=== PATIENT | female | born 1935 | race Two or more races ===

== ENCOUNTER 2023-06-29 22:32 | Emergency (ER) | payer OTHER ==
[~2023-06-29] VITALS: Ht 154.9 cm; Wt 50.0 kg
[2023-06-30] MEDS: HYDROcodone-ACET 5/325MG TAB PO ONE (00:09)
[2023-06-30 00:54] LABS: Basophils # (auto) 0 10 ^3/uL (0-0.2); Basophils % (auto) 0.5 % (0.0-2.0); Eosinophils # (auto) 0 10 ^3/uL (0-0.8); Eosinophils % (auto) 0.2 % (0.0-7.0); Hematocrit 38.9 % (36.0-46.0); Hemoglobin 13.2 g/dL (12.2-16.2); Lymphocytes % (auto) 39.6 % (10.0-50.0); Mean Corpuscular Hemoglobin 32.8 pg (28.0-32.0); Mean Corpuscular Hgb Conc. 33.9 g/dL (32.0-36.0); Mean Corpuscular Volume 96.8 fL (80.0-100.0); Monocytes # (auto) 0.9 10 ^3/uL (0-1.3); Monocytes % (auto) 11.3 % (0.0-12.0); Neutrophils # (auto) 3.7 10 ^3/uL (1.6-8.6); Neutrophils % (auto) 48.4 % (37.0-80.0); Nucleated Red Blood Cells % 0.4 %; Red Blood Cells 4.02 10^6/uL (4.0-5.20); White Blood Cell 7.6 10^3/uL (4.4-10.8)
[2023-06-30 01:45] LABS: Erythrocyte Sedimentation Rate 28 mm/hr (0-20)
[2023-06-30 02:40] VITALS: BP 152/64; PULSE 82; RESP 18; O2SAT 97
[2023-06-30] MEDS ORDERED: CLIN300C70 PO (04:48)
== END 2023-06-30 02:45 | disposition home or self-care (01) ==
LOC: ER 22:32 → EDBD 22:32 → ER 06-30 02:45
DX: L03.116 Cellulitis of left lower limb (principal); L03.115 Cellulitis of right lower limb; G62.9 Polyneuropathy, unspecified; E11.9 Type 2 diabetes mellitus without complications; I10 Essential (primary) hypertension
CPT/HCPCS: 36415; 73700; 85025; 85652

== ENCOUNTER 2023-07-19 19:42 | Emergency (ER) | payer OTHER ==
[~2023-07-19] VITALS: Ht 160 cm; Wt 58.5 kg
[~2023-07-19 19:42] MED LIST: CLIN300C70 PO
[2023-07-19 20:51] LABS: Basophils # (auto) 0 10 ^3/uL (0-0.2); Basophils % (auto) 0.3 % (0.0-2.0); Eosinophils # (auto) 0 10 ^3/uL (0-0.8); Eosinophils % (auto) 0.4 % (0.0-7.0); Hematocrit 36.1 % (36.0-46.0); Hemoglobin 12.2 g/dL (12.2-16.2); Lymphocytes # (auto) 3.9 10 ^3/uL (0.4-5.4); Lymphocytes % (auto) 51.4 % (10.0-50.0); Mean Corpuscular Hemoglobin 32.8 pg (28.0-32.0); Mean Corpuscular Hgb Conc. 33.8 g/dL (32.0-36.0); Monocytes # (auto) 0.8 10 ^3/uL (0-1.3); Neutrophils # (auto) 2.9 10 ^3/uL (1.6-8.6); Neutrophils % (auto) 37.9 % (37.0-80.0); Nucleated Red Blood Cells % 0.3 %; Red Blood Cells 3.72 10^6/uL (4.0-5.20); Red Cell Distribution Width 14.6 % (11.8-14.3); White Blood Cell 7.6 10^3/uL (4.4-10.8)
[2023-07-19] MEDS: HYDROcodone-ACET 5/325MG TAB PO ONE (20:55)
[2023-07-19 20:56] VITALS: BP 124/65; PULSE 65; RESP 18; TEMP 97.8; O2SAT 99
[2023-07-19 21:08] LABS: Alanine Aminotransferase 19 U/L (7-40); Albumin 4.1 g/dL (3.2-4.8); Alkaline Phosphatase 72 U/L (46-116); Anion Gap 5 (5-15); Aspartate Aminotransferase 20 U/L (13-40); BUN/Creatinine Ratio 10.6 (10.0-20.0); Bilirubin, Total 0.4 mg/dL (0.2-1.0); Blood Urea Nitrogen 25 mg/dL (9-23); CRP High Sensitivity 0.42 mg/dL (<1.0); Calcium 9.5 mg/dL (8.5-10.1); Carbon Dioxide 27 mmol/L (20-30); Chloride 106 mmol/L (98-107); Glucose 123 mg/dL (74-106); Potassium 3.9 mmol/L (3.5-5.1); Sodium 138 mmol/L (136-145); Total Protein 6.8 g/dL (5.7-8.2)
[2023-07-19 21:24] LABS: Erythrocyte Sedimentation Rate 24 mm/hr (0-20)
[2023-07-19] MEDS: PIPERACILLIN-TAZO 4.5GM 100 ML IV ONE (23:18)
[2023-07-19] MEDS ORDERED: ACET300T58 PO (23:40)
== END 2023-07-20 00:25 | disposition home or self-care (01) ==
LOC: ER 19:42
DX: L03.032 Cellulitis of left toe (principal); I12.9 Hypertensive chronic kidney disease with stage 1 through stage 4 chronic kidney disease, or unspecified chronic kidney disease; E11.22 Type 2 diabetes mellitus with diabetic chronic kidney disease; N18.9 Chronic kidney disease, unspecified
CPT/HCPCS: 36415; 73700; 80053; 85025; 85652; 86141; 96365; 99285; J2543

== ENCOUNTER 2023-11-18 10:51 | Emergency (ER) | payer OTHER ==
[~2023-11-18] VITALS: Ht 160 cm; Wt 63.6 kg
[~2023-11-18 10:51] MED LIST changes: +CLIN1CAP70 PO; -CLIN300C70 PO
[2023-11-18 13:16] LABS: Basophils # (auto) 0 10 ^3/uL (0-0.2); Basophils % (auto) 0.3 % (0.0-2.0); Eosinophils # (auto) 0.1 10 ^3/uL (0-0.8); Eosinophils % (auto) 1.5 % (0.0-7.0); Hematocrit 31.6 % (36.0-46.0); Hemoglobin 10.4 g/dL (12.2-16.2); Lymphocytes # (auto) 2.2 10 ^3/uL (0.4-5.4); Lymphocytes % (auto) 36.6 % (10.0-50.0); Mean Corpuscular Hemoglobin 33.4 pg (28.0-32.0); Mean Corpuscular Volume 101.2 fL (80.0-100.0); Monocytes # (auto) 0.6 10 ^3/uL (0-1.3); Monocytes % (auto) 9.5 % (0.0-12.0); Neutrophils # (auto) 3.2 10 ^3/uL (1.6-8.6); Neutrophils % (auto) 52.1 % (37.0-80.0); Nucleated Red Blood Cells % 0.6 %; Red Blood Cells 3.12 10^6/uL (4.0-5.20); Red Cell Distribution Width 16.1 % (11.8-14.3); White Blood Cell 6.1 10^3/uL (4.4-10.8)
[2023-11-18 13:27] LABS: Alanine Aminotransferase 17 U/L (7-40); Albumin 3.8 g/dL (3.2-4.8); Alkaline Phosphatase 63 U/L (46-116); Anion Gap 7 (5-15); Aspartate Aminotransferase 15 U/L (13-40); BUN/Creatinine Ratio 15.5 (10.0-20.0); Bilirubin, Total 0.4 mg/dL (0.2-1.0); Blood Urea Nitrogen 40 mg/dL (9-23); Calcium 9.1 mg/dL (8.5-10.1); Carbon Dioxide 23 mmol/L (20-30); Chloride 108 mmol/L (98-107); Glucose 83 mg/dL (74-106); Potassium 3.5 mmol/L (3.5-5.1); Sodium 138 mmol/L (136-145)
[2023-11-18 13:36] LABS: CRP High Sensitivity 0.93 mg/dL (<1.0)
[2023-11-18 14:04] LABS: Erythrocyte Sedimentation Rate 29 mm/hr (0-20)
[2023-11-18] MEDS: HYDROcodone-ACET 5/325MG TAB PO ONE (22:17)
[2023-11-18] MEDS: ENOXAPARIN SOD 60 MG/0.6 ML SYRINGE SC SCH (22:40)
[2023-11-19 01:00] VITALS: PULSE 63; RESP 19; O2SAT 100
[2023-11-19] MEDS: MORPHINE SULFATE INJ 2 MG/ml SYRG IV ONE (01:21)
[2023-11-19] MEDS: ONDANSETRON HCL 4 MG/2 ML VIAL IV ONE (01:22)
[2023-11-19 01:35] VITALS: BP 152/68; PULSE 68; RESP 19; TEMP 98.2; O2SAT 100
== END 2023-11-18 21:52 | disposition short-term general hospital (02) ==
LOC: ER 10:51 → EDBD 10:51 → ER 21:52
DX: I73.9 Peripheral vascular disease, unspecified (principal); I77.1 Stricture of artery; M79.604 Pain in right leg; M79.605 Pain in left leg; I12.9 Hypertensive chronic kidney disease with stage 1 through stage 4 chronic kidney disease, or unspecified chronic kidney disease; E11.22 Type 2 diabetes mellitus with diabetic chronic kidney disease; N18.9 Chronic kidney disease, unspecified; J44.9 Chronic obstructive pulmonary disease, unspecified; F17.210 Nicotine dependence, cigarettes, uncomplicated
CPT/HCPCS: 36415; 72131; 80053; 83605; 83880; 84484; 85025; 85379; 85652; 86141; 93925; 93970; 96372; 96374; 96375; 99285; J1650

== ENCOUNTER 2024-03-21 11:34 | Emergency (ER) | payer OTHER ==
[~2024-03-21] VITALS: Ht 157.5 cm; Wt 57.0 kg
--- NOTE | 2024-03-21 12:30 | ED.PDOC ---
History of Present Illness(SKN HPI Comments 88 y.o female accompanied by son, presents to the ED for an evaluation of a wound check. Son reports patient has a wound to the left third toe x 2 years, had scab formation which fell off yesterday and now notes wound is exposed with some bone exposure. Patient reports wound care nurse stopped by her home yesterday and noticed the scab had fallen off and referred her to the ED to r/o infection. Patient complains of pain to the wound on palpation. No fever, chills, nausea, vomiting reported. Son states patient is able to ambulate with walker and cane. Patient has a medical history of DM, HTN, CHF, CFK, and COPD. Chief Complaint: Wound Check Time Seen by MD: 12:15 Primary Care Provider: RESHMA History of Present Illness: Nurses Notes, Medications, Allergies Allergies: Coded Allergies: NO KNOWN ALLERGIES (Unverified , 06/29/23) Home Meds Active Scripts Clindamycin Hcl (Clindamycin Hcl) 300 Mg Cap, 1 CAP PO TID for 7 Days, #21 CAP Prov:HANSEL MADDOX 08/21/23 Clindamycin Hcl (Clindamycin Hcl) 300 Mg Cap, 450 MG PO TID for 7 Days, #32 CAP Prov:LINWOOD SCOTT PAC 06/30/23 Information Source: Patient, Relative (son) Mode of Arrival: Wheelchair Severity: Moderate Timing: Came on: Gradually Duration: Since onset Location: Foot Mechanism: Preceding Wound Wound Type: Other Tetanus: UTD History of: Diabetes Associated Signs and Symptoms: Swelling, Pain Past Medical History PAST MEDICAL HISTORY: CKF, COPD, DM, HTN Surgical History: Unknown 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 Family History Family History: Reviewed,noncontributory to illness Social History Smoker: Cigarettes, Greater Than 1 Pack/Day Alcohol: Denies ETOH Use Drugs: Denies Drug Use Lives In: Home Constitutional: denies: chills, diaphoresis, fatigue, fever, malaise, sweats, weakness, others EENTM: denies: blurred vision, double vision, ear bleeding, ear discharge, ear drainage, ear pain, ear ringing, eye pain, eye redness, hearing loss, mouth pain, mouth swelling, nasal discharge, nose bleeding, nose congestion, nose pain, photophobia, tearing, throat pain, throat swelling, voice changes, others Respiratory: denies: cough, hemoptysis, orthopnea, SOB at rest, shortness of breath, SOB with excertion, stridor, wheezing, others Cardiovascular: denies: chest pain, dizzy spells, diaphoresis, Dyspnea on exertion, edema, irregular heart beat, left arm pain, lightheadedness, palpitations, PND, syncope, others Gastrointestinal: denies: abdomen distended, abdominal pain, blood streaked bowels, constipated, diarrhea, dysphagia, difficulty swallowing, hematemesis, melena, nausea, poor appetite, poor fluid intake, rectal bleeding, rectal pain, vomiting, others Genitourinary: denies: abnormal vagina bleeding, burning, dyspareunia, dysuria, flank pain, frequency, hematuria, incontinence, pain, , vagina discharge, urgency, others Neurological: denies: dizziness, fainting, headache, left sided numbness, left sided weakness, numbness, paresthesia, pre-existing deficit, right sided numbness, right sided weakness, seizure, speech problems, tingling, tremors, weakness, others Musculoskeletal: denies: back pain, gout, joint pain, joint swelling, muscle pain, muscle stiffness, neck pain, others Integumetry: reports: wounds (left third toe ); denies: bruises, change in color, change in hair/nails, dryness, laceration, lesions, lumps, rash, others Allergic/Immunocompromised: denies: Difficulty Healing, Frequent Infections, Hives, Itching, others Hematologic/Lymphatic: denies: anemia, blood clots, easy bleeding, easy bruising, swollen glands, others Endocrine: denies: excessive hunger, excessive sweating, excessive thirst, excessive urination, flushing, intolerance to cold, intolerance to heat, unexplained weight gain, unexplained weight loss, others Psychiatric: denies: anxiety, bipolar disorder, depression, hopeless, panic disorder, schizophrenia, sleepless, suicidal, others All Other Systems: Reviewed and Negative Physical Exam General Appearance: Mild Distress, Normal HEENT: Normal ENT Inspection, Pharynx Normal, TMs Normal Neck: Full Range of Motion, Non-Tender, Normal, Normal Inspection Respiratory: Chest Non-Tender, Lungs Clear, No Accessory Muscle Use, No Respiratory Distress, Normal Breath Sounds Cardiovascular: No Edema, No JVD, No Murmur, No Gallop, Normal Peripheral Pulses, Regular Rate/Rhythm Breast Exam: Deferred Gastrointestinal: No Organomegaly, Non Tender, No Pulsatile Mass, Normal Bowel Sounds, Soft Genitalia: Deferred Pelvic: Deferred Rectal: Deferred Extremities: No calf tenderness, Normal capillary refill, Normal inspection, Normal range of motion, Non-tender, No pedal edema Musculoskeletal : Apperance: Normal Neurologic: Alert, director of curriculum and instruction II-XII nml as Tested, No Motor Deficits, Normal Affect, Normal Mood, No Sensory Deficits Cerebellar Function: NOT DONE Reflexes: NOT DONE Skin: Dry, Normal Color, Warm, Wounds (Left 3rd toe) Peripheral Pulses: 3+ Radial (R), 3+ Radial (L) Lymphatic: No Adenopathy Was a procedure done? Was a procedure done?: No Differential Diagnosis (INTG) Differential Diagnosis: Cellulitis Differential Diagnosis: Osteomyelitis, Puncture Wound X-Ray, Labs, Meds, VS Vital Signs Date Time Temp Pulse Resp B/P (MAP) Pulse Ox O2 Delivery O2 Flow Rate FiO2 03/21/24 11:50 97.6 54 18 119/49 (72) 100 Patient alert. Came in because of left foot wound for many years. Has been getting worse recently. Vitals stable. Answering all questions. On examination she has skin breakage in the 3rd toe. No bone exposure. Spoke with [facility] physician. The [facility] physician had stated that she is not a candidate for surgery. She has been worked up fully for peripheral vascular disease. Chronic kidney disease. Has a appointment with her ginger farmer. Was given prescription of Keflex clindamycin antibiotic. Vascular study. [facility] physician will follow the patient. Explained to the patient that she will need to see her primary care physician immediately. Had an appointment set for to follow up with ginger farmer. Was told follow up with her primary care physician. Was told to come back if there is any problem. Time of 1ST Reevaluation: 12:25 Reevaluation 1ST: Improved Patient Education/Counseling: Diagnosis, Treatment, Prognosis Family Education/Counseling: Diagnosis, Treatment, Prognosis Departure 1 Departure Time of Disposition: 12:36 Impression: Primary Impression: Cellulitis Qualified Codes: L03.116 - Cellulitis of left lower limb Additional Impression: Diabetic foot ulcer Qualified Codes: E13.621 - Other specified diabetes mellitus with foot ulcer; L97.529 - Non-pressure chronic ulcer of other part of left foot with unspecified severity Disposition: 09 ADMITTED INPATIENT Admit to: Med Surg Condition: Guarded e-Prescriptions Clindamycin Hcl (Clindamycin Hcl) 300 Mg Cap 150 MG PO TID for 10 Days, #30 CAP Prov: MIGUEL ANGEL CÁRDENAS MD 03/21/24 Cephalexin (KEFLEX CAPSULE) 250 Mg Cp 250 MG PO QID for 10 Days, #40 BOTTLE Prov: MIGUEL ANGEL CÁRDENAS MD 03/21/24 Critical Care Note Critical Care Time?: No Stability Stability form required: No I personally scribed for MIGUEL ANGEL CÁRDENAS MD ([email or web address]) on 03/21/24 at 12:30. Electronically submitted by Dottie Campbell ([facility]). MIGUEL ANGEL CÁRDENAS MD Mar 21, 2024 12:30
[2024-03-21] MEDS ORDERED: CEPH250C PO (12:37)
[2024-03-21] MEDS ORDERED: CLIN1CAP70 PO (12:37)
[2024-03-21 12:53] VITALS: BP 119/49; PULSE 54; RESP 18; TEMP 97.9; O2SAT 100
--- NOTE | 2024-03-21 15:23 | DVHDS2 ---
Discharge Summary Date of Admission Date of Discharge: Mar 21, 2024 Brief Hx & Hospital Course: Patient is an 88-year-old female with past medical history of CKD stage IV, tobacco dependence, peripheral vascular disease, who presents for wound check evaluation of her third left toe. Patient has been receiving home health for her left third toe reportedly for the past 2 years. She noted that the toenail had fallen off. She denies any fever, chills, swelling at the site. She denies any discharge at the site. The toe was inspected and no bone was exposed or noted. Patient did not have any signs of sepsis. Patient was discharged on clindamycin and Keflex for her skin wound. Patient recently completed angioplasty of the right lower extremity. She was planning to have the left lower extremity done during her previous hospitalization however the procedure could not be completed due to her CKD stage IV and inability to lay flat. Cain eddy has pending appointments with podiatry and vascular surgery. I informed the patient that these appointments will be expedited with the assistance of [facility] case management. Patient is to continue home health and bandage changes of the left third toe. Patient will need antibiotic treatment and vascular intervention prior to any surgical intervention due to history of PAD. Patient and son were in agreement with the plan.Patient counseled on importance of smoking cessation for wound healing. Patient discharged home in stable condition. Patient given ER return precautions. [facility] case management to arrange follow-up appointments. Condition at Discharge: Fair Final Diagnosis/Problems List Cellulitis of Left 3rd Toe Secondary Diagnosis: Tobacco Dependence PAD Type 2 DM Bedbound state Discharge Disposition: Home Discharge Instruct/Medications Diet: Cardiac 2g Na,low cholest Activity: No Restrictions, As Tolerated Follow Up/Referral: Folllow up to be arranged with podiatry and vascular surgery ASHLEY with [facility] . Medications: Clindamycin and Keflex Discharge Statement: "Patient was advised to return to the ER or call 911 if any headaches, dizz iness, shortness of breath, chest pain, abdominal pain, bleeding, fevers, or worsening of medical condition. Patient was counseled about treatment plan, medications, possible side effects, patientverbalized understanding. All questions were answered to the best of my ability. This discharge took greater then 30 minutes in planning, reviewing documentation, counseling the patient, and discussing with other team members." ASSESSMENT ASSESSMENT Assessment Cellulitis NEWTON ANGEL DO Mar 21, 2024 15:23
== END 2024-03-21 14:18 | disposition admitted as inpatient to this hospital (09) ==
LOC: ER 11:34
DX: E11.621 Type 2 diabetes mellitus with foot ulcer (principal); L97.521 Non-pressure chronic ulcer of other part of left foot limited to breakdown of skin; L03.032 Cellulitis of left toe; I13.0 Hypertensive heart and chronic kidney disease with heart failure and stage 1 through stage 4 chronic kidney disease, or unspecified chronic kidney disease; E11.22 Type 2 diabetes mellitus with diabetic chronic kidney disease; N18.9 Chronic kidney disease, unspecified; I50.9 Heart failure, unspecified; J44.9 Chronic obstructive pulmonary disease, unspecified; F17.210 Nicotine dependence, cigarettes, uncomplicated; Z79.899 Other long term (current) drug therapy

== ENCOUNTER 2025-03-03 17:36 | Emergency (ER) | payer OTHER ==
[~2025-03-03] VITALS: Ht 170.2 cm; Wt 68.2 kg
[~2025-03-03 17:36] MED LIST changes: +CEPH250C PO
[2025-03-03] MEDS: ACETAMINOPHEN 325 MG TAB PO ONE (18:16)
[2025-03-03] MEDS: SODIUM CHLORIDE 0.9% 1,000 ML IV ONE (18:21)
[2025-03-03 18:22] VITALS: PULSE 76; RESP 18; O2SAT 93
[2025-03-03 19:02] LABS: Hematocrit 29.9 % (36.0-46.0); Hemoglobin 10.1 g/dL (12.2-16.2); Mean Corpuscular Hemoglobin 32.1 pg (28.0-32.0); Mean Corpuscular Volume 94.8 fL (80.0-100.0); Nucleated Red Blood Cells % 0.9 %
[2025-03-03 19:18] LABS: Alanine Aminotransferase 15 U/L (7-40); Albumin 3.5 g/dL (3.2-4.8); Alkaline Phosphatase 54 U/L (46-116); Anion Gap 9 (5-15); BUN/Creatinine Ratio 8.0 (10.0-20.0); Bilirubin, Total 0.4 mg/dL (0.2-1.0); Blood Urea Nitrogen 23 mg/dL (9-23); Carbon Dioxide 24 mmol/L (20-31); Glucose 105 mg/dL (74-106); Lipase 30 U/L (12-53); Potassium 4.6 mmol/L (3.5-5.1); Sodium 141 mmol/L (136-145); Total Protein 6.4 g/dL (5.7-8.2)
[2025-03-03 19:19] LABS: Calcium 8.6 mg/dL (8.7-10.4); Chloride 108 mmol/L (98-107)
[2025-03-03 19:29] LABS: Lactic Acid w/Reflex 2.2 mmol/L (0.4-2.0)
[2025-03-03 19:43] VITALS: PULSE 69; RESP 22; O2SAT 98
--- NOTE | 2025-03-03 22:13 | ED.PDOC ---
History of Present Illness HPI Comments This patient is a 89-year-old female who arrives to the ED today via EMS due to complaints of general weakness with diarrhea, hypotension and fever off and on for the past three days. 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 Patient looked mildly toxic at arrival. Patient did display a fever at arrival. Chief Complaint: General Weakness Time Seen by MD: 17:46 Primary Care Provider: RESHMA Reviewed Notes: Nurses Notes, Supplier Development Manager Notes Allergies: Coded Allergies: NO KNOWN ALLERGIES (Unverified , 06/29/23) Home Meds Active Scripts Clindamycin Hcl (Clindamycin Hcl) 300 Mg Cap, 150 MG PO TID for 10 Days, #30 CAP Prov:MIGUEL ANGEL CÁRDENAS MD 03/21/24 Cephalexin (KEFLEX CAPSULE) 250 Mg Cp, 250 MG PO QID for 10 Days, #40 BOTTLE Prov:MIGUEL ANGEL CÁRDENAS MD 03/21/24 Clindamycin Hcl (Clindamycin Hcl) 300 Mg Cap, 1 CAP PO TID for 7 Days, #21 CAP Prov:HANSEL MADDOX 08/21/23 Clindamycin Hcl (Clindamycin Hcl) 300 Mg Cap, 450 MG PO TID for 7 Days, #32 CAP Prov:LINWOOD SCOTT PAC 06/30/23 Information Source: Patient, Emergency Med Personnel Mode of Arrival: EMS Severity: Moderate Timing: Days Duration: Since onset Prehospital treatment: Treatment Past Medical History PAST MEDICAL HISTORY: CKF, COPD, DM, HTN Surgical History: Unknown 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 Family History Family History: Reviewed,noncontributory to illness Social History Smoker: Cigarettes, Greater Than 1 Pack/Day Alcohol: Denies ETOH Use Drugs: Denies Drug Use Lives In: Home Constitutional: reports: fatigue, fever, weakness; denies: chills, diaphoresis, malaise, sweats, others EENTM: denies: blurred vision, double vision, ear bleeding, ear discharge, ear drainage, ear pain, ear ringing, eye pain, eye redness, hearing loss, mouth pain, mouth swelling, nasal discharge, nose bleeding, nose congestion, nose pain, photophobia, tearing, throat pain, throat swelling, voice changes, others Respiratory: denies: cough, hemoptysis, orthopnea, SOB at rest, shortness of breath, SOB with excertion, stridor, wheezing, others Cardiovascular: denies: chest pain, dizzy spells, diaphoresis, Dyspnea on exertion, edema, irregular heart beat, left arm pain, lightheadedness, palpitations, PND, syncope, others Gastrointestinal: reports: diarrhea; denies: abdomen distended, abdominal pain, blood streaked bowels, constipated, dysphagia, difficulty swallowing, hematemesis, melena, nausea, poor appetite, poor fluid intake, rectal bleeding, rectal pain, vomiting, others Genitourinary: denies: abnormal vagina bleeding, burning, dyspareunia, dysuria, flank pain, frequency, hematuria, incontinence, pain, , vagina discharge, urgency, others Neurological: denies: dizziness, fainting, headache, left sided numbness, left sided weakness, numbness, paresthesia, pre-existing deficit, right sided numbness, right sided weakness, seizure, speech problems, tingling, tremors, weakness, others Musculoskeletal: denies: back pain, gout, joint pain, joint swelling, muscle pain, muscle stiffness, neck pain, others Integumetry: denies: bruises, change in color, change in hair/nails, dryness, laceration, lesions, lumps, rash, wounds, others Allergic/Immunocompromised: denies: Difficulty Healing, Frequent Infections, Hives, Itching, others Hematologic/Lymphatic: denies: anemia, blood clots, easy bleeding, easy bruising, swollen glands, others Endocrine: denies: excessive hunger, excessive sweating, excessive thirst, excessive urination, flushing, intolerance to cold, intolerance to heat, unex plained weight gain, unexplained weight loss, others Psychiatric: denies: anxiety, bipolar disorder, depression, hopeless, panic disorder, schizophrenia, sleepless, suicidal, others Physical Exam General Appearance: Moderate Distress (Patient looks [id number] toxic at time of evaluation.), Normal HEENT: Normal ENT Inspection, Pharynx Normal, TMs Normal Neck: Full Range of Motion, Non-Tender, Normal, Normal Inspection Respiratory: Chest Non-Tender, Lungs Clear, No Accessory Muscle Use, No Respiratory Distress, Normal Breath Sounds Cardiovascular: No Edema, No JVD, No Murmur, No Gallop, Normal Peripheral Pulses, Regular Rate/Rhythm Breast Exam: Deferred Gastrointestinal: Other (Nonspecific diffuse bilateral lower abdominal tenderness to palpation throughout. Abdomen was reasonably soft. No pulsatile masses.) Genitalia: Deferred Pelvic: Deferred Rectal: Deferred Extremities: No calf tenderness, Normal inspection, Non-tender Neurologic: Other (Patient was mildly slow in response. Patient may have some progressive dementia.) Cerebellar Function: NOT DONE Reflexes: NOT DONE Skin: Dry, Normal Color, Warm Lymphatic: No Adenopathy Was a procedure done? Was a procedure done?: No Differential Dx Considerations may include: Sepsis, electrolyte abnormality, acute coronary syndrome, renal disease, hypotension, viral illness X-Ray, Labs, Meds, VS Vital Signs Date Time Temp Pulse Resp B/P (MAP) Pulse Ox O2 Delivery O2 Flow Rate FiO2 03/03/25 22:30 70 20 118/46 (70) 95 03/03/25 21:30 69 20 128/45 (72) 98 03/03/25 21:13 99.1 03/03/25 20:00 69 22 133/45 (74) 92 03/03/25 19:43 99.1 69 22 140/46 (77) 98 99.1 03/03/25 19:43 69 22 98 Nasal Cannula* 2 28 03/03/25 18:22 101.4 76 18 146/47 (80) 93 101.4 03/03/25 18:22 76 18 93 Nasal Cannula* 3 32 03/03/25 18:16 101.4 03/03/25 17:47 77 03/03/25 17:45 101.6 110 17 105/55 95 101.6 Lab Test 03/03/25 22:20 03/03/25 22:19 03/03/25 21:37 03/03/25 20:44 Range/Units Influenza Type A Antigen Negative Negative Influenza Type B Antigen Negative Negative SARS-CoV-2 Antigen (Rapid) Negative NEGATIVE Troponin I High Sensitivity 32 </=34 ng/L Lactic Acid Level 1.9 0.4-2.0 mmol/L Test 03/03/25 19:43 03/03/25 18:40 Range/Units Troponin I High Sensitivity 34 39 *H </=34 ng/L White Blood Count 16.9 H 4.4-10.8 10^3/uL Red Blood Count 3.16 L 4.0-5.20 10^6/uL Hemoglobin 10.1 L 12.2-16.2 g/dL Hematocrit 29.9 L 36.0-46.0 % Mean Corpuscular Volume 94.8 80.0-100.0 fL Mean Corpuscular Hemoglobin 32.1 H 28.0-32.0 pg Mean Corpuscular Hemoglobin Concent 33.9 32.0-36.0 g/dL Red Cell Distribution Width 14.7 H 11.8-14.3 % Platelet Count 251 140-450 10^3/uL Mean Platelet Volume 8.9 6.9-10.8 fL Neutrophils (%) (Auto) 67.1 37.0-80.0 % Lymphocytes (%) (Auto) 18.5 10.0-50.0 % Monocytes (%) (Auto) 13.8 H 0.0-12.0 % Eosinophils (%) (Auto) 0.2 0.0-7.0 % Basophils (%) (Auto) 0.4 0.0-2.0 % Neutrophils # (Auto) 11.4 H 1.6-8.6 10 ^3/uL Lymphocytes # (Auto) 3.1 0.4-5.4 10 ^3/uL Monocytes # (Auto) 2.3 H 0-1.3 10 ^3/uL Eosinophils # (Auto) 0 0-0.8 10 ^3/uL Basophils # (Auto) 0.1 0-0.2 10 ^3/uL Nucleated Red Blood Cells 0.9 % Sodium Level 141 136-145 mmol/L Potassium Level 4.6 3.5-5.1 mmol/L Chloride Level 108 H 98-107 mmol/L Carbon Dioxide Level 24 20-31 mmol/L Anion Gap 9 5-15 Blood Urea Nitrogen 23 9-23 mg/dL Creatinine 2.89 H 0.550-1.02 mg/dL Glomerular Filtration Rate Calc 15 >90 mL/min BUN/Creatinine Ratio 8.0 L 10.0-20.0 Serum Glucose 105 74-106 mg/dL Lactic Acid Level 2.2 *H 0.4-2.0 mmol/L Calcium Level 8.6 L 8.7-10.4 mg/dL Total Bilirubin 0.4 0.2-1.0 mg/dL Aspartate Amino Transferase (AST) 32 13-40 U/L Alanine Aminotransferase (ALT) 15 7-40 U/L Alkaline Phosphatase 54 46-116 U/L B-Type Natriuretic Peptide 237.33 0-100 pg/mL Total Protein 6.4 5.7-8.2 g/dL Albumin 3.5 3.2-4.8 g/dL Lipase 30 12-53 U/L Current Medications Medications (Trade) Dose Ordered Sig/Ashley Route Start Time Stop Time Status Last Admin Acetaminophen (Tylenol Tablet) 1,000 mg ONCE ONCE PO 03/03/25 18:00 03/03/25 18:01 DC 03/03/25 18:16 Sodium Chloride 1,000 ml @ 150 mls/hr Q6H40M ONCE IV 03/03/25 18:00 03/04/25 00:39 03/03/25 18:21 X-Ray, Labs, Meds, VS Comment All studies performed in the ED were evaluated by me personally. Several studies were pending at time of this note. Serum studies confirmed a leukocytosis, moderate anemia, elevated lactic acid, elevated troponin and what appears to be poorly controlled CHF. Patient will be admitted to address the general weakness which may be related to her leukocytosis and CHF concerns. This patient's insurance is [employer] and therefore, I discussed the patient presentation as well as laboratory and EKG results with Dr. Cueva. She has advised to send the patient home on oral antibiotics and she would schedule the patient for outpatient follow up with Cardiology and primary care provider. Time of 1ST Reevaluation: 22:12 Reevaluation 1ST: Improved Consultation: PCP, Cardiology Patient Education/Counseling: Diagnosis, Treatment Family Education/Counseling: Diagnosis, Treatment SEPSIS Sepsis Screen Date sepsis recognized/suspect: Mar 03, 2025 Time Sepsis recognized/suspect: 1947 Recent Procedure: No On Antibiotic Therapy: No Respiratory Rate >20: Yes Heart Rate >90: No Temp<36 C (96.8 F) or >38.3 C: No SBP <90 or MAP <65 mmHG: No New Acute Mental Status Change: No Is the patient on CPAP, BIPAP,: No Physician Orders Sodium Chloride 0.9% (03/03/25 18:00) Heplock Iv (03/03/25 ) Urinalysis (03/03/25 17:58) Insert Rivera Catheter QSHIFT (03/03/25 17:58) Urine Bacterial Culture (03/03/25 17:58) Blood Culture (03/03/25 17:58) Sulfamethoxazole W/Trimeth Tab (Bactrim (03/03/25 23:15) Vital Signs Date Time Temp Pulse Resp B/P (MAP) Pulse Ox O2 Delivery O2 Flow Rate FiO2 03/03/25 22:30 70 20 118/46 (70) 95 03/03/25 21:30 69 20 128/45 (72) 98 03/03/25 21:13 99.1 03/03/25 20:00 69 22 133/45 (74) 92 03/03/25 19:43 99.1 69 22 140/46 (77) 98 99.1 03/03/25 19:43 69 22 98 Nasal Cannula* 2 28 03/03/25 18:22 101.4 76 18 146/47 (80) 93 101.4 03/03/25 18:22 76 18 93 Nasal Cannula* 3 32 03/03/25 18:16 101.4 03/03/25 17:47 77 03/03/25 17:45 101.6 110 17 105/55 95 101.6 Laboratory Tests Test 03/03/25 18:40 03/03/25 20:44 Lactic Acid Level 2.2 mmol/L (0.4-2.0) *H 1.9 mmol/L (0.4-2.0) White Blood Count 16.9 10^3/uL (4.4-10.8) H Medications Medications Dose Ordered Sig/Ashley Route Start Time Stop Time Status Last Admin Dose Admin Acetaminophen 1,000 mg ONCE ONCE PO 03/03/25 18:00 03/03/25 18:01 DC 03/03/25 18:16 Sodium Chloride 1,000 ml @ 150 mls/hr Q6H40M ONCE IV 03/03/25 18:00 03/04/25 00:39 03/03/25 18:21 Departure 1 Departure Time of Disposition: 22:12 Impression: Primary Impression: Leukocytosis Additional Impressions: Anemia Elevated lactic acid level Elevated troponin Acute exacerbation of CHF (congestive heart failure) Disposition: HOME / SELF CARE / HOMELESS Condition: Fair Additional Instructions: Advised patient utilize antibiotics as directed until completion additionally, patient will be contacted by her insurance carrier to be re-evaluated by Cardiology and her primary care provider. e-Prescriptions Acetaminophen (Acetaminophen) 500 Mg Tab 500 MG PO Q4HP PRN, #30 TAB Prov: MILAN YEE [facility] 03/03/25 Ondansetron Odt 4MG Tab (ZOFRAN PO) 4 Mg Tb 4 MG PO Q6HP PRN, #20 TAB ODT TAB-DISSOLVE IN MOUTH, THEN SWALLOW Prov: MILAN YEE [facility] 03/03/25 Sulfamethoxazole W/Trimethopri (Bactrim Ds Tablet) 1 Tab Tb 1 TAB PO BID for 7 Days, #14 TAB Prov: MILAN YEE [facility] 03/03/25 Discharged With: Self, Friend Critical Care Note Critical Care Time?: No Stability Stability form required: No Heart Score Heart Score: Heart Score Response (Comments) Value History N/A 0 EKG N/A 0 Age N/A 0 Risk Factors N/A 0 Troponin N/A 0 Total 0 MILAN YEE [facility] Mar 03, 2025 22:13
--- NOTE | 2025-03-03 22:22 | ECG ---
[facility] Test Date: 2025-03-03 Test Time: 17:47:26 Pat Name: GENI SPOKANE Department: [facility] ED Patient ID: [facility]-[id number] Room: Gender: F Director Of Accounts Receivable: : 1935 Requested By: MILAN YEE Order Number: [id number] Reading MD: Brandon Downey Measurements Intervals [place] Rate: 77 P: 57 SD: 160 QRS: 68 QRSD: 68 T: 178 QT: 449 QTc: 509 Interpretive Statements Sinus rhythm Consider left atrial enlargement Consider left ventricular hypertrophy Abnrm T, consider ischemia, anterolateral lds Prolonged QT interval Electronically Signed On 03-06-2025 18:41:59 PDT by Brandon Downey Please click the below link to view image of tracing.
[2025-03-03 23:03] LABS: COVID19 ANTIGEN SOFIA FIA NEGATIVE (NEGATIVE)
[2025-03-03] MEDS: SULFAMETHOX W/TRIMETH(800/160MG) DS TAB PO ONE (23:15)
[2025-03-03] MEDS ORDERED: ZOFR4T PO (23:18)
[2025-03-03] MEDS ORDERED: ACET500T58 PO (23:18)
[2025-03-03] MEDS ORDERED: BACDST PO (23:18)
--- NOTE | 2025-03-04 01:11 | DVH ---
CHEST RADIOGRAPH Indication: fever Technique: Single frontal view of the chest was obtained COMPARISON: None FINDINGS: Lines and Tubes: None Lungs: Moderate diffuse increased prominence of the pulmonary vasculature. Probable small left pleura l effusion. No pneumothorax. Cardiomediastinal contours: Cardiomegaly. Bones: Unremarkable IMPRESSION: 1. Cardiomegaly with moderate pulmonary vascular congestion and probable small left pleural effusion.
[2025-03-04] MEDS ORDERED: FUROSEMIDE 40 MG/4 ML VIAL IV ONE (02:00)
[2025-03-04] MEDS ORDERED: FUROSEMIDE 40 MG TAB PO ONE (02:15)
[2025-03-04] MEDS: FUROSEMIDE 40 MG TAB PO ONE (02:17)
[2025-03-04 07:29] VITALS: PULSE 88; PULSE 92; RESP 22; RESP 29; O2SAT 92; O2SAT 96
[2025-03-04] MEDS ORDERED: levoFLOXacin 500 MG TAB PO ONE (10:15)
[2025-03-04 10:17] VITALS: BP 135/59; PULSE 92; RESP 19; TEMP 97.7; O2SAT 97
--- NOTE | 2025-03-05 18:27 | DVHDS2 ---
Physician Discharge Progress N Final Diagnosis: Elevated WBC, possibly due to UTI Operations or Procedures: Operations or Procedures none Other Interventions Other Interventions lab results, EKG, CXR Consultations: Consultations none Commentary: Commentary 89-year-old female, hospice patient with COPD, HTN, DM, dementia was brought to the ED today c/o general weakness, fever, diarrhea, hypotension for the past three days. However, in the ER her blood pressure was elevated and she was given Hydralazine. Her first troponin was 39, then it was repeated twice and was 34 and 32. CXR showed no PNA. COVID and FLU results were negative. WBC was elevated, possibly due to UTI, since the patient had h/o previous UTIs. Patient received Rocephin and Bactrim in the ED. Her VS were stable and she was discharged home to continue Abx and f/u with PMD and hospice care. Condition on Discharge: Stable Disposition: Hospice - Home SNF Discharge Will this Physician continue t: No Discharge Instructions: Diet: Consistent carbohydrate Activity: No Restrictions, As Tolerated Follow Up/Referral: PMD and hospice Medications: Continue home medications and Bactrim Follow Up Care: Discharge Statement: "Patient was advised to return to the ER or call 911 if any headaches, dizziness, shortness of breath, chest pain, abdominal pain, bleeding, fevers, or worsening of medical condition. Patient was counseled about treatment plan, medications, possible side effects, patientverbalized understanding. All questions were answered to the best of my ability. This discharge took greater then 30 minutes in planning, reviewing documentation, counseling the patient, and discussing with other team members." DAMON COLEMAN MD Mar 05, 2025 18:27
== END 2025-03-04 10:44 | disposition home or self-care (01) ==
LOC: ER 17:36 → EDBD 17:36 → ER 03-04 10:44
DX: I11.0 Hypertensive heart disease with heart failure (principal); I50.9 Heart failure, unspecified; J44.9 Chronic obstructive pulmonary disease, unspecified; F03.90 Unspecified dementia, unspecified severity, without behavioral disturbance, psychotic disturbance, mood disturbance, and anxiety; E11.9 Type 2 diabetes mellitus without complications; D72.829 Elevated white blood cell count, unspecified; D64.9 Anemia, unspecified; E87.20 Acidosis, unspecified; F17.210 Nicotine dependence, cigarettes, uncomplicated; Z87.440 Personal history of urinary (tract) infections; R19.7 Diarrhea, unspecified; R50.9 Fever, unspecified; E86.0 Dehydration; Z20.822 Contact with and (suspected) exposure to COVID-19
CPT/HCPCS: 36415; 71045; 80053; 83605; 83690; 83880; 84484; 85025; 87040; 87426; 87804; 93005; 96361; 96365; 99285; J0696; J7030; 96375

== ENCOUNTER 2025-03-16 04:33 | Inpatient (IN) | payer OTHER ==
[~2025-03-16] VITALS: Ht 160 cm; Wt 50.7 kg
[~2025-03-16 04:33] MED LIST changes: +ACET500T58 PO; +BACDST PO; +ZOFR4T PO
--- NOTE | 2025-03-16 05:37 | ECG ---
[facility] Test Date: 2025-03-16 Test Time: 05:20:20 Pat Name: GENI LEDYARD Department: [facility] ED Room: 0279T Gender: F Developer Designer: ASIM : [id number] Requested By: YANET GIBSON Order Number: [id number] Reading MD: Brandon Downey Measurements Intervals [place] Rate: 69 P: 51 OR: 152 QRS: 42 QRSD: 73 T: 20 QT: 362 QTc: 388 Interpretive Statements Sinus rhythm Atrial premature complex Abnormal R-wave progression, early transition Consider left ventricular hypertrophy Electronically Signed On 03-23-2025 13:16:17 PST by Brandon Downey Please click the below link to view image of tracing.
[2025-03-16] MEDS: SODIUM CHLORIDE 0.9% 1,000 ML IV ONE ×2 (05:45→10:25)
[2025-03-16] MEDS: ACETAMINOPHEN 325 MG TAB PO ONE (05:48)
[2025-03-16] MEDS: SODIUM CHLORIDE 0.9% 500 ML IV ONE (06:16)
--- NOTE | 2025-03-16 06:19 | DVH ---
CHEST RADIOGRAPH Indication: Suspected Sepsis Technique: Single frontal view of the chest was obtained COMPARISON: XY CHEST PORTABLE on DOS: 03/04/25 FINDINGS: Lines and Tubes: None Lungs: Increased interstitial prominence. This may represent pulmonary vascular congestion and/or vir al pneumonia. Pleura: No effusion.No pneumothorax. Cardiomediastinal contours: Cardiomegaly. Bones: Unremarkable IMPRESSION: Increased interstitial prominence. This may represent pulmonary vascular congestion and/or viral pneumonia.
[2025-03-16 06:30] LABS: Hematocrit 28.6 % (36.0-46.0); Hemoglobin 9.5 g/dL (12.2-16.2); Mean Corpuscular Hemoglobin 31.8 pg (28.0-32.0); Mean Corpuscular Volume 95.1 fL (80.0-100.0); Nucleated Red Blood Cells % 0.0 %
[2025-03-16 06:38] LABS: Chloride 104 mmol/L (98-107); Potassium 4.7 mmol/L (3.5-5.1)
[2025-03-16 06:40] LABS: Anion Gap 8 (5-15); Calcium 8.7 mg/dL (8.7-10.4); Carbon Dioxide 23 mmol/L (20-31)
[2025-03-16 06:43] LABS: Sodium 135 mmol/L (136-145)
[2025-03-16 06:45] LABS: BUN/Creatinine Ratio 6.0 (10.0-20.0); Blood Urea Nitrogen 20 mg/dL (9-23)
[2025-03-16 06:46] LABS: Glucose 144 mg/dL (74-106)
--- NOTE | 2025-03-16 07:03 | ED.PDOC ---
History of Present Illness HPI Comments 89-year-old female BIBA with son by bedside, prior medical history of CKD stage IV, COPD, diabetes, hypertension and a chief complaint of generalized weakness. Son reports on numbness in the patient being confused as a "deer seeing car lights, left arm pain and unable to lift it by herself, 91% on 3L O2 via NC, which all started 0300 this morning. Denies any other symptoms at this time. Denies chills, fever, N/V/D, SOB, CP. No other associated symptoms, modifiers, recent injuries or sick contacts present at this time. Chief Complaint: General Weakness Time Seen by MD: 07:00 Primary Care Provider: RESHMA Reviewed Notes: Nurses Notes, Medications, Allergies Allergies: Coded Allergies: NO KNOWN ALLERGIES (Unverified , 06/29/23) Home Meds Active Scripts Acetaminophen (Acetaminophen) 500 Mg Tab, 500 MG PO Q4HP PRN, #30 TAB Prov:MILAN YEE PAC 03/03/25 Ondansetron Odt 4MG Tab (ZOFRAN PO) 4 Mg Tb, 4 MG PO Q6HP PRN, #20 TAB ODT TAB-DISSOLVE IN MOUTH, THEN SWALLOW Prov:MILAN YEE PAC 03/03/25 Sulfamethoxazole W/Trimethopri (Bactrim Ds Tablet) 1 Tab Tb, 1 TAB PO BID for 7 Days, #14 TAB Prov:MILAN YEE PAC 03/03/25 Clindamycin Hcl (Clindamycin Hcl) 300 Mg Cap, 150 MG PO TID for 10 Days, #30 CAP Prov:MIGUEL ANGEL CÁRDENAS MD 03/21/24 Cephalexin (KEFLEX CAPSULE) 250 Mg Cp, 250 MG PO QID for 10 Days, #40 BOTTLE Prov:MIGUEL ANGEL CÁRDENAS MD 03/21/24 Clindamycin Hcl (Clindamycin Hcl) 300 Mg Cap, 1 CAP PO TID for 7 Days, #21 CAP Prov:HANSEL MADDOX 08/21/23 Clindamycin Hcl (Clindamycin Hcl) 300 Mg Cap, 450 MG PO TID for 7 Days, #32 CAP Prov:LINWOOD SCOTT PAC 06/30/23 Information Source: Patient, Relative (Child) Mode of Arrival: EMS Severity: Moderate Timing: Hours Duration: Since onset, Hours Prehospital treatment: None Past Medical History PAST MEDICAL HISTORY: CKF, COPD, DM, HTN Surgical History: Unknown [employer] History: Unknown Family History Family History: Reviewed,noncontributory to illness, Unknown Social History Smoker: Quit Greater Than 1 Year Alcohol: Denies ETOH Use Drugs: Denies Drug Use Lives In: Home Unable to Obtain due to: Altered Mental Status All Other Systems: Reviewed and Negative Physical Exam General Appearance: Moderate Distress, Normal HEENT: Normal ENT Inspection, Pharynx Normal, TMs Normal Neck: Full Range of Motion, Non-Tender, Normal, Normal Inspection Respiratory: Chest Non-Tender, Lungs Clear, No Accessory Muscle Use, No Respiratory Distress, Normal Breath Sounds Cardiovascular: No Edema, No JVD, No Murmur, No Gallop, Normal Peripheral Pulses, Regular Rate/Rhythm Breast Exam: Deferred Gastrointestinal: No Organomegaly, Non Tender, No Pulsatile Mass, Normal Bowel Sounds, Soft Genitalia: Deferred Pelvic: Deferred Rectal: Deferred Extremities: No calf tenderness, Normal capillary refill, Non-tender, No pedal edema Musculoskeletal : Apperance: Normal Neurologic: Alert, vocational rehab consultant II-XII nml as Tested, No Motor Deficits, Normal Affect, Normal Mood, No Sensory Deficits Cerebellar Function: NOT DONE Reflexes: NOT DONE Skin: Dry, Normal Color, Warm Peripheral Pulses: 3+ Radial (R), 3+ Radial (L) Lymphatic: No Adenopathy Was a procedure done? Was a procedure done?: No Differential Dx Considerations may include: Anemia Electrolyte imbalance X-Ray, Labs, Meds, VS Vital Signs Date Time Temp Pulse Resp B/P (MAP) Pulse Ox O2 Delivery O2 Flow Rate FiO2 03/16/25 08:00 66 03/16/25 08:00 97.9 65 15 118/45 (69) 96 97.9 03/16/25 07:00 68 15 121/42 (68) 94 03/16/25 06:58 101.5 03/16/25 06:58 101.5 101.5 03/16/25 05:48 101.9 03/16/25 05:30 Nasal Cannula* 2 28 03/16/25 05:24 101.9 101.9 03/16/25 05:20 69 03/16/25 05:12 100.8 66 22 139/47 (77) 97 100.8 03/16/25 04:47 102.1 70 16 110/63 96 102.1 Lab Test 03/16/25 08:28 03/16/25 05:51 Range/Units Urine Color Yellow Yellow Urine Clarity Turbid H Clear Urine pH 5.5 5.0-9.0 Urine Specific [place] 1.021 1.001-1.035 Urine Protein 1+ H Negative Urine Ketones Trace Negative Urine Blood Negative Negative /uL Urine Nitrite Negative Negative Urine Bilirubin Negative Negative Urine Urobilinogen Normal Negative mg/dL Urine Leukocyte Esterase Negative Negative /uL Urine RBC 2 0 - 4 /hpf Urine Microscopic WBC 2 0-5 /HPF Urine Squamous Epithelial Cells None seen <5 /hpf Urine Bacteria None seen None Seen /hpf Urine Hyaline Casts Many 0 - 2 /lpf Urine Granular Casts Many 0 /lpf Urine Mucus Few None Seen Urine Glucose Normal Normal mg/dL White Blood Count 9.8 4.4-10.8 10^3/uL Red Blood Count 3.00 L 4.0-5.20 10^6/uL Hemoglobin 9.5 L 12.2-16.2 g/dL Hematocrit 28.6 L 36.0-46.0 % Mean Corpuscular Volume 95.1 80.0-100.0 fL Mean Corpuscular Hemoglobin 31.8 28.0-32.0 pg Mean Corpuscular Hemoglobin Concent 33.4 32.0-36.0 g/dL Red Cell Distribution Width 15.1 H 11.8-14.3 % Platelet Count 353 140-450 10^3/uL Mean Platelet Volume 7.9 6.9-10.8 fL Neutrophils (%) (Auto) 67.5 37.0-80.0 % Lymphocytes (%) (Auto) 14.2 10.0-50.0 % Monocytes (%) (Auto) 17.9 H 0.0-12.0 % Eosinophils (%) (Auto) 0.1 0.0-7.0 % Basophils (%) (Auto) 0.3 0.0-2.0 % Neutrophils # (Auto) 6.6 1.6-8.6 10 ^3/uL Lymphocytes # (Auto) 1.4 0.4-5.4 10 ^3/uL Monocytes # (Auto) 1.8 H 0-1.3 10 ^3/uL Eosinophils # (Auto) 0 0-0.8 10 ^3/uL Basophils # (Auto) 0 0-0.2 10 ^3/uL Nucleated Red Blood Cells 0.0 % Sodium Level 135 L 136-145 mmol/L Potassium Level 4.7 3.5-5.1 mmol/L Chloride Level 104 98-107 mmol/L Carbon Dioxide Level 23 20-31 mmol/L Anion Gap 8 5-15 Blood Urea Nitrogen 20 9-23 mg/dL Creatinine 3.36 H 0.550-1.02 mg/dL Glomerular Filtration Rate Calc 13 >90 mL/min BUN/Creatinine Ratio 6.0 L 10.0-20.0 Serum Glucose 144 H 74-106 mg/dL Lactic Acid Level 1.0 0.4-2.0 mmol/L Calcium Level 8.7 8.7-10.4 mg/dL Troponin I High Sensitivity 14 </=34 ng/L Current Medications Medications (Trade) Dose Ordered Sig/Ashley Route Start Time Stop Time Status Last Admin Acetaminophen (Tylenol Tablet) 650 mg ONCE ONCE PO 03/16/25 05:30 03/16/25 05:31 DC 03/16/25 05:48 Sodium Chloride 500 ml @ 500 mls/hr Q1H ONCE IV 03/16/25 05:45 03/16/25 06:44 DC 03/16/25 06:16 Ceftriaxone Sodium 50 ml @ 100 mls/hr ONCE ONCE IV 03/16/25 07:15 03/16/25 07:44 DC 03/16/25 07:27 Azithromycin 250 ml @ 125 mls/hr ONCE ONCE IV 03/16/25 07:15 03/16/25 09:14 DC 03/16/25 07:27 Sodium Chloride 1,000 ml @ 1,000 mls/hr Q1H ONCE IV 03/16/25 07:15 03/16/25 08:14 DC 03/16/25 10:25 PROCEDURE(s): LHAN2 - L HAND 2V XRAY FINDINGS/IMPRESSION: : There is no evidence of acute fracture or dislocation. Soft tissues are unremarkable. Overlying artifact obscures visualization of the 4th proximal phalanx. CHEST RADIOGRAPH IMPRESSION: Increased interstitial prominence. This may represent pulmonary vascular congestion and/or viral pneumonia. Patient alert. Vitals stable. Moving all extremities. Answering questions. Possible sepsis. Complaining of left hand pain. Establish intravenous access. Was given fluids. Was given Tylenol. WBC within normal limits. Has a anemia. Blood sugar slightly elevated. Explained to the family. Continue monitoring. Time of 1ST Reevaluation: 07:30 Reevaluation 1ST: Unchanged Patient Education/Counseling: Diagnosis, Treatment, Prognosis Family Education/Counseling: Diagnosis, Treatment, Prognosis SEPSIS Sepsis Screen Date sepsis recognized/suspect: Mar 16, 2025 Time Sepsis recognized/suspect: 529 Recent Procedure: No On Antibiotic Therapy: No Respiratory Rate >20: Yes Heart Rate >90: No Temp<36 C (96.8 F) or >38.3 C: Yes SBP <90 or MAP <65 mmHG: No New Acute Mental Status Change: Yes Is the patient on CPAP, BIPAP,: No Physician Orders Sodium Chloride 0.9% (03/16/25 05:45) Vital Signs Q1HR (03/16/25 05:32) Saline Lock (03/16/25 05:32) Sheet Metal Helper (03/16/25 ) Rectal/Core Temps Only (03/16/25 05:32) Notify Md If Abnormal Vs (03/16/25 05:32) Blood Culture (03/16/25 05:32) Chest Xray 1 View (03/16/25 05:32) L Hand 2v Xray (03/16/25 06:49) Vital Signs Date Time Temp Pulse Resp B/P (MAP) Pulse Ox O2 Delivery O2 Flow Rate FiO2 03/16/25 08:00 66 03/16/25 08:00 97.9 65 15 118/45 (69) 96 97.9 03/16/25 07:00 68 15 121/42 (68) 94 03/16/25 06:58 101.5 03/16/25 06:58 101.5 101.5 03/16/25 05:48 101.9 03/16/25 05:30 Nasal Cannula* 2 28 03/16/25 05:24 101.9 101.9 03/16/25 05:20 69 03/16/25 05:12 100.8 66 22 139/47 (77) 97 100.8 03/16/25 04:47 102.1 70 16 110/63 96 102.1 Laboratory Tests Test 03/16/25 05:51 Lactic Acid Level 1.0 mmol/L (0.4-2.0) White Blood Count 9.8 10^3/uL (4.4-10.8) Medications Medications Dose Ordered Sig/Ashley Route Start Time Stop Time Status Last Admin Dose Admin Acetaminophen 650 mg ONCE ONCE PO 03/16/25 05:30 03/16/25 05:31 DC 03/16/25 05:48 Azithromycin 250 ml @ 125 mls/hr ONCE ONCE IV 03/16/25 07:15 03/16/25 09:14 DC 03/16/25 07:27 Ceftriaxone Sodium 50 ml @ 100 mls/hr ONCE ONCE IV 03/16/25 07:15 03/16/25 07:44 DC 03/16/25 07:27 Sodium Chloride 500 ml @ 500 mls/hr Q1H ONCE IV 03/16/25 05:45 03/16/25 06:44 DC 03/16/25 06:16 Sodium Chloride 1,000 ml @ 1,000 mls/hr Q1H ONCE IV 03/16/25 07:15 03/16/25 08:14 DC 03/16/25 10:25 Departure 1 Departure Time of Disposition: 07:29 Impression: Primary Impression: Sepsis, unspecified organism Qualified Codes: A41.9 - Sepsis, unspecified organism Additional Impressions: Anemia Qualified Codes: D64.9 - Anemia, unspecified Uncontrolled diabetes mellitus Qualified Codes: E13.65 - Other specified diabetes mellitus with hyperglycemia Disposition: ADMITTED INPATIENT Admit to: Med Surg Condition: Guarded Critical Care Note Critical Care Time?: Yes (90 min-critical care time only) Stability Stability form required: No Heart Score Heart Score: Heart Score Response (Comments) Value History Slightly Suspicious 0 EKG Normal 0 Age >65 2 Risk Factors >3 or Hx ASHD 2 Troponin Normal limit 0 Total 4 I personally scribed for MIGUEL ANGEL CÁRDENAS MD ([email or web address]) on 03/16/25 at 07:03. Electronically submitted by Scottie De Jesus ([email or web address]). I personally scribed for MIGUEL ANGEL CÁRDENAS MD ([email or web address]) on 03/16/25 at 10:39. Electronically submitted by Claire Cooper ([email or web address]). I personally scribed for MIGUEL ANGEL CÁRDENAS MD ([email or web address]) on 03/16/25 at 10:40. Electronically submitted by Claire Cooper ([email or web address]). MIGUEL ANGEL CÁRDENAS MD Mar 16, 2025 07:03
[2025-03-16] MEDS: AZITHROMYCIN 500MG/250ML 250 ML IV ONE (07:27)
--- NOTE | 2025-03-16 07:57 | DVH ---
CLINICAL INDICATION: pain TECHNIQUE: XY L HAND 2V XRAY Comparison: XY L FOOT 3 VIEW XRAY on DOS: 08/21/23 FINDINGS/IMPRESSION: : There is no evidence of acute fracture or dislocation. Soft tissues are unremarkable. Overlying artifact obscures visualization of the 4th proximal phalanx.
[2025-03-16 08:36] LABS: Urine Protein, UAD 1+ (Negative)
[2025-03-16] MEDS ORDERED: ONDANSETRON HCL 4 MG/2 ML VIAL IV PRN (12:45)
[2025-03-16] MEDS ORDERED: DOCUSATE SOD 100 MG CAP PO PRN (12:45)
--- NOTE | 2025-03-16 12:56 | DVHHP2 ---
History of Present Illness Reason for Visit: Generalized weakness History of Present Illness Lyubov Mark is an 89-year-old female with past medical history of hypertension, who was brought to the hospital for generalized weakness. Patient lives with her son. He brought her in stating she has not been eating or drinking well and has been becoming weaker over the last few days. On assessment the patient answers to her name, but can not tell me her name, she is also not able to move her left arm and complains of pain. The son is concerned because she has not been eating well for the last few days. The nurse states he insist on feeding her even when she does not want it. The patient is pocketing the adelaide d. When the nurse turned her to clean her up food came our of her mouth. Cardiovascular: HTN Pulmonary: COPD Endocrine: Diabetes Smoke: No ALCOHOL: none Drugs: None Lives: with Family Domestic Violence: Neg Review of Systems Constitutional: Yes: Other (decreased appetite); No: Fever, Chills, Sweats, Weakness, Malaise Eyes: No: Pain, Vision change, Conjunctivae inflammation, Eyelid inflammation, Other, Redness ENT: No: Ear pain, Ear discharge, Nose pain, Nose discharge, Nose congestion, M outh pain, Mouth swelling, Throat pain, Throat swelling, Other Respiratory: No: Cough, Dry, Shortness of breath, SOB with excertion, Wheezing, Hemoptysis, Pleuritic Pain, Sputum, Wheezing, Other Cardiovascular: No: Chest Pain, Palpitations, Orthopnea, Paroxysmal Noc. Dyspnea, Edema, Lt Headedness, Other Gastrointestinal: No: Nausea, Vomiting, Abdominal Pain, Diarrhea, Constipation, Melena, Hematochezia, Other Genitourinary: No Dysuria, No Frequency, No Incontinence, No Hematuria, No Retention, No Other Musculoskeletal: arm pain (not moving left arm); No: other, neck pain, shoulder pain, back pain, hand pain, leg pain, foot pain Skin: No: Rash, Lesions, Jaundice, Bruising, Other Neurological: Weakness, Change in speech; No: Numbness, Incoordination, Confusion, Seizures, Other Allergies: Coded Allergies: NO KNOWN ALLERGIES (Unverified , 06/29/23) Exam Vital Signs Vital Signs Date Time Temp Pulse Resp B/P (MAP) Pulse Ox O2 Delivery O2 Flow Rate FiO2 03/16/25 08:00 66 03/16/25 08:00 97.9 15 118/45 (69) 96 97.9 03/16/25 05:30 Nasal Cannula* 2 28 General Appearance: Other (Drowsy oriented x 1) HEENT: Atraumatic, PERRLA Cardiovascular: Regular rate, Normal S1, Normal S2 Abdominal: Normal bowel sounds, Soft, No tenderness Extremities: No clubbing, No cyanosis, No edema, Normal pulses, No tenderness/swelling Skin: No rashes, No breakdown, No significant lesion Neuro: Other (Difficulty moving left arm, minimal ambulation at baseline) Psych/Mental Status: Other (Oriented x 1, ) Labs/Xrays Labs Test 03/16/25 08:28 03/16/25 05:51 Range/Units Urine Color Yellow Yellow Urine Clarity Turbid H Clear Urine pH 5.5 5.0-9.0 Urine Specific [place] 1.021 1.001-1.035 Urine Protein 1+ H Negative Urine Ketones Trace Negative Urine Blood Negative Negative /uL Urine Nitrite Negative Negative Urine Bilirubin Negative Negative Urine Urobilinogen Normal Negative mg/dL Urine Leukocyte Esterase Negative Negative /uL Urine RBC 2 0 - 4 /hpf Urine Microscopic WBC 2 0-5 /HPF Urine Squamous Epithelial Cells None seen <5 /hpf Urine Bacteria None seen None Seen /hpf Urine Hyaline Casts Many 0 - 2 /lpf Urine Granular Casts Many 0 /lpf Urine Mucus Few None Seen Urine Glucose Normal Normal mg/dL White Blood Count 9.8 4.4-10.8 10^3/uL Red Blood Count 3.00 L 4.0-5.20 10^6/uL Hemoglobin 9.5 L 12.2-16.2 g/dL Hematocrit 28.6 L 36.0-46.0 % Mean Corpuscular Volume 95.1 80.0-100.0 fL Mean Corpuscular Hemoglobin 31.8 28.0-32.0 pg Mean Corpuscular Hemoglobin Concent 33.4 32.0-36.0 g/dL Red Cell Distribution Width 15.1 H 11.8-14.3 % Platelet Count 353 140-450 10^3/uL Mean Platelet Volume 7.9 6.9-10.8 fL Neutrophils (%) (Auto) 67.5 37.0-80.0 % Lymphocytes (%) (Auto) 14.2 10.0-50.0 % Monocytes (%) (Auto) 17.9 H 0.0-12.0 % Eosinophils (%) (Auto) 0.1 0.0-7.0 % Basophils (%) (Auto) 0.3 0.0-2.0 % Neutrophils # (Auto) 6.6 1.6-8.6 10 ^3/uL Lymphocytes # (Auto) 1.4 0.4-5.4 10 ^3/uL Monocytes # (Auto) 1.8 H 0-1.3 10 ^3/uL Eosinophils # (Auto) 0 0-0.8 10 ^3/uL Basophils # (Auto) 0 0-0.2 10 ^3/uL Nucleated Red Blood Cells 0.0 % Sodium Level 135 L 136-145 mmol/L Potassium Level 4.7 3.5-5.1 mmol/L Chloride Level 104 98-107 mmol/L Carbon Dioxide Level 23 20-31 mmol/L Anion Gap 8 5-15 Blood Urea Nitrogen 20 9-23 mg/dL Creatinine 3.36 H 0.550-1.02 mg/dL Glomerular Filtration Rate Calc 13 >90 mL/min BUN/Creatinine Ratio 6.0 L 10.0-20.0 Serum Glucose 144 H 74-106 mg/dL Lactic Acid Level 1.0 0.4-2.0 mmol/L Calcium Level 8.7 8.7-10.4 mg/dL Troponin I High Sensitivity 14 </=34 ng/L CHEST RADIOGRAPH FINDINGS: Lines and Tubes: None Lungs: Increased interstitial prominence. This may represent pulmonary vascular congestion and/or viral pneumonia. Pleura: No effusion.No pneumothorax. Cardiomediastinal contours: Cardiomegaly. Bones: Unremarkable IMPRESSION: Increased interstitial prominence. This may represent pulmonary vascular congestion and/or viral pneumonia. TECHNIQUE: XY L HAND 2V XRAY FINDINGS/IMPRESSION: : There is no evidence of acute fracture or dislocation. Soft tissues are unremarkable. Overlying artifact obscures visualization of the 4th proximal phalanx. SEPSIS Sepsis Screen Date sepsis recognized/suspect: Mar 16, 2025 Time Sepsis recognized/suspect: 529 Recent Procedure: No On Antibiotic Therapy: No Respiratory Rate >20: Yes Heart Rate >90: No Temp<36 C (96.8 F) or >38.3 C: Yes SBP <90 or MAP <65 mmHG: No New Acute Mental Status Change: Yes Is the patient on CPAP, BIPAP,: No Physician Orders Sodium Chloride 0.9% (03/16/25 05:45) Vital Signs Q1HR (03/16/25 05:32) Saline Lock (03/16/25 05:32) Business Instructor (03/16/25 ) Rectal/Core Temps Only (03/16/25 05:32) Notify Md If Abnormal Vs (03/16/25 05:32) Blood Culture (03/16/25 05:32) Chest Xray 1 View (03/16/25 05:32) L Hand 2v Xray (03/16/25 06:49) Ct Head Cva (03/16/25 12:36) * Swallow Request (03/16/25 12:36) Admit (03/16/25 12:36) Code Status (03/16/25 12:36) 0.9% Ns 1000 Ml (03/16/25 12:45) Hydrocodone-Acet 5/325mg Tab ([place] (03/16/25 12:45) Ondansetron Hcl (Zofran) (03/16/25 12:45) Docusate Sodium Capsule (Colace Capsule) (03/16/25 12:45) Fall Risk Precautions In Place QSHIFT (03/16/25 12:36) Complete Blood Count (03/17/25 04:00) Comprehensive Metabolic Panel (03/17/25 04:00) Npo (Nothing By Mouth) Diet (03/16/25 Lunch) Pt Request For Service (03/16/25 12:36) Condition: Serious (03/16/25 12:36) Acetaminophen Tablet (Tylenol Tablet) (03/16/25 12:45) Vital Signs Date Time Temp Pulse Resp B/P (MAP) Pulse Ox O2 Delivery O2 Flow Rate FiO2 03/16/25 08:00 66 03/16/25 08:00 97.9 65 15 118/45 (69) 96 97.9 03/16/25 07:00 68 15 121/42 (68) 94 03/16/25 06:58 101.5 03/16/25 06:58 101.5 101.5 03/16/25 05:48 101.9 03/16/25 05:30 Nasal Cannula* 2 28 03/16/25 05:24 101.9 101.9 03/16/25 05:20 69 03/16/25 05:12 100.8 66 22 139/47 (77) 97 100.8 03/16/25 04:47 102.1 70 16 110/63 96 102.1 Laboratory Tests Test 03/16/25 05:51 Lactic Acid Level 1.0 mmol/L (0.4-2.0) White Blood Count 9.8 10^3/uL (4.4-10.8) Medications Medications Dose Ordered Sig/Ashley Route Start Time Stop Time Status Last Admin Dose Admin Acetaminophen 650 mg ONCE ONCE PO 03/16/25 05:30 03/16/25 05:31 DC 03/16/25 05:48 650 MG Azithromycin 250 ml @ 125 mls/hr ONCE ONCE IV 03/16/25 07:15 03/16/25 09:14 DC 03/16/25 07:27 125 MLS/HR Ceftriaxone Sodium 50 ml @ 100 mls/hr ONCE ONCE IV 03/16/25 07:15 03/16/25 07:44 DC 03/16/25 07:27 100 MLS/HR Sodium Chloride 500 ml @ 500 mls/hr Q1H ONCE IV 03/16/25 05:45 03/16/25 06:44 DC 03/16/25 06:16 500 MLS/HR Sodium Chloride 1,000 ml @ 1,000 mls/hr Q1H ONCE IV 03/16/25 07:15 03/16/25 08:14 DC 03/16/25 10:25 1,000 MLS/HR Assessment/Plan Assessment/Plan Assessment: Acute on chronic renal failure, Anemia, ALOC, Metabolic encephalopathy, COPD, Diabetes, Hypertension, Plan: Admit to Med-Surg, CT of head, Neurology consult, Speech therapy evaluation, Physical therapy evaluation, Dietary consult, Fall risk, Supplemental oxygen as needed, IV hydration, IV antibiotics, Supplemental oxygen as needed, Breathing treatments as needed, Plan discussed with: Patient My Orders Orders - JUJU SCHULTZ MANAGER OF [employer] Procedure Category Date Status Time Ct Head Cva CT 03/16/25 Logged 12:36 * Swallow Request ST 03/16/25 Transmitted 12:36 Admit ADMIT 03/16/25 Verified 12:36 Code Status CODE 03/16/25 Verified 12:36 0.9% Ns 1000 Ml PHA 10/28/25 Verified 12:45 Hydrocodone-Acet PHA 03/16/25 Verified 5/325mg Tab ([place] 12:45 Ondansetron Hcl PHA 03/16/25 Verified (Zofran) 12:45 Docusate Sodium PHA 03/16/25 Verified Capsule (Colace 12:45 Fall Risk Precautions NEMO 03/16/[address] 12:36 Complete Blood Count LAB 03/17/25 Verified 04:00 Comprehensive LAB 03/17/25 Verified Metabolic Panel 04:00 Npo (Nothing By DIET 03/16/25 Verified Mouth) Diet Lunch Pt Request For Service PT 03/16/25 Verified 12:36 Condition: Serious NEMO 03/16/25 Verified 12:36 Acetaminophen Tablet PHA 03/16/25 Verified (Tylenol Tablet) 12:45 Date of Service: Mar 16, 2025 Billing Provider: JUJU SCHULTZ Common Visit Codes: [id number] INP/OBS CARE (HIGH) JUJU SCHULTZ Mar 16, 2025 12:56
--- NOTE | 2025-03-16 13:15 | DVH ---
EXAM: CT STROKE CTH INDICATION: Left sided weakness TECHNIQUE: CT of the head without intravenous contrast. Radiation Dose Information: CT Dose: CTDI volume is 55.23 mGy. Dose-length product is 977.93 mGy*cm The dose indicators for CT are the volume Computed Tomography (CT) Dose Index (CTDIvol) and the Dose Length Product (DLP), and are measured in units of mGy and mGy-cm, respectively. These indicators are not patient dose, but values generated from the CT scanner acquisition factors. The report includes radiation exposure data for exposures received during this examination. COMPARISON: None FINDINGS: There is no evidence of acute intracranial hemorrhage, extra-axial collection, mass effect, midline s hift, herniation or hydrocephalus. The ventricles, sulci and cisterns are age appropriate. The escobar-white differentiation is intact. Patchy periventricular and subcortical white matter hypoattenuation is nonspecific but may be related to small vessel ischemic disease. 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 The visualized paranasal sinuses and mastoid air cells are clear. The surrounding soft tissues and osseous structures are unremarkable. IMPRESSION: No acute intracranial abnormality.
[2025-03-16] MEDS: SODIUM CHLORIDE 0.9% 1,000 ML IV SCH (13:30)
[2025-03-16 15:56] VITALS: PULSE 82; RESP 17; O2SAT 96
[2025-03-16 16:37] VITALS: BP 154/67; PULSE 82; RESP 17; TEMP 99.8; O2SAT 96
[2025-03-16 16:39] VITALS: BP 154/67; PULSE 82; RESP 17; TEMP 99.8; O2SAT 96
[2025-03-16 19:50] VITALS: PULSE 90; RESP 20; O2SAT 94
[2025-03-16 21:00] VITALS: BP 154/73; PULSE 90; RESP 19; TEMP 98; O2SAT 98
--- NOTE | 2025-03-16 21:36 | DVHINCON2 ---
Date of service: Mar 16, 2025 Referring Physician Shari Reason for Consultation ALOC History of Present Illness Ms. Mark is a 89 years old right-handed female with a history of hypertension, diabetes, chronic kidney failure, COPD, glaucoma, the patient was brought to the [facility] on 03/16/2025 with a chief complaint of general weakness, altered mental status. At this time, she is easily arousable, only oriented to person, place, the history is obtained from her son, I have also reviewed the chart The patient just went through seven days antibiotics for UTI and pneumonia, and she was said to be fine by her PCP on 03/15/25. But manager of change on 03/16/2025, her son noticed the patient was confused, and her pulse ox was 91% with 3 L of oxygen (she is on home oxygen because of pneumonia). She also had tenderness to palpation in the left forearm. Temperature was 102.1 on arrival to the ER For the one year time, the patient has mild intermittent short-term memory difficulty Urinalysis, 03/16/2025: WBC: 2, urine leukocyte esterase: Negative WBC/HB/PLT/MCV, 03/16/2025: 9.8/9.5/353/95.1 BUN/CR, 03/16/2025: 20/3.36 GFR, 03/16/2025: 13 Chest x-ray 03/16/25: Increased interstitial prominence. This may represent pulmonary vascular congestion and/or viral pneumonia CT head, 03/16/25: No acute intracranial abnormality (Multiple remote lacunar infarcts throughout both basal ganglia and both anguiano radiata.) Past Medical History Hypertension, diabetes, chronic kidney failure, COPD Past Surgical History Right leg arterial bypass, right scapular sister removal Family History: Patient reports no known family medical history. Family History Hypertension, diabetes, no dementia Social History He smokes tobacco, but no history of drug or alcohol abuse Allergies: Coded Allergies: NO KNOWN ALLERGIES (Unverified , 06/29/23) Home Meds Active Scripts Acetaminophen (Acetaminophen) 500 Mg Tab, 500 MG PO Q4HP PRN, #30 TAB Prov:MILAN YEE PAC 03/03/25 Ondansetron Odt 4MG Tab (ZOFRAN PO) 4 Mg Tb, 4 MG PO Q6HP PRN, #20 TAB ODT TAB-DISSOLVE IN MOUTH, THEN SWALLOW Prov:MILAN YEE PAC 03/03/25 Sulfamethoxazole W/Trimethopri (Bactrim Ds Tablet) 1 Tab Tb, 1 TAB PO BID for 7 Days, #14 TAB Prov:MILAN YEE PAC 03/03/25 Clindamycin Hcl (Clindamycin Hcl) 300 Mg Cap, 150 MG PO TID for 10 Days, #30 CAP Prov:MIGUEL ANGEL CÁRDENAS MD 03/21/24 Cephalexin (KEFLEX CAPSULE) 250 Mg Cp, 250 MG PO QID for 10 Days, #40 BOTTLE Prov:MIGUEL ANGEL CÁRDENAS MD 03/21/24 Clindamycin Hcl (Clindamycin Hcl) 300 Mg Cap, 1 CAP PO TID for 7 Days, #21 CAP Prov:HANSEL MADDOX 08/21/23 Clindamycin Hcl (Clindamycin Hcl) 300 Mg Cap, 450 MG PO TID for 7 Days, #32 CAP Prov:LINWOOD SCOTT PAC 06/30/23 Current Medications Current Medications Medications (Trade) Dose Ordered Sig/Ashley Route PRN Reason Start Time Stop Time Status Last Admin Sodium Chloride 1,000 ml @ 75 mls/hr [id number] IV 03/16/25 12:45 03/16/25 13:30 Acetaminophen/ Hydrocodone Bitart ([place] 5/325MG Tab) 1 tab Q4HP PRN PO MODERATE PAIN (4-6 PAIN SCALE) 03/16/25 12:45 Ondansetron HCl (Zofran) 4 mg Q4HP PRN IV NAUSEA / VOMITING 03/16/25 12:45 Docusate Sodium (Colace Capsule) 100 mg BIDPRN PRN PO FOR CONSTIPATION 03/16/25 12:45 Acetaminophen (Tylenol Tablet) 650 mg Q6HP PRN PO PAIN SCALE 1-3 OR TEMP>100.4 03/16/25 12:45 Ceftriaxone Sodium 50 ml @ 100 mls/hr DAILY@09 IV 03/17/25 09:00 Ipratropium [place] (Atrovent Medneb) 0.5 mg Q6HPRN PRN NEB SHORTNESS OF BREATH 03/16/25 18:00 Albuterol (Ventolin Medneb) 2.5 mg Q6HPRN PRN NEB SHORTNESS OF BREATH 03/16/25 18:00 Review of Systems As above, the other systems are negative Vital Signs Vital Signs Date Time Temp Pulse Resp B/P (MAP) Pulse Ox O2 Delivery O2 Flow Rate FiO2 03/16/25 16:39 99.8 82 17 154/67 (96) 96 99.8 03/16/25 15:56 Nasal Cannula* 2 28 Physical Exam GENERAL EXAM: General: the patient is well developed and nourished. No acute distress. HEENT: Normocephalic, neck is supple, no carotid bruits. No mass. RESPIRATORY: Normal respiratory effort with symmetrical lung expansion. Lungs clear to auscultation. CARDIOVASCULAR: Regular rate and rhythm with no murmurs. S1, S2. ABDOMEN: Soft, nontender, normal bowel sound MUSCULOSKELETAL EXAM: Erythema and severe tenderness to palpation in the left forearm, elbow NEUROLOGICAL: MENTAL STATUS: Awake and alert. Oriented to person, place, SPEECH, LANGUAGE, HIGHER CORTICAL FUNCTION: no aphasia or dysathria. CRANIAL NERVES: #2: Intact visual duque to confrontation. The optic discs were sharp. #3,4,6: Pupils are equal, round and reactive. EOMs full and conjugate. #5: Facial sensation intact in all three divisions bilaterally. Mandibular strength intact. #7: Facial muscles symmetrical and strength intact. #8: Hearing grossly normal to voice. #9,10: Uvula and soft palate rise in the midline. Swallow and voice are normal. #11: Trapezius and sternomastoid strength intact bilaterally. #12: Tongue midline. No fasciculations or atrophy. SENSATION: Sensation to touch and pinprick is normal. MOTOR: Normal tone in the upper and lower extremity. Normal muscle bulk. No fasciculations. No abnormal movements or posturing. He moves the arms and legs a little bit REFLEXES: Deep tendon reflexes are symmetrical. No pathological reflexes. CEREBELLAR/COORDINATION: Deferred GAIT/STATION: deferred. Labs/Diagnostic Data Labs Test 03/16/25 08:28 03/16/25 05:51 Range/Units Urine Color Yellow Yellow Urine Clarity Turbid H Clear Urine pH 5.5 5.0-9.0 Urine Specific [place] 1.021 1.001-1.035 Urine Protein 1+ H Negative Urine Ketones Trace Negative Urine Blood Negative Negative /uL Urine Nitrite Negative Negative Urine Bilirubin Negative Negative Urine Urobilinogen Normal Negative mg/dL Urine Leukocyte Esterase Negative Negative /uL Urine RBC 2 0 - 4 /hpf Urine Microscopic WBC 2 0-5 /HPF Urine Squamous Epithelial Cells None seen <5 /hpf Urine Bacteria None seen None Seen /hpf Urine Hyaline Casts Many 0 - 2 /lpf Urine Granular Casts Many 0 /lpf Urine Mucus Few None Seen Urine Glucose Normal Normal mg/dL White Blood Count 9.8 4.4-10.8 10^3/uL Red Blood Count 3.00 L 4.0-5.20 10^6/uL Hemoglobin 9.5 L 12.2-16.2 g/dL Hematocrit 28.6 L 36.0-46.0 % Mean Corpuscular Volume 95.1 80.0-100.0 fL Mean Corpuscular Hemoglobin 31.8 28.0-32.0 pg Mean Corpuscular Hemoglobin Concent 33.4 32.0-36.0 g/dL Red Cell Distribution Width 15.1 H 11.8-14.3 % Platelet Count 353 140-450 10^3/uL Mean Platelet Volume 7.9 6.9-10.8 fL Neutrophils (%) (Auto) 67.5 37.0-80.0 % Lymphocytes (%) (Auto) 14.2 10.0-50.0 % Monocytes (%) (Auto) 17.9 H 0.0-12.0 % Eosinophils (%) (Auto) 0.1 0.0-7.0 % Basophils (%) (Auto) 0.3 0.0-2.0 % Neutrophils # (Auto) 6.6 1.6-8.6 10 ^3/uL Lymphocytes # (Auto) 1.4 0.4-5.4 10 ^3/uL Monocytes # (Auto) 1.8 H 0-1.3 10 ^3/uL Eosinophils # (Auto) 0 0-0.8 10 ^3/uL Basophils # (Auto) 0 0-0.2 10 ^3/uL Nucleated Red Blood Cells 0.0 % Sodium Level 135 L 136-145 mmol/L Potassium Level 4.7 3.5-5.1 mmol/L Chloride Level 104 98-107 mmol/L Carbon Dioxide Level 23 20-31 mmol/L Anion Gap 8 5-15 Blood Urea Nitrogen 20 9-23 mg/dL Creatinine 3.36 H 0.550-1.02 mg/dL Glomerular Filtration Rate Calc 13 >90 mL/min BUN/Creatinine Ratio 6.0 L 10.0-20.0 Serum Glucose 144 H 74-106 mg/dL Lactic Acid Level 1.0 0.4-2.0 mmol/L Calcium Level 8.7 8.7-10.4 mg/dL Troponin I High Sensitivity 14 </=34 ng/L Assessment Altered mental status Metabolic encephalopathy Hypoxic encephalopathy Acute respiratory failure Fever/left forearm cellulitis/sepsis Cognitive dysfunction Multiple strokes Plan/Recommendation Monitoring Supportive treatment Blood culture Lipid profile Carotid Doppler VERONIKA MRI left forearm MRI head Telemetry IV antibiotics Oxygen Aspirin 81 mg daily Lipitor 20 mg daily More recommendation per clinical course More recommendation per clinical course This medical document was created using an electronic medical record system with eMinor computerized dictation system. Although this document has been carefully reviewed, there may still be some phonetic and typographical errors. These areas are purely typographical due to imperfections of the software programs, an d do not reflect any compromise in the patient's medical care. Plan discussed with: James Carmona QUANWEI MD Mar 16, 2025 21:36
[2025-03-16] MEDS: ATORVASTATIN 20 MG TAB PO SCH (22:00)
[2025-03-16] MEDS ORDERED: LORazepam 2MG/ML-1ML VIAL IV PRN (22:00)
[2025-03-16 22:41] LABS: Triglycerides 89 mg/dL (< 150)
[2025-03-16 22:43] LABS: Cholesterol 115 mg/dL (< 200); HDL Cholesterol 35 mg/dL (40-59)
[2025-03-17] VITALS (20 sets, daily range): BP systolic 109–178; BP diastolic 55–96; PULSE 83–167; RESP 16–26; TEMP 97.9–98.6; O2SAT 84–99
[2025-03-17] MEDS: ADENOSINE 6 MG/2 ML INJ IV ONE (00:48)
[2025-03-17] MEDS: dilTIAZem 25 MG/5 ML VIAL IV ONE ×2 (00:57→01:30)
--- NOTE | 2025-03-17 02:25 | DVH ---
Carotid Duplex Clinical History: cva Comparison: None Technique: Duplex Doppler evaluation of the extracranial carotid and vertebral arteries including color Doppler and spectral/pulsed waveform analysis was performed. Findings: RIGHT SIDE: The peak systolic velocities are 111 cm/s in the CCA, 167 cm/s in the ICA. The ICA/CCA ratio is 1.5. The external carotid artery is patent with peak systolic velocity of 263 cm/s proximally. There is appropriate antegrade flow in the right vertebral artery. Diffuse calcified atherosclerosis. Spectral broadening is present. LEFT SIDE: The peak systolic velocities are 89 cm/s in the CCA, 338 cm/s in the ICA. The ICA/CCA ratio is 3.8. The external carotid artery is patent with peak systolic velocity of 167 cm/s proximally. There is appropriate antegrade flow in the left vertebral artery. Diffuse calcified atherosclerosis. Spectral broadening is present. IMPRESSION: 1. Greater than 50%/70% stenosis of the left ICA. 2. Between 50-69% stenosis of the right ICA. Reference: Radiology 2003; 229:340-346 Normal ICA PSV is <125 cm/sec and no plaque or intimal thickening is visible sonographically addition al criteria include ICA/CCA PSV ratio <2.0 and ICA EDV <40 cm/sec <50% ICA stenosis ICA PSV is <125 cm/sec and plaque or intimal thickening is visible sonographically additional criteria include ICA/CCA PSV ratio <2.0 and ICA EDV <40 cm/sec 50-69% ICA stenosis ICA PSV is 125-230 cm/sec and plaque is visible sonographically additional criter ia include ICA/CCA PSV ratio of 2.0-4.0 and ICA EDV of 40-100 cm/sec 70% ICA stenosis but less than near occlusion ICA PSV is >230 cm/sec and visible plaque and luminal narrowing are seen at escobar-scale and color Doppler ultrasound (the higher the Doppler parameters lie above the threshold of 230 cm/sec, the greater the likelihood of severe disease) additional criteria include ICA/CCA PSV ratio >4 and ICA EDV >100 cm/sec
[2025-03-17 02:34] LABS: Hematocrit 29.1 % (36.0-46.0); Hemoglobin 10.2 g/dL (12.2-16.2); Mean Corpuscular Hemoglobin 32.5 pg (28.0-32.0); Mean Corpuscular Volume 93.0 fL (80.0-100.0); Nucleated Red Blood Cells % 0.1 %
[2025-03-17 02:50] LABS: Alanine Aminotransferase 21 U/L (7-40); Albumin 3.4 g/dL (3.2-4.8); Alkaline Phosphatase 69 U/L (46-116); Anion Gap 12 (5-15); BUN/Creatinine Ratio 11.0 (10.0-20.0); Blood Urea Nitrogen 21 mg/dL (9-23); Chloride 106 mmol/L (98-107); Magnesium 1.9 mg/dL (1.6-2.6); Potassium 4.3 mmol/L (3.5-5.1); Sodium 136 mmol/L (136-145); Total Protein 6.6 g/dL (5.7-8.2)
[2025-03-17 02:51] LABS: Bilirubin, Total 0.4 mg/dL (0.2-1.0)
[2025-03-17 02:52] LABS: Calcium 8.5 mg/dL (8.7-10.4); Carbon Dioxide 18 mmol/L (20-31); Glucose 144 mg/dL (74-106)
[2025-03-17] MEDS: MIDAZOLAM HCL 2MG/2ML 2ml VIAL (1mg/ml) IV ONE ×2 (10:00→13:22)
[2025-03-17] MEDS: fentaNYL CITRATE 100 MCG/2 ML VL IV ONE (10:00)
[2025-03-17] MEDS: LIDOCAINE VISCOUS 2% 15ML UD PO ONE (10:00)
--- NOTE | 2025-03-17 10:01 | DVHINCON2 ---
Date Seen: Mar 17, 2025 Referring Physician MD Shadi Reason for Consultation VERONIKA: multiple strokes History of Present Illness This is an 89-year-old female who presented to the emergency room via EMS with a chief complaint of generalized weakness. The patient is somewhat a poor historian, information obtained from records which indicate the patient presented with generalized weakness associated with confusion and left-sided weakness. The patient has been diagnosed with multiple strokes by Neurology team. Cardiology consulted for a transesophageal echocardiogram to rule out cardioembolic source. Denies previous history of congenital heart disease or tachyarrhythmias. Significant medical history includes hypertension, COPD, diabetes mellitus, anemia, chronic kidney disease, and multiple strokes. Past Medical History Past medical history reviewed. No other significant than mentioned above. Past Surgical History Past surgical history reviewed. No other significant than mentioned above. Family History: Patient reports no known family medical history. Family History Family history reviewed. Social History Denies the use of illicit drugs, alcohol, or tobacco use. Allergies: Coded Allergies: NO KNOWN ALLERGIES (Unverified , 06/29/23) Home Meds Active Scripts Acetaminophen (Acetaminophen) 500 Mg Tab, 500 MG PO Q4HP PRN, #30 TAB Prov:MILAN YEE 03/03/25 Ondansetron Odt 4MG Tab (ZOFRAN PO) 4 Mg Tb, 4 MG PO Q6HP PRN, #20 TAB ODT TAB-DISSOLVE IN MOUTH, THEN SWALLOW Prov:MILAN YEE 03/03/25 Sulfamethoxazole W/Trimethopri (Bactrim Ds Tablet) 1 Tab Tb, 1 TAB PO BID for 7 Days, #14 TAB Prov:MILAN YEE 03/03/25 Clindamycin Hcl (Clindamycin Hcl) 300 Mg Cap, 150 MG PO TID for 10 Days, #30 CAP Prov:MIGUEL ANGEL CÁRDENAS MD 03/21/24 Cephalexin (KEFLEX CAPSULE) 250 Mg Cp, 250 MG PO QID for 10 Days, #40 BOTTLE Prov:MIGUEL ANGEL CÁRDENAS MD 03/21/24 Clindamycin Hcl (Clindamycin Hcl) 300 Mg Cap, 1 CAP PO TID for 7 Days, #21 CAP Prov:HANSEL MADDOX 08/21/23 Clindamycin Hcl (Clindamycin Hcl) 300 Mg Cap, 450 MG PO TID for 7 Days, #32 CAP Prov:LINWOOD SCOTT PAC 06/30/23 Home Meds Home medications reviewed. Current Medications Current Medications Medications (Trade) Dose Ordered Sig/Ashley Route PRN Reason Start Time Stop Time Status Last Admin Sodium Chloride 1,000 ml @ 75 mls/hr [id number] IV 03/16/25 12:45 03/17/25 06:49 Acetaminophen/ Hydrocodone Bitart ([place] 5/325MG Tab) 1 tab Q4HP PRN PO MODERATE PAIN (4-6 PAIN SCALE) 03/16/25 12:45 Ondansetron HCl (Zofran) 4 mg Q4HP PRN IV NAUSEA / VOMITING 03/16/25 12:45 Docusate Sodium (Colace Capsule) 100 mg BIDPRN PRN PO FOR CONSTIPATION 03/16/25 12:45 Acetaminophen (Tylenol Tablet) 650 mg Q6HP PRN PO PAIN SCALE 1-3 OR TEMP>100.4 03/16/25 12:45 Ceftriaxone Sodium 50 ml @ 100 mls/hr DAILY@09 IV 03/17/25 09:00 Ipratropium [place] (Atrovent Medneb) 0.5 mg Q6HPRN PRN NEB SHORTNESS OF BREATH 03/16/25 18:00 Albuterol (Ventolin Medneb) 2.5 mg Q6HPRN PRN NEB SHORTNESS OF BREATH 03/16/25 18:00 Lorazepam (Ativan Inj) 1 mg ONCE PRN IV MRI 03/16/25 22:00 Aspirin 81 mg DAILY PO 03/17/25 10:00 Atorvastatin Calcium (Lipitor) 20 mg HS PO 03/16/25 22:00 Review of Systems Constitutional: Generalized weakness Ears, Nose, & Throat: No symptom reported Eyes: No symptom reported Neurological: ALOC Pulmonary/Respiratory: No symptom reported Cardiovascular: No symptom reported Gastrointestinal: No symptom reported Genitourinary: No symptom reported Musculoskeletal: No symptom reported Skin: No symptom reported Psychiatric: No symptom reported Endocrine: No symptom reported Hemotologic/Lymphatic: No symptom reported Vital Signs Vital Signs Date Time Temp Pulse Resp B/P (MAP) Pulse Ox O2 Delivery O2 Flow Rate FiO2 03/17/25 09:25 97 Nasal Cannula 2.0 03/17/25 09:25 28 03/17/25 09:00 98.6 95 16 153/66 (95) 98.6 Physical Exam General Appearance: Cooperative. Well developed. Well nourished. In no acute distress Head Exam: Normal inspection Neck Exam: Normal inspection. Non-tender. Normal alignment Pulmonary/Respiratory: Chest non-tender. Clear bilateral breath sounds Cardiovascular/Chest: Regular rate and rhythm. S1, S2. NSR. No murmurs. No JVD. Peripheral Pulses: 2+ Radial (R). 2+ Radial (L). 2+ Pedal (R). 2+ Pedal (L) Abdominal Exam: Normal bowel sounds. Soft. Ankle Exam: Negative ankle edema Lower extremities: Negative lower extremity edema Neuro/Mental Status: A&O x3. Coherent poor historian Thoughts/Psych: Normal thought pattern. Appropriate mood and affect. Good judgement and insight Appearance: In no acute distress Skin Exam: Normal inspection. Normal color. Warm. Dry Labs/Diagnostic Data Labs Test 03/17/25 03:40 03/17/25 02:23 03/16/25 08:28 03/16/25 05:51 Range/Units Troponin I High Sensitivity 38 *H </=34 ng/L White Blood Count 10.5 4.4-10.8 10^3/uL Red Blood Count 3.13 L 4.0-5.20 10^6/uL Hemoglobin 10.2 L 12.2-16.2 g/dL Hematocrit 29.1 L 36.0-46.0 % Mean Corpuscular Volume 93.0 80.0-100.0 fL Mean Corpuscular Hemoglobin 32.5 H 28.0-32.0 pg Mean Corpuscular Hemoglobin Concent 35.0 32.0-36.0 g/dL Red Cell Distribution Width 14.7 H 11.8-14.3 % Platelet Count 368 140-450 10^3/uL Mean Platelet Volume 7.8 6.9-10.8 fL Neutrophils (%) (Auto) 76.7 37.0-80.0 % Lymphocytes (%) (Auto) 7.6 L 10.0-50.0 % Monocytes (%) (Auto) 15.4 H 0.0-12.0 % Eosinophils (%) (Auto) 0.0 0.0-7.0 % Basophils (%) (Auto) 0.3 0.0-2.0 % Neutrophils # (Auto) 8.0 1.6-8.6 10 ^3/uL Lymphocytes # (Auto) 0.8 0.4-5.4 10 ^3/uL Monocytes # (Auto) 1.6 H 0-1.3 10 ^3/uL Eosinophils # (Auto) 0 0-0.8 10 ^3/uL Basophils # (Auto) 0 0-0.2 10 ^3/uL Nucleated Red Blood Cells 0.1 % Sodium Level 136 136-145 mmol/L Potassium Level 4.3 3.5-5.1 mmol/L Chloride Level 106 98-107 mmol/L Carbon Dioxide Level 18 L 20-31 mmol/L Anion Gap 12 5-15 Blood Urea Nitrogen 21 9-23 mg/dL Creatinine 1.91 #H 0.550-1.02 mg/dL Glomerular Filtration Rate Calc 25 >90 mL/min BUN/Creatinine Ratio 11.0 10.0-20.0 Serum Glucose 144 H 74-106 mg/dL Calcium Level 8.5 L 8.7-10.4 mg/dL Magnesium Level 1.9 1.6-2.6 mg/dL Total Bilirubin 0.4 0.2-1.0 mg/dL Aspartate Amino Transferase (AST) 96 H 13-40 U/L Alanine Aminotransferase (ALT) 21 7-40 U/L Alkaline Phosphatase 69 46-116 U/L Total Protein 6.6 5.7-8.2 g/dL Albumin 3.4 3.2-4.8 g/dL Urine Color Yellow Yellow Urine Clarity Turbid H Clear Urine pH 5.5 5.0-9.0 Urine Specific [place] 1.021 1.001-1.035 Urine Protein 1+ H Negative Urine Ketones Trace Negative Urine Blood Negative Negative /uL Urine Nitrite Negative Negative Urine Bilirubin Negative Negative Urine Urobilinogen Normal Negative mg/dL Urine Leukocyte Esterase Negative Negative /uL Urine RBC 2 0 - 4 /hpf Urine Microscopic WBC 2 0-5 /HPF Urine Squamous Epithelial Cells None seen <5 /hpf Urine Bacteria None seen None Seen /hpf Urine Hyaline Casts Many 0 - 2 /lpf Urine Granular Casts Many 0 /lpf Urine Mucus Few None Seen Urine Glucose Normal Normal mg/dL Lactic Acid Level 1.0 0.4-2.0 mmol/L Triglycerides Level 89 < 150 mg/dL Cholesterol Level 115 < 200 mg/dL LDL Cholesterol 56 < 100 mg/dL HDL Cholesterol 35 L 40-59 mg/dL Microbiology Date/Time Source Procedure Growth Status 03/16/25 05:51 Blood Blood Culture - Preliminary NO GROWTH AFTER 24 HOURS OF INCUBATION. Resulted Assessment Multiple strokes rule out cardioembolic source NSTEMI, likely type II secondary to above Hypertension Dyslipidemia Diabetes mellitus type 2 NILE on CKD COPD Anemia Plan/Recommendation (Dr. Downey) * Twelve lead electrocardiogram: Normal sinus rhythm with PAC * quality assurance monitor reviewed: Sinus tachycardia events with no tachyarrhythmias present * Bilateral carotid duplex: Greater than 50-70% stenosis of the left ICA and in between 50-69% stenosis of the right ICA Plan: Scheduled for a transesophageal echocardiogram at first available. All risks and benefits of the procedure were discussed with the patient and son over the phone (Esteban Mark) who agreed to proceed with intervention. All quest ions answered. Consider a head/neck CT with contrast with optimal renal function in order to rule out severe carotid stenosis and need for carotid endarterectomy vs carotid artery stenting. The patient can also benefit from an outpatient event monitor to rule out tachyarrhythmias. Continue single- antiplatelet therapy and lipid-lowering agent. Consider nephrology consultation. In the setting of an unremarkable VERONIKA, there is no further cardiac work-up indicated at this time. Please refer patient back if severe ICA stenosis present on head/neck CT. Thank you for allowing us to participate in this patient's care. Please call if you have any questions or concerns. This medical document was created using an electronic medical record system with voice recognition software and computerized dictation system. Although this document has been carefully reviewed, there might still be some phonetic and typographical errors. Occasional wrong-word or ``sound-alike substitutions may have occurred due to the inherent limitations of voice recognition software. These areas are purely typographical due to imperfections of the software programs and do not reflect any compromise in the patient's medical care. Please read the chart carefully and recognize, using context, where these substitutions have occurred. Plan discussed with: Patient, Son, Other NYHA Physical activity limitations: NA Date of Service: Mar 17, 2025 Billing Provider: JOBY MARISCAL Cardiology Common Codes: 45012-[id number] INP/OBS CARE (High) JOBY MARISCAL Mar 17, 2025 10:01
--- NOTE | 2025-03-17 12:19 | DVHPN2 ---
Changes from previous H/P or p: No Changes Eyes: No Pain, No Vision change, No Conjunctivae inflammation, No Eyelid inflammation, No Other, No Redness ENT: No Ear pain, No Ear discharge, No Nose pain, No Nose discharge, No Nose congestion, No Mouth pain, No Mouth swelling, No Throat pain, No Throat swelling, No Other Cardiovascular: No Chest Pain, No Palpitations, No Orthopnea, No Paroxysmal Noc. Dyspnea, No Edema, No Lt Headedness, No Other Respiratory: No Cough, No Dry, No Shortness of breath, No SOB with excertion, No Wheezing, No Hemoptysis, No Pleuritic Pain, No Sputum, No Other Gastrointestinal: No Nausea, No Vomiting, No Abdominal Pain, No Diarrhea, No Constipation, No Melena, No Hematochezia, No Other Genitourinary: No Dysuria, No Frequency, No Incontinence, No Hematuria, No Retention, No Other Musculoskeletal: No other, No neck pain, No shoulder pain; arm pain (not moving left arm); No back pain, No hand pain, No leg pain, No foot pain Skin: No Rash, No Lesions, No Jaundice, No Bruising, No Other Objective Vitals Vital Signs Date Time Temp Pulse Resp B/P (MAP) Pulse Ox O2 Delivery O2 Flow Rate FiO2 03/17/25 09:25 97 Nasal Cannula 2.0 03/17/25 09:25 28 03/17/25 09:00 98.6 95 16 153/66 (95) 98.6 Intake/Output Intake and Output 03/17/25 07:00 Intake Total 1800 ml Output Total 904 ml Balance 896 ml Intake Oral 0 ml IV Total 1800 ml Output Urine Total 900 ml Stool Total 4 ml Medications Current Medications Medications Dose Ordered Sig/Ashley Route Start Time Stop Time Status Last Admin Dose Admin Sodium Chloride 1,000 ml @ 75 mls/hr [id number] IV 03/16/25 12:45 03/17/25 06:49 75 MLS/HR Acetaminophen/ Hydrocodone Bitart 1 tab Q4HP PRN PO 03/16/25 12:45 Ondansetron HCl 4 mg Q4HP PRN IV 03/16/25 12:45 Docusate Sodium 100 mg BIDPRN PRN PO 03/16/25 12:45 Acetaminophen 650 mg Q6HP PRN PO 03/16/25 12:45 Ceftriaxone Sodium 50 ml @ 100 mls/hr DAILY@09 IV 03/17/25 09:00 Ipratropium [place] 0.5 mg Q6HPRN PRN NEB 03/16/25 18:00 Albuterol 2.5 mg Q6HPRN PRN NEB 03/16/25 18:00 Lorazepam 1 mg ONCE PRN IV 03/16/25 22:00 Aspirin 81 mg DAILY PO 03/17/25 10:00 03/17/25 13:00 Atorvastatin Calcium 40 mg HS PO 03/17/25 22:00 Clopidogrel Bisulfate 75 mg DAILY PO 03/18/25 10:00 Laboratory Results Laboratory Tests 03/17/25 02:23 Chemistry Test 03/17/25 02:23 Albumin 3.4 g/dL (3.2-4.8) Calcium Level 8.5 mg/dL (8.7-10.4) L Magnesium Level 1.9 mg/dL (1.6-2.6) Total Protein 6.6 g/dL (5.7-8.2) LFT Test 03/17/25 02:23 Alanine Aminotransferase (ALT) 21 U/L (7-40) Alkaline Phosphatase 69 U/L (46-116) Aspartate Amino Transferase (AST) 96 U/L (13-40) H Total Bilirubin 0.4 mg/dL (0.2-1.0) HgA1c, TSH Test 03/17/25 02:23 03/17/25 09:32 Hemoglobin A1c 6.4 % A1C (<5.7) H Thyroid Stimulating Hormone (TSH) 0.61 uIU/mL (0.55-4.78) Urinalysis Test 03/16/25 08:28 Urine Color Yellow (Yellow) Urine Clarity Turbid (Clear) H Urine pH 5.5 (5.0-9.0) Urine Specific [place] 1.021 (1.001-1.035) Urine Protein 1+ (Negative) H Urine Ketones Trace (Negative) Urine Blood Negative /uL (Negative) Urine Nitrite Negative (Negative) Urine Bilirubin Negative (Negative) Urine Urobilinogen Normal mg/dL (Negative) Urine Leukocyte Esterase Negative /uL (Negative) Urine RBC 2 /hpf (0 - 4) Urine Microscopic WBC 2 /HPF (0-5) Urine Squamous Epithelial Cells None seen /hpf (<5) Urine Bacteria None seen /hpf (None Seen) Urine Hyaline Casts Many /lpf (0 - 2) Urine Granular Casts Many /lpf (0) Urine Mucus Few (None Seen) Urine Glucose Normal mg/dL (Normal) Microbiology Microbiology Date/Time Source Procedure Growth Status 03/16/25 05:51 Blood Blood Culture - Preliminary NO GROWTH AFTER 24 HOURS OF INCUBATION. Resulted Labs and/or images reviewed: Labs reviewed by me, Image(s) reviewed by me Assessment/Plan Assessment/Plan Multiple strokes rule out cardioembolic source VERONIKA pending, cardiology consult by Dr. Downey appreciated NSTEMI, likely type II secondary to above Hypertension Dyslipidemia Diabetes mellitus type 2 NILE on CKD COPD Anemia Patient is hospice revoked Patient is full code Time spent 70 minutes Advanced care planning time 20 mts Plan discussed with: Patient Date of Service: Mar 17, 2025 Billing Provider: NATALIA NOVAK MD Common Visit Codes: [id number] CARE 30-74 MIN NATALIA NOVAK MD Mar 17, 2025 12:19
[2025-03-17] MEDS: MIDAZOLAM HCL 2MG/2ML 2ml VIAL (1mg/ml) ONE (12:26)
[2025-03-17] MEDS ORDERED: CLON0.2T PO (12:47)
[2025-03-17] MEDS ORDERED: OME20GT GT (12:47)
[2025-03-17] MEDS ORDERED: METO-158 PO (12:47)
[2025-03-17] MEDS ORDERED: AMLO1TAB23 PO (12:47)
[2025-03-17] MEDS ORDERED: GABA-1250 PO (12:48)
[2025-03-17] MEDS ORDERED: CLOP75TA70 PO (12:48)
[2025-03-17] MEDS ORDERED: HYDR25TA4 PO (12:48)
[2025-03-17] MEDS ORDERED: LISI20TA56 PO (12:48)
[2025-03-17] MEDS ORDERED: SEVE800T8 PO (12:48)
[2025-03-17] MEDS ORDERED: ADENOSINE 6 MG/2 ML INJ IV ONE (13:31)
--- NOTE | 2025-03-17 15:16 | DVH ---
PROCEDURE: MRI BRAIN HEAD WO CONTRAST Indication: CVA COMPARISON: None TECHNIQUE: Multiplanar multisequence images of the brain are obtained. FINDINGS: There is no abnormal diffusion restriction. There are [id number]-[id number] periventricular and subcortica l white matter T2 and FLAIR hyperintense changes. Old bilateral basal ganglia lacunar infarcts, right -[id number]. Mild global cerebral volume loss. There is no intracranial hemorrhage. No extra-a xial fluid collection, mass effect or midline shift. The ventricles are midline and normal in size. T he cisterns are patent. Normal intracranial flow voids are preserved. No abnormal susceptibility sign al. Right maxillary sinus disease. Tiny bilateral mastoid effusions The visualized orbits are unremarkab le. IMPRESSION: No acute cerebrovascular ischemia. Mild chronic microvascular ischemic changes. Mild global cerebral volume loss.
[2025-03-17] MEDS: hydrALAZINE HCL 20 MG/ML VL IV ONE (16:45)
--- NOTE | 2025-03-17 18:43 | DVHOP2 ---
Operative Report - 2 Report Details Date: 03/17/25 Preop Diagnosis: CVA Postop Diagnosis: CVA Surgeon: Esau Downey MD Anesthesiologist: Conscious sedation Anesthesia: Mac, Local Consent: The patient was informed of the risks and benefits of the procedure. These include but are not limited to complications of anesthesia, postoperative infection, incomplete relief of symptoms, recurrence of symptoms, damage to blood vessels, nerves and tendons, deep venous thrombosis, pulmonary embolism and possible need for repeat surgery in the future. Complications: No complications Findings: Normal transesophageal echocardiogram Indications for Surgery: CVA Name of Procedure Performed Transesophageal echocardiogram Procedure Details Procedure Details: Prior full informed consent obtained the patient was prepped and draped in usual fashion. Lidocaine gargle was given to patient prior to transesophageal echocardiogram. Conscious sedation given as well. Patient was placed in left lateral and semi-Medrano position. Cardiac monitoring and oxygen saturations were monitored throughout. A transesophageal probe was passed without difficulty. Standard views obtained. Conclusions: Technically good study. Sinus rhythm. Normal chamber sizes. Mild concentric LVH. Valves appear to be structurally normal. Mild thickening of the right coronary cusp. No stenosis present. The mitral and tricuspid are within normal limits. The pulmonic is normal. Left ventricular systolic function is preserved at 65% with normal RV function. There is mild TR. No significant aortic or mitral insufficiency. No pulmonic insufficiency. No pericardial effusion masses or vegetations discernible. A bubble study performed showing no crossover into the left chambers. No evidence for atrial septal defect. No ventricular septal defect and/or other pathology. No evidence for endocarditis or vegetations. Condition Guarded Disposition Still a Patient Date of Service: Mar 17, 2025 Billing Provider: ESAU DOWNEY Sr., MD Cardiology Common Codes: [id number] INP/OBS CARE (High) Cardiology Procedure Codes: 06706-PKE W/IMG DOC INCL PROB ACQ (Bubble study performed) ESAU DOWNEY Sr., MD Mar 17, 2025 18:43
[2025-03-17] MEDS: ATORVASTATIN 20 MG TAB PO SCH (21:41)
[2025-03-17] MEDS: LABETALOL HCL 20 MG/4 ML VL IV ONE (22:52)
--- NOTE | 2025-03-17 23:26 | ECG ---
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
--- NOTE | 2025-03-17 23:26 | ECG ---
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
[2025-03-18] VITALS (12 sets, daily range): BP systolic 155–187; BP diastolic 55–79; PULSE 91–109; RESP 18–21; TEMP 97.2–99; O2SAT 93–100
[2025-03-18] MEDS: hydrALAZINE HCL 20 MG/ML VL IV ONE ×2 (01:23→07:44)
--- NOTE | 2025-03-18 08:07 | DVHPN2 ---
Reviewed: Care Plan Changes from previous H/P or p: No Changes Eyes: No Pain, No Vision change, No Conjunctivae inflammation, No Eyelid inflammation, No Other, No Redness ENT: No Ear pain, No Ear discharge, No Nose pain, No Nose discharge, No Nose congestion, No Mouth pain, No Mouth swelling, No Throat pain, No Throat swelling, No Other Cardiovascular: No Chest Pain, No Palpitations, No Orthopnea, No Paroxysmal Noc. Dyspnea, No Edema, No Lt Headedness, No Other Respiratory: No Cough, No Dry, No Shortness of breath, No SOB with excertion, No Wheezing, No Hemoptysis, No Pleuritic Pain, No Sputum, No Other Gastrointestinal: No Nausea, No Vomiting, No Abdominal Pain, No Diarrhea, No Constipation, No Melena, No Hematochezia, No Other Genitourinary: No Dysuria, No Frequency, No Incontinence, No Hematuria, No Retention, No Other Musculoskeletal: No other, No neck pain, No shoulder pain; arm pain (not moving left arm); No back pain, No hand pain, No leg pain, No foot pain Skin: No Rash, No Lesions, No Jaundice, No Bruising, No Other Objective Vitals Vital Signs Date Time Temp Pulse Resp B/P (MAP) Pulse Ox O2 Delivery O2 Flow Rate FiO2 03/18/25 07:44 175/73 03/18/25 05:00 98.2 105 20 96 98.2 03/17/25 20:00 Nasal Cannula* 2 28 Intake/Output Intake and Output 03/18/25 07:00 Intake Total 0 ml Output Total 1329 ml Balance -1329 ml Intake Oral 0 ml Output Urine Total 1325 ml Stool Total 4 ml # Bowel Movements 1 Medications Current Medications Medications Dose Ordered Sig/Ashley Route Start Time Stop Time Status Last Admin Dose Admin Sodium Chloride 1,000 ml @ 75 mls/hr [id number] IV 03/16/25 12:45 03/18/25 05:37 75 MLS/HR Acetaminophen/ Hydrocodone Bitart 1 tab Q4HP PRN PO 03/16/25 12:45 Ondansetron HCl 4 mg Q4HP PRN IV 03/16/25 12:45 Docusate Sodium 100 mg BIDPRN PRN PO 03/16/25 12:45 Acetaminophen 650 mg Q6HP PRN PO 03/16/25 12:45 Ceftriaxone Sodium 50 ml @ 100 mls/hr DAILY@09 IV 03/17/25 09:00 03/17/25 14:15 100 MLS/HR Ipratropium [place] 0.5 mg Q6HPRN PRN NEB 03/16/25 18:00 Albuterol 2.5 mg Q6HPRN PRN NEB 03/16/25 18:00 Lorazepam 1 mg ONCE PRN IV 03/16/25 22:00 Atorvastatin Calcium 40 mg HS PO 03/17/25 22:00 Clopidogrel Bisulfate 75 mg DAILY PO 03/18/25 10:00 Laboratory Results Laboratory Tests 03/17/25 02:23 HgA1c, TSH Test 03/17/25 09:32 Thyroid Stimulating Hormone (TSH) 0.61 uIU/mL (0.55-4.78) Urinalysis Test 03/16/25 08:28 Urine Color Yellow (Yellow) Urine Clarity Turbid (Clear) H Urine pH 5.5 (5.0-9.0) Urine Specific [place] 1.021 (1.001-1.035) Urine Protein 1+ (Negative) H Urine Ketones Trace (Negative) Urine Blood Negative /uL (Negative) Urine Nitrite Negative (Negative) Urine Bilirubin Negative (Negative) Urine Urobilinogen Normal mg/dL (Negative) Urine Leukocyte Esterase Negative /uL (Negative) Urine RBC 2 /hpf (0 - 4) Urine Microscopic WBC 2 /HPF (0-5) Urine Squamous Epithelial Cells None seen /hpf (<5) Urine Bacteria None seen /hpf (None Seen) Urine Hyaline Casts Many /lpf (0 - 2) Urine Granular Casts Many /lpf (0) Urine Mucus Few (None Seen) Urine Glucose Normal mg/dL (Normal) Microbiology Microbiology Date/Time Source Procedure Growth Status 03/17/25 00:15 Blood Blood Culture - Preliminary NO GROWTH AFTER 24 HOURS OF INCUBATION. Resulted 03/16/25 16:25 Nose MRSA Screen - Final Complete Labs and/or images reviewed: Labs reviewed by me, Image(s) reviewed by me Assessment/Plan Assessment/Plan Multiple strokes rule out cardioembolic source VERONIKA result pending, cardiology consult by Dr. Downey appreciated NSTEMI, likely type II secondary to above Hypertension Dyslipidemia Diabetes mellitus type 2 NILE on CKD COPD Anemia Patient is hospice revoked Patient is full code Time spent 50 minutes Advanced care planning time 20 mts Per patient, she was never on hospice Patient belongs to [facility], to be transferred to [facility] on 03/20/2025 Plan discussed with: Patient Date of Service: Mar 18, 2025 Billing Provider: NATALIA NOVAK MD Common Visit Codes: [id number] INP/OBS CARE(HIGH) NATALIA NOVAK MD Mar 18, 2025 08:07
--- NOTE | 2025-03-18 08:50 | DVHPN2 ---
Progress Note - Dictate Date Seen: Mar 18, 2025 Medical Necessity Reason Pt with a Central, PICC or Fol: Yes The following are medically ne: Rivera Catheter Subjective Ms. Mark is a 89 years old right-handed female with a history of hypertension, diabetes, chronic kidney failure, COPD, glaucoma, the patient was brought to the [facility] on 03/16/2025 with a chief complaint of general weakness, altered mental status. I have seen and examined the patient, I have talked to her nurse, later her family Gillian . She is doing better, awake, oriented to person, place, she follows verbal commands, reasonable social skills Her left arm is not painful anymore, she only had mild tenderness when I squeezed it At this time, she is easily arousable, only oriented to person, place, the history is obtained from her son, I have also reviewed the chart Again her son confirmed a history of mild progressive intermittent short-term memory difficulty, family worried about possible dementia on her Blood culture, 03/16/25: Blood culture, 03/17/2025: Urinalysis, 03/16/2025: WBC: 2, urine leukocyte esterase: Negative WBC/HB/PLT/MCV, 03/16/2025: 9.8/9.5/353/95.1 BUN/CR, 03/16/2025: 20/3.36 GFR, 03/16/2025: 13 HGB A1c, 03/17/2025: 6.4 TG/HDL/LDL/HDL, 03/16/2025: 89/115/56/35 TSH, 03/17/2025: 0.61 VERONIKA 03/17/2025: Technically good study. Sinus rhythm. Normal chamber sizes. Mild concentric LVH. Valves appear to be structurally normal. Mild thickening of the right coronary cusp. No stenosis present. The mitral and tricuspid are within normal limits. The pulmonic is normal. Left ventricular systolic function is preserved at 65% with normal RV function. There is mild TR. No significant aortic or mitral insufficiency. No pulmonic insufficiency. No pericardial effusion masses or vegetations discernible. A bubble study performed showing no crossover into the left chambers. No evidence for atrial septal defect. No ventricular septal defect and/or other pathology. No evidence for endocarditis or vegetations. Carotid Doppler, 03/17/2025: 1. Greater than 50%/70% stenosis of the left ICA. 2. Between 50-69% stenosis of the right ICA. Chest x-ray 03/16/25: Increased interstitial prominence. This may represent pulmonary vascular congestion and/or viral pneumonia CT head, 03/16/25: No acute intracranial abnormality (Multiple remote lacunar infarcts throughout both basal ganglia and both anguiano radiata.) MRI head, 03/17/2025: No acute cerebrovascular ischemia. Mild chronic microvascular ischemic changes. Mild global cerebral volume loss. vital signs Vital Sign Date Time Temp Pulse Resp B/P (MAP) Pulse Ox O2 Delivery O2 Flow Rate FiO2 03/18/25 08:02 97 Nasal Cannula 2.0 03/18/25 08:02 28 03/18/25 07:44 175/73 03/18/25 05:00 98.2 105 20 98.2 Total Intake and Output 03/17/25 03/17/25 03/18/25 15:00 23:00 07:00 Intake Total 0 ml 0 ml Output Total 804 ml 525 ml Balance -804 ml -525 ml medications Current Medications Medications Dose Ordered Sig/Ashley Route Start Time Stop Time Status Last Admin Dose Admin Sodium Chloride 1,000 ml @ 75 mls/hr [id number] IV 03/16/25 12:45 03/18/25 05:37 75 MLS/HR Acetaminophen/ Hydrocodone Bitart 1 tab Q4HP PRN PO 03/16/25 12:45 Ondansetron HCl 4 mg Q4HP PRN IV 03/16/25 12:45 Docusate Sodium 100 mg BIDPRN PRN PO 03/16/25 12:45 Acetaminophen 650 mg Q6HP PRN PO 03/16/25 12:45 Ceftriaxone Sodium 50 ml @ 100 mls/hr DAILY@09 IV 03/17/25 09:00 03/17/25 14:15 100 MLS/HR Ipratropium [place] 0.5 mg Q6HPRN PRN NEB 03/16/25 18:00 Albuterol 2.5 mg Q6HPRN PRN NEB 03/16/25 18:00 Lorazepam 1 mg ONCE PRN IV 03/16/25 22:00 Atorvastatin Calcium 40 mg HS PO 03/17/25 22:00 Clopidogrel Bisulfate 75 mg DAILY PO 03/18/25 10:00 objective General: the patient is well developed and nourished. No acute distress. MENTAL STATUS: Subjective SPEECH, LANGUAGE, HIGHER CORTICAL FUNCTION: no aphasia or dysathria. CRANIAL NERVES: Pupils are equal, round and reactive. EOMs full and conjugate. Facial sensation intact in all three divisions bilaterally. Mandibular strength intact. Facial muscles symmetrical and strength intact. Tongue midline. No fasciculations or atrophy. SENSATION: Sensation to touch and pinprick is normal. MOTOR: Normal tone in the upper and lower extremity. Normal muscle bulk. No fasciculations. No abnormal movements or posturing. He moves the arms and legs REFLEXES: Deep tendon reflexes are symmetrical. No pathological reflexes. CEREBELLAR/COORDINATION: Deferred laboratory and microbiology Laboratory Tests 03/17/25 02:23 Test 03/17/25 02:23 Range/Units Serum Glucose 144 H 74-106 mg/dL Problem List Altered mental status Metabolic encephalopathy Hypoxic encephalopathy Acute respiratory failure Fever/left forearm cellulitis/sepsis Cognitive dysfunction Multiple strokes Assessment/Plan Monitoring Supportive treatment Blood culture Telemetry IV antibiotics Oxygen Aspirin 81 mg daily Lipitor 20 mg daily Up to chair Physical therapy More recommendation per clinical course This medical document was created using an electronic medical record system with [employer] dictation system. Although this document has been carefully reviewed, there may still be some phonetic and typographical errors. These areas are purely typographical due to imperfections of the software programs, and do not reflect any compromise in the patient's medical care. Prognosis poor Dietary Evaluation Review Comments: 1. 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 Nepro 240ml oral supplementation TID is encouraged if pt continues refusing food. 2. If EN preferd, consider TF Nepro@ 25ml/hr (49g Protein, 1062kcal 436ml free water. Flush with allowed H2O q6r. [facility]. [facility] standard diet if HD initiated. 5. consider TPN per pharmacy meeting her daily protein and energy requirement if GI unaccessible. Expected Outcomes/Goals: prevent uremic syndrome, pervent wt loss, controlled DM Plan discussed with: James Carmona Total Time (mins): 38 MARIA R MAE MD Mar 18, 2025 08:50
[2025-03-18] MEDS: CLOPIDOGREL BISULFATE 75 MG TAB PO SCH (11:10)
[2025-03-18] MEDS: ACETAMINOPHEN 325 MG TAB PO PRN (11:26)
[2025-03-18] MEDS: Nepro With Carbsteady ButterPecan 8oz Carton PO SCH (17:44)
[2025-03-18] MEDS: ALBUTEROL SULF 2.5 MG/0.5ML(0.5%) NEB SOLN NEB PRN (20:37)
[2025-03-18] MEDS: IPRATROPIUM BROM 0.5 MG/2.5ML INH SOL NEB PRN (20:37)
[2025-03-18] MEDS: METOPROLOL TARTRATE 50 MG TAB PO SCH (21:31)
[2025-03-19] VITALS (10 sets, daily range): BP systolic 137–179; BP diastolic 58–88; PULSE 75–97; RESP 16–18; TEMP 97.5–97.9; O2SAT 94–100
[2025-03-19] MEDS: HYDROcodone-ACET 5/325MG TAB PO PRN (01:41)
--- NOTE | 2025-03-19 13:48 | DVHPN2 ---
Reviewed: Care Plan, H&P Changes from previous H/P or p: No Changes General: Per HPI Eyes: No Pain, No Vision change, No Conjunctivae inflammation, No Eyelid inflammation, No Other, No Redness ENT: No Ear pain, No Ear discharge, No Nose pain, No Nose discharge, No Nose congestion, No Mouth pain, No Mouth swelling, No Throat pain, No Throat swelling, No Other Cardiovascular: No Chest Pain, No Palpitations, No Orthopnea, No Paroxysmal Noc. Dyspnea, No Edema, No Lt Headedness, No Other Respiratory: No Cough, No Dry, No Shortness of breath, No SOB with excertion, No Wheezing, No Hemoptysis, No Pleuritic Pain, No Sputum, No Other Gastrointestinal: No Nausea, No Vomiting, No Abdominal Pain, No Diarrhea, No Constipation, No Melena, No Hematochezia, No Other Genitourinary: No Dysuria, No Frequency, No Incontinence, No Hematuria, No Retention, No Other Musculoskeletal: No other, No neck pain, No shoulder pain; arm pain (not moving left arm); No back pain, No hand pain, No leg pain, No foot pain Skin: No Rash, No Lesions, No Jaundice, No Bruising, No Other Objective Vitals Vital Signs Date Time Temp Pulse Resp B/P (MAP) Pulse Ox O2 Delivery O2 Flow Rate FiO2 03/19/25 12:58 137/58 03/19/25 10:03 78 03/19/25 10:00 98 Room Air* 0 21 03/19/25 08:00 17 03/19/25 05:00 97.9 97.9 Intake/Output Intake and Output 03/19/25 07:00 Intake Total 420 ml Output Total 1050 ml Balance -630 ml Intake Oral 420 ml Output Urine Total 1050 ml General Appearance: Alert, Cooperative Cardiovascular: Regular rate, Normal S1, Normal S2 Medications Current Medications Medications Dose Ordered Sig/Ashley Route Start Time Stop Time Status Last Admin Dose Admin Sodium Chloride 1,000 ml @ 75 mls/hr [id number] IV 03/16/25 12:45 03/19/25 07:26 75 MLS/HR Acetaminophen/ Hydrocodone Bitart 1 tab Q4HP PRN PO 03/16/25 12:45 03/19/25 01:41 1 TAB Ondansetron HCl 4 mg Q4HP PRN IV 03/16/25 12:45 Docusate Sodium 100 mg BIDPRN PRN PO 03/16/25 12:45 Acetaminophen 650 mg Q6HP PRN PO 03/16/25 12:45 03/18/25 11:26 650 MG Ceftriaxone Sodium 50 ml @ 100 mls/hr DAILY@09 IV 03/17/25 09:00 03/19/25 09:01 100 MLS/HR Ipratropium [place] 0.5 mg Q6HPRN PRN NEB 03/16/25 18:00 03/18/25 20:37 0.5 MG Albuterol 2.5 mg Q6HPRN PRN NEB 03/16/25 18:00 03/18/25 20:37 2.5 MG Lorazepam 1 mg ONCE PRN IV 03/16/25 22:00 Atorvastatin Calcium 40 mg HS PO 03/17/25 22:00 03/18/25 21:31 40 MG Clopidogrel Bisulfate 75 mg DAILY PO 03/18/25 10:00 03/19/25 09:01 75 MG Enteral Nutritional Formula 240 ml TIDWM PO 03/18/25 18:00 03/19/25 12:00 240 ML Metoprolol Tartrate 50 mg BID PO 03/18/25 22:00 03/19/25 09:03 50 MG Clonidine HCl 0.1 mg Q4HP PRN PO 03/19/25 00:45 03/19/25 11:58 0.1 MG Laboratory Results Laboratory Tests 03/17/25 02:23 Urinalysis Test 03/16/25 08:28 Urine Color Yellow (Yellow) Urine Clarity Turbid (Clear) H Urine pH 5.5 (5.0-9.0) Urine Specific [place] 1.021 (1.001-1.035) Urine Protein 1+ (Negative) H Urine Ketones Trace (Negative) Urine Blood Negative /uL (Negative) Urine Nitrite Negative (Negative) Urine Bilirubin Negative (Negative) Urine Urobilinogen Normal mg/dL (Negative) Urine Leukocyte Esterase Negative /uL (Negative) Urine RBC 2 /hpf (0 - 4) Urine Microscopic WBC 2 /HPF (0-5) Urine Squamous Epithelial Cells None seen /hpf (<5) Urine Bacteria None seen /hpf (None Seen) Urine Hyaline Casts Many /lpf (0 - 2) Urine Granular Casts Many /lpf (0) Urine Mucus Few (None Seen) Urine Glucose Normal mg/dL (Normal) Microbiology Microbiology Date/Time Source Procedure Growth Status 03/17/25 00:15 Blood Blood Culture - Preliminary NO GROWTH AFTER 48 HOURS OF INCUBATION. Resulted 03/16/25 16:25 Nose MRSA Screen - Final Complete Labs and/or images reviewed: Labs reviewed by me, Image(s) reviewed by me Assessment/Plan Assessment/Plan Multiple strokes rule out cardioembolic source NSTEMI, likely type II secondary to above Hypertension Dyslipidemia Diabetes mellitus type 2 NILE on CKD COPD Anemia improving Plan discussed with: Patient Date of Service: Mar 19, 2025 Billing Provider: JAKOB MEJIA DO Common Visit Codes: [id number] INP/OBS CARE(HIGH) JAKOB MEJIA DO Mar 19, 2025 13:48
--- NOTE | 2025-03-19 17:40 | DVHINCON2 ---
Date of service: Mar 19, 2025 Referring Physician Miller Rocha MD Reason for Consultation CKD History of Present Illness Lyubov Mark is an 89-year-old F with a Past Medical History pertinent for Hypertension, COPD, Diabetes Mellitus, Anemia, CKD and multiple strokes who presented to the hospital with complaint of generalized weakness. Patient presented with generalized weakness associated with confusion and left-sided weakness. Patient is somewhat of a poor historian. She is awake, oriented to person, place and follows verbal commands. Patient's son has reported history of mild progressive intermittent short-term memory difficulty. VERONIKA performed on 03/17/25 reported no pericardial effusion masses or vegetations discernible; bubble study performed showing no crossover into the left chambers; no evidence for atrial septal defect; no ventricular septal defect and/or other pathology; no evidence for endocarditis or vegetations- additional findings per report. Carotid Doppler performed on 03/17/2025 reported greater than 50%/70% stenosis of the left ICA; between 50-69% stenosis of the right ICA. MRI head performed on 03/17/2025 reported no acute cerebrovascular ischemia; mild chronic microvascular ischemic changes; mild global cerebral volume loss. Labs were remarkable for Creatinine 1.91 with BUN of 21. eGFR 25. CO2 18. Glucose 144. Allergies: Coded Allergies: NO KNOWN ALLERGIES (Unverified , 06/29/23) Home Meds Active Scripts Acetaminophen (Acetaminophen) 500 Mg Tab, 500 MG PO Q4HP PRN, #30 TAB Prov:MILAN YEE PAC 03/03/25 Ondansetron Odt 4MG Tab (ZOFRAN PO) 4 Mg Tb, 4 MG PO Q6HP PRN, #20 TAB ODT TAB-DISSOLVE IN MOUTH, THEN SWALLOW Prov:MILAN YEE 03/03/25 Sulfamethoxazole W/Trimethopri (Bactrim Ds Tablet) 1 Tab Tb, 1 TAB PO BID for 7 Days, #14 TAB Prov:MILAN YEE 03/03/25 Clindamycin Hcl (Clindamycin Hcl) 300 Mg Cap, 150 MG PO TID for 10 Days, #30 CAP Prov:MIGUEL ANGEL CÁRDENAS MD 03/21/24 Cephalexin (KEFLEX CAPSULE) 250 Mg Cp, 250 MG PO QID for 10 Days, #40 BOTTLE Prov:MIGUEL ANGEL CÁRDENAS MD 03/21/24 Clindamycin Hcl (Clindamycin Hcl) 300 Mg Cap, 1 CAP PO TID for 7 Days, #21 CAP Prov:MADDOXHANSEL REFRIGERATION OPERATOR 08/21/23 Clindamycin Hcl (Clindamycin Hcl) 300 Mg Cap, 450 MG PO TID for 7 Days, #32 CAP Prov:LINWOOD SCOTT PAC 06/30/23 Reported Medications Sevelamer Carbonate (Renvela) 800 Mg Tab, 3 TAB PO TID, #810 TAB 3 Refills 03/17/25 Gabapentin (Gabapentin) 300 Mg Cap, 1 CAP PO BID, #90 CAP 5 Refills 03/17/25 Lisinopril (Lisinopril) 20 Mg Tab, 1 TAB PO DAILY, #30 TAB 5 Refills 03/17/25 Clopidogrel Bisulfate (CLOPIDOGREL) 75 Mg Tab, 1 TAB PO DAILY, #90 TAB 1 Refill 03/17/25 Hydrochlorothiazide (Hydrochlorothiazide) 25 Mg Tab, 1 TAB PO DAILY, #30 TAB 5 Refills 03/17/25 Amlodipine Besylate (Amlodipine Besylate) 10 Mg Tab, 1 TAB PO DAILY, #30 TAB 5 Refills 03/17/25 Omeprazole (Prilosec Susp (For Gt)) 20 Mg Ss, 20 MG GT, ML 03/17/25 Clonidine Hydrochloride (Clonidine Hcl) 0.2 Mg Tab, 1 TAB PO BID, #180 TAB 3 Refills 03/17/25 Metoprolol Tartrate (Metoprolol Tartrate) 50 Mg Tab, 50 MG PO BID, TAB 03/17/25 Current Medications Current Medications Medications (Trade) Dose Ordered Sig/Ashley Route PRN Reason Start Time Stop Time Status Last Admin Metoprolol Tartrate (Lopressor Tablet) 50 mg BID PO 03/18/25 22:00 03/19/25 09:03 Clonidine HCl (Catapres Tablet) 0.1 mg Q4HP PRN PO SBP>150 03/19/25 00:45 03/19/25 17:53 Family History: Patient reports no known family medical history. Review of Systems Unable to review due to patient's mental status. H&P Exam Vital Signs/I&O Vital Sign Date Time Temp Pulse Resp B/P (MAP) Pulse Ox O2 Delivery O2 Flow Rate FiO2 03/19/25 21:00 97.5 75 16 176/88 (117) 100 97.5 03/19/25 20:00 2.0 28 03/19/25 18:35 Nasal Cannula Intake and Output 03/18/25 03/19/25 19:00 07:00 Intake Total 120 ml 300 ml Output Total 400 ml 650 ml Balance -280 ml -350 ml Intake Oral 120 ml 300 ml Output Urine Total 400 ml 650 ml Physical Exam Vitals and nursing notes reviewed. General Appearance: Other (Drowsy oriented x 1) . In no acute distress. HEENT: Atraumatic, PERRLA Cardiovascular: Regular rate, Normal S1, Normal S2 Pulmonary: Normal effort. Clear breath sounds Abdominal: Normal bowel sounds, Soft, No tenderness Extremities: No clubbing, No cyanosis, No edema, Normal pulses, No tenderness/swelling Skin: No rashes, No breakdown, No significant lesion Neuro: Other (Difficulty moving left arm, minimal ambulation at baseline) Psych/Mental Status: Other (Oriented x 1, ) Labs/Diagnostic Data Labs/Diagnostic Data Laboratory Tests Test 03/18/25 08:36 03/17/25 09:32 03/17/25 03:40 03/17/25 02:23 Range/Units B-Type Natriuretic Peptide 201.44 0-100 pg/mL Troponin I High Sensitivity 66 *H 38 *H 28 </=34 ng/L Thyroid Stimulating Hormone (TSH) 0.61 0.55-4.78 uIU/mL White Blood Count 10.5 4.4-10.8 10^3/uL Red Blood Count 3.13 L 4.0-5.20 10^6/uL Hemoglobin 10.2 L 12.2-16.2 g/dL Hematocrit 29.1 L 36.0-46.0 % Mean Corpuscular Volume 93.0 80.0-100.0 fL Mean Corpuscular Hemoglobin 32.5 H 28.0-32.0 pg Mean Corpuscular Hemoglobin Concent 35.0 32.0-36.0 g/dL Red Cell Distribution Width 14.7 H 11.8-14.3 % Platelet Count 368 140-450 10^3/uL Mean Platelet Volume 7.8 6.9-10.8 fL Neutrophils (%) (Auto) 76.7 37.0-80.0 % Lymphocytes (%) (Auto) 7.6 L 10.0-50.0 % Monocytes (%) (Auto) 15.4 H 0.0-12.0 % Eosinophils (%) (Auto) 0.0 0.0-7.0 % Basophils (%) (Auto) 0.3 0.0-2.0 % Neutrophils # (Auto) 8.0 1.6-8.6 10 ^3/uL Lymphocytes # (Auto) 0.8 0.4-5.4 10 ^3/uL Monocytes # (Auto) 1.6 H 0-1.3 10 ^3/uL Eosinophils # (Auto) 0 0-0.8 10 ^3/uL Basophils # (Auto) 0 0-0.2 10 ^3/uL Nucleated Red Blood Cells 0.1 % Sodium Level 136 136-145 mmol/L Potassium Level 4.3 3.5-5.1 mmol/L Chloride Level 106 98-107 mmol/L Carbon Dioxide Level 18 L 20-31 mmol/L Anion Gap 12 5-15 Blood Urea Nitrogen 21 9-23 mg/dL Creatinine 1.91 #H 0.550-1.02 mg/dL Glomerular Filtration Rate Calc 25 >90 mL/min BUN/Creatinine Ratio 11.0 10.0-20.0 Serum Glucose 144 H 74-106 mg/dL Hemoglobin A1c 6.4 H <5.7 % A1C Calcium Level 8.5 L 8.7-10.4 mg/dL Magnesium Level 1.9 1.6-2.6 mg/dL Total Bilirubin 0.4 0.2-1.0 mg/dL Aspartate Amino Transferase (AST) 96 H 13-40 U/L Alanine Aminotransferase (ALT) 21 7-40 U/L Alkaline Phosphatase 69 46-116 U/L Total Protein 6.6 5.7-8.2 g/dL Albumin 3.4 3.2-4.8 g/dL Test 03/16/25 08:28 03/16/25 05:51 Range/Units Urine Color Yellow Yellow Urine Clarity Turbid H Clear Urine pH 5.5 5.0-9.0 Urine Specific Happy 1.021 1.001-1.035 Urine Protein 1+ H Negative Urine Ketones Trace Negative Urine Blood Negative Negative /uL Urine Nitrite Negative Negative Urine Bilirubin Negative Negative Urine Urobilinogen Normal Negative mg/dL Urine Leukocyte Esterase Negative Negative /uL Urine RBC 2 0 - 4 /hpf Urine Microscopic WBC 2 0-5 /HPF Urine Squamous Epithelial Cells None seen <5 /hpf Urine Bacteria None seen None Seen /hpf Urine Hyaline Casts Many 0 - 2 /lpf Urine Granular Casts Many 0 /lpf Urine Mucus Few None Seen Urine Glucose Normal Normal mg/dL White Blood Count 9.8 4.4-10.8 10^3/uL Red Blood Count 3.00 L 4.0-5.20 10^6/uL Hemoglobin 9.5 L 12.2-16.2 g/dL Hematocrit 28.6 L 36.0-46.0 % Mean Corpuscular Volume 95.1 80.0-100.0 fL Mean Corpuscular Hemoglobin 31.8 28.0-32.0 pg Mean Corpuscular Hemoglobin Concent 33.4 32.0-36.0 g/dL Red Cell Distribution Width 15.1 H 11.8-14.3 % Platelet Count 353 140-450 10^3/uL Mean Platelet Volume 7.9 6.9-10.8 fL Neutrophils (%) (Auto) 67.5 37.0-80.0 % Lymphocytes (%) (Auto) 14.2 10.0-50.0 % Monocytes (%) (Auto) 17.9 H 0.0-12.0 % Eosinophils (%) (Auto) 0.1 0.0-7.0 % Basophils (%) (Auto) 0.3 0.0-2.0 % Neutrophils # (Auto) 6.6 1.6-8.6 10 ^3/uL Lymphocytes # (Auto) 1.4 0.4-5.4 10 ^3/uL Monocytes # (Auto) 1.8 H 0-1.3 10 ^3/uL Eosinophils # (Auto) 0 0-0.8 10 ^3/uL Basophils # (Auto) 0 0-0.2 10 ^3/uL Nucleated Red Blood Cells 0.0 % Sodium Level 135 L 136-145 mmol/L Potassium Level 4.7 3.5-5.1 mmol/L Chloride Level 104 98-107 mmol/L Carbon Dioxide Level 23 20-31 mmol/L Anion Gap 8 5-15 Blood Urea Nitrogen 20 9-23 mg/dL Creatinine 3.36 H 0.550-1.02 mg/dL Glomerular Filtration Rate Calc 13 >90 mL/min BUN/Creatinine Ratio 6.0 L 10.0-20.0 Serum Glucose 144 H 74-106 mg/dL Lactic Acid Level 1.0 0.4-2.0 mmol/L Calcium Level 8.7 8.7-10.4 mg/dL Troponin I High Sensitivity 14 </=34 ng/L Triglycerides Level 89 < 150 mg/dL Cholesterol Level 115 < 200 mg/dL LDL Cholesterol 56 < 100 mg/dL HDL Cholesterol 35 L 40-59 mg/dL Microbiology Date/Time Source Procedure Growth Status 03/16/25 16:25 Nose MRSA Screen - Final Complete Assessment Multiple strokes NSTEMI, likely type II secondary to above Hypertension Dyslipidemia Diabetes mellitus type 2 NILE on CKD COPD Anemia Plan/Recommendation Agreement with your ongoing assessment and plan of care. Cardiology and Neurology consulted. Daily lab monitoring to include renal function and electrolytes. Electrolyte replacement prn. IVFs with NS at 75 mL/hr. Intake/Output monitoring with Rivera. Home medications resumed as ordered. Nutritional support. Pain management prn. Additional plan as per the hospital course. Plan discussed with: Patient, Other (RN) RIAN LA DO Mar 19, 2025 17:40
[2025-03-20] VITALS (11 sets, daily range): BP systolic 101–180; BP diastolic 65–76; PULSE 68–88; RESP 15–17; TEMP 97.6–98.3; O2SAT 96–99
--- NOTE | 2025-03-20 15:23 | DVH ---
XY L FOOT 2 VIEW XRAY, INDICATION: PAIN S/P FALL TECHNICAL DATA: Frontal, oblique and lateral views were obtained of the left foot. COMPARISON: None. FINDINGS: The bones are demineralized. No fracture is identified. Joint spaces are maintained. Alignment is todd tomic. The hallux sesamoids appear normal. Soft tissues are within normal limits. IMPRESSION: 1. No acute fracture or dislocation. 2. Osseous demineralization.
--- NOTE | 2025-03-20 19:59 | DVHPN2 ---
Progress Note - Dictate Date Seen: Mar 20, 2025 Has the PT tested + for MRSA If YES, has PT been informed?: No Medical Necessity Reason Pt with a Central, PICC or Fol: Yes The following are medically ne: Rivera Catheter Subjective Patient was seen and evaluated in follow up. No acute events overnight. Sitter at bedside. Patient complains of left foot pain. No new labs. vital signs Vital Sign Date Time Temp Pulse Resp B/P (MAP) Pulse Ox O2 Delivery O2 Flow Rate FiO2 03/20/25 18:21 179/73 03/20/25 17:00 97.9 72 15 99 97.9 03/20/25 09:56 Room Air 03/20/25 09:56 0 21 Total Intake and Output 03/19/25 03/19/25 03/20/25 14:59 22:59 06:59 Intake Total 480 ml 480 ml Output Total 300 ml Balance 480 ml 180 ml medications Current Medications Medications Dose Ordered Sig/Ashley Route Start Time Stop Time Status Last Admin Dose Admin Sodium Chloride 1,000 ml @ 75 mls/hr [id number] IV 03/16/25 12:45 03/20/25 10:30 75 MLS/HR Acetaminophen/ Hydrocodone Bitart 1 tab Q4HP PRN PO 03/16/25 12:45 03/19/25 17:53 1 TAB Ondansetron HCl 4 mg Q4HP PRN IV 03/16/25 12:45 Docusate Sodium 100 mg BIDPRN PRN PO 03/16/25 12:45 Acetaminophen 650 mg Q6HP PRN PO 03/16/25 12:45 03/20/25 15:11 650 MG Ceftriaxone Sodium 50 ml @ 100 mls/hr DAILY@09 IV 03/17/25 09:00 03/20/25 08:59 100 MLS/HR Ipratropium Talmage 0.5 mg Q6HPRN PRN NEB 03/16/25 18:00 03/18/25 20:37 0.5 MG Albuterol 2.5 mg Q6HPRN PRN NEB 03/16/25 18:00 03/18/25 20:37 2.5 MG Lorazepam 1 mg ONCE PRN IV 03/16/25 22:00 Atorvastatin Calcium 40 mg HS PO 03/17/25 22:00 03/19/25 21:26 40 MG Clopidogrel Bisulfate 75 mg DAILY PO 03/18/25 10:00 03/20/25 09:59 75 MG Enteral Nutritional Formula 240 ml TIDWM PO 03/18/25 18:00 03/20/25 18:10 240 ML Metoprolol Tartrate 50 mg BID PO 03/18/25 22:00 03/20/25 09:59 50 MG Clonidine HCl 0.1 mg Q4HP PRN PO 03/19/25 00:45 03/20/25 18:21 0.1 MG objective Vitals and nursing notes reviewed. General Appearance: Other (Drowsy oriented x 1) . In no acute distress. HEENT: Atraumatic, PERRLA Cardiovascular: Regular rate, Normal S1, Normal S2 Pulmonary: Normal effort. Clear breath sounds Abdominal: Normal bowel sounds, Soft, No tenderness Extremities: No clubbing, No cyanosis, No edema, Normal pulses, No tenderness/swelling Skin: No rashes, No breakdown, No significant lesion Neuro: Other (Difficulty moving left arm, minimal ambulation at baseline) Psych/Mental Status: Other (Oriented x 1, ) laboratory and microbiology Laboratory Tests 03/17/25 02:23 Test 03/17/25 02:23 Range/Units Serum Glucose 144 H 74-106 mg/dL Problem List Multiple strokes NSTEMI, likely type II secondary to above Hypertension Dyslipidemia Diabetes mellitus type 2 NILE on CKD COPD Anemia Assessment/Plan Agree with current supportive medical care. Sitter at bedside. Left foot x-ray. Daily lab monitoring to include renal function and electrolytes. Electrolyte replacement prn. IVFs with NS at 75 mL/hr. Intake/Output monitoring with Rivera. Home medications resumed as ordered. Nutritional support. Pain management prn. Additional plan as per the hospital course. Dietary Evaluation Review Comments: 1. 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 Nepro 240ml oral supplementation TID is encouraged if pt continues refusing food. 2. If EN preferd, consider TF Nepro@ 25ml/hr (49g Protein, 1062kcal 436ml free water. Flush with allowed H2O q6r. [facility]. [facility] if HD initiated. 5. consider TPN per pharmacy meeting her daily protein and energy requirement if GI unaccessible. Expected Outcomes/Goals: prevent uremic syndrome, pervent wt loss, controlled DM Plan discussed with: Patient, Other (RN) RIAN LA DO Mar 20, 2025 19:59
[2025-03-21] VITALS (13 sets, daily range): BP systolic 116–175; BP diastolic 68–86; PULSE 61–91; RESP 14–18; TEMP 97.9–98.3; O2SAT 97–100
[2025-03-21] MEDS: hydrALAZINE HCL 20 MG/ML VL IV ONE (01:06)
[2025-03-21 11:56] LABS: Hematocrit 28.4 % (36.0-46.0); Hemoglobin 9.7 g/dL (12.2-16.2); Mean Corpuscular Hemoglobin 31.5 pg (28.0-32.0); Mean Corpuscular Volume 91.8 fL (80.0-100.0); Nucleated Red Blood Cells % 0.6 %
[2025-03-21 12:04] LABS: Alanine Aminotransferase 21 U/L (7-40); Albumin 3.3 g/dL (3.2-4.8); Alkaline Phosphatase 71 U/L (46-116); Anion Gap 11 (5-15); BUN/Creatinine Ratio 7.8 (10.0-20.0); Bilirubin, Total 0.3 mg/dL (0.2-1.0); Blood Urea Nitrogen 10 mg/dL (9-23); Calcium 8.3 mg/dL (8.7-10.4); Carbon Dioxide 24 mmol/L (20-31); Chloride 106 mmol/L (98-107); Glucose 123 mg/dL (74-106); Potassium 2.8 mmol/L (3.5-5.1); Sodium 141 mmol/L (136-145); Total Protein 6.2 g/dL (5.7-8.2)
[2025-03-21] MEDS: POTASSIUM CHL 20 Meq TABLET PO ONE (13:44)
[2025-03-21] MEDS ORDERED: ATOR20TA50 PO (14:51)
[2025-03-21] MEDS ORDERED: NIFE1TAB31 PO (14:51)
[2025-03-21] MEDS ORDERED: MET50T PO (14:51)
--- NOTE | 2025-03-21 19:46 | DVHPN2 ---
Progress Note - Dictate Date Seen: Mar 21, 2025 Has the PT tested + for MRSA If YES, has PT been informed?: No Medical Necessity Reason Pt with a Central, PICC or Fol: Yes The following are medically ne: Rivera Catheter Subjective Ms. Mark is a 89 years old right-handed female with a history of hypertension, diabetes, chronic kidney failure, COPD, glaucoma, the patient was brought to the [facility] on 03/16/2025 with a chief complaint of general weakness, altered mental status. I have seen and examined the patient, I have talked to her nurse, in the room members are in the room with her. She is doing better, awake, oriented to person, place, reasonable social skills Blood culture, 03/16/25: No growth Blood culture, 03/17/2025: Urinalysis, 03/16/2025: WBC: 2, urine leukocyte esterase: Negative WBC/HB/PLT/MCV, 03/16/2025: 9.8/9.5/353/95.1 BUN/CR, 03/16/2025: 20/3.36 GFR, 03/16/2025: 13 HGB A1c, 03/17/2025: 6.4 TG/HDL/LDL/HDL, 03/16/2025: 89/115/56/35 TSH, 03/17/2025: 0.61 VERONIKA 03/17/2025: Technically good study. Sinus rhythm. Normal chamber sizes. Mild concentric LVH. Valves appear to be structurally normal. Mild thickening of the right coronary cusp. No stenosis present. The mitral and tricuspid are within normal limits. The pulmonic is normal. Left ventricular systolic function is preserved at 65% with normal RV function. There is mild TR. No significant aortic or mitral insufficiency. No pulmonic insufficiency. No pericardial effusion masses or vegetations discernible. A bubble study performed showing no crossover into the left chambers. No evidence for atrial septal defect. No ventricular septal defect and/or other pathology. No evidence for endocarditis or vegetations. Carotid Doppler, 03/17/2025: 1. Greater than 50%/70% stenosis of the left ICA. 2. Between 50-69% stenosis of the right ICA. Chest x-ray 03/16/25: Increased interstitial prominence. This may represent pulmonary vascular congestion and/or viral pneumonia CT head, 03/16/25: No acute intracranial abnormality (Multiple remote lacunar infarcts throughout both basal ganglia and both anguiano radiata.) MRI head, 03/17/2025: No acute cerebrovascular ischemia. Mild chronic microvascular ischemic changes. Mild global cerebral volume loss. vital signs Vital Sign Date Time Temp Pulse Resp B/P (MAP) Pulse Ox O2 Delivery O2 Flow Rate FiO2 03/21/25 17:00 98.1 85 17 165/86 (112) 100 98.1 03/21/25 10:30 Nasal Cannula* 1 24 Total Intake and Output 03/20/25 03/20/25 03/21/25 15:00 23:00 07:00 Intake Total 500 ml 200 ml Balance 500 ml 200 ml medications Current Medications Medications Dose Ordered Sig/Ashley Route Start Time Stop Time Status Last Admin Dose Admin Sodium Chloride 1,000 ml @ 75 mls/hr [id number] IV 03/16/25 12:45 03/20/25 10:30 75 MLS/HR Acetaminophen/ Hydrocodone Bitart 1 tab Q4HP PRN PO 03/16/25 12:45 03/21/25 05:51 1 TAB Ondansetron HCl 4 mg Q4HP PRN IV 03/16/25 12:45 Docusate Sodium 100 mg BIDPRN PRN PO 03/16/25 12:45 Acetaminophen 650 mg Q6HP PRN PO 03/16/25 12:45 03/21/25 01:59 650 MG Ceftriaxone Sodium 50 ml @ 100 mls/hr DAILY@09 IV 03/17/25 09:00 03/21/25 08:54 100 MLS/HR Ipratropium Sheldahl 0.5 mg Q6HPRN PRN NEB 03/16/25 18:00 03/21/25 01:12 0.5 MG Albuterol 2.5 mg Q6HPRN PRN NEB 03/16/25 18:00 03/21/25 01:13 2.5 MG Lorazepam 1 mg ONCE PRN IV 03/16/25 22:00 Atorvastatin Calcium 40 mg HS PO 03/17/25 22:00 03/20/25 21:25 40 MG Clopidogrel Bisulfate 75 mg DAILY PO 03/18/25 10:00 03/21/25 08:54 75 MG Enteral Nutritional Formula 240 ml TIDWM PO 03/18/25 18:00 03/21/25 17:45 240 ML Metoprolol Tartrate 50 mg BID PO 03/18/25 22:00 03/21/25 08:55 50 MG Clonidine HCl 0.1 mg Q4HP PRN PO 03/19/25 00:45 03/21/25 15:38 0.1 MG Nifedipine 60 mg DAILY PO 03/22/25 10:00 objective General: the patient is well developed and nourished. No acute distress. MENTAL STATUS: Subjective SPEECH, LANGUAGE, HIGHER CORTICAL FUNCTION: no aphasia or dysathria. CRANIAL NERVES: Pupils are equal, round and reactive. EOMs full and conjugate. Facial sensation intact in all three divisions bilaterally. Mandibular strength intact. Facial muscles symmetrical and strength intact. Tongue midline. No fasciculations or atrophy. SENSATION: Sensation to touch and pinprick is normal. MOTOR: Normal tone in the upper and lower extremity. Normal muscle bulk. No fasciculations. No abnormal movements or posturing. He moves the arms and legs REFLEXES: Deep tendon reflexes are symmetrical. No pathological reflexes. CEREBELLAR/COORDINATION: Deferred laboratory and microbiology Laboratory Tests 03/21/25 11:29 Test 03/21/25 11:29 Range/Units Serum Glucose 123 H 74-106 mg/dL Problem List Altered mental status Metabolic encephalopathy Hypoxic encephalopathy Acute respiratory failure Fever/left forearm cellulitis/sepsis Cognitive dysfunction Multiple strokes Assessment/Plan Monitoring Supportive treatment Vitamin B12, folic acid Blood culture Telemetry IV antibiotics Oxygen Aspirin 81 mg daily Lipitor 20 mg daily Up to chair Physical therapy More recommendation per clinical course Okay to discharge home from neurologic point of view This medical document was created using an electronic medical record system with U4[employer] dictation system. Although this document has been carefully reviewed, there may still be some phonetic and typographical errors. These areas are purely typographical due to imperfections of the software programs, and do not reflect any compromise in the patient's medical care. Prognosis poor Dietary Evaluation Review Comments: 1. 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 Nepro 240ml oral supplementation TID is encouraged if pt continues refusing food. 2. If EN preferd, consider TF Nepro@ 25ml/hr (49g Protein, 1062kcal 436ml free water. Flush with allowed H2O q6r. [facility]. [facility] standard diet if HD initiated. 5. consider TPN per pharmacy meeting her daily protein and energy requirement if GI unaccessible. Expected Outcomes/Goals: prevent uremic syndrome, pervent wt loss, controlled DM Plan discussed with: Other MARIA R MAE MD Mar 21, 2025 19:46
--- NOTE | 2025-03-21 20:06 | DVHPN2 ---
Progress Note - Dictate Date Seen: Mar 21, 2025 Has the PT tested + for MRSA If YES, has PT been informed?: No Medical Necessity Reason Pt with a Central, PICC or Fol: Yes The following are medically ne: Rivera Catheter Subjective Patient was seen and evaluated in follow up. No acute events overnight. Patient is doing better, able to follow verbal commands. Awake, oriented to person, place. Blood pressure is uncontrolled. Creatinine 1.28 with normal BUN. vital signs Vital Sign Date Time Temp Pulse Resp B/P (MAP) Pulse Ox O2 Delivery O2 Flow Rate FiO2 03/21/25 17:00 98.1 85 17 165/86 (112) 100 98.1 03/21/25 10:30 Nasal Cannula* 1 24 Total Intake and Output 03/20/25 03/20/25 03/21/25 15:00 23:00 07:00 Intake Total 500 ml 200 ml Balance 500 ml 200 ml medications Current Medications Medications Dose Ordered Sig/Ashley Route Start Time Stop Time Status Last Admin Dose Admin Sodium Chloride 1,000 ml @ 75 mls/hr [id number] IV 03/16/25 12:45 03/20/25 10:30 75 MLS/HR Acetaminophen/ Hydrocodone Bitart 1 tab Q4HP PRN PO 03/16/25 12:45 03/21/25 05:51 1 TAB Ondansetron HCl 4 mg Q4HP PRN IV 03/16/25 12:45 Docusate Sodium 100 mg BIDPRN PRN PO 03/16/25 12:45 Acetaminophen 650 mg Q6HP PRN PO 03/16/25 12:45 03/21/25 01:59 650 MG Ceftriaxone Sodium 50 ml @ 100 mls/hr DAILY@09 IV 03/17/25 09:00 03/21/25 08:54 100 MLS/HR Ipratropium Emery 0.5 mg Q6HPRN PRN NEB 03/16/25 18:00 03/21/25 01:12 0.5 MG Albuterol 2.5 mg Q6HPRN PRN NEB 03/16/25 18:00 03/21/25 01:13 2.5 MG Lorazepam 1 mg ONCE PRN IV 03/16/25 22:00 Atorvastatin Calcium 40 mg HS PO 03/17/25 22:00 03/20/25 21:25 40 MG Clopidogrel Bisulfate 75 mg DAILY PO 03/18/25 10:00 03/21/25 08:54 75 MG Enteral Nutritional Formula 240 ml TIDWM PO 03/18/25 18:00 03/21/25 17:45 240 ML Metoprolol Tartrate 50 mg BID PO 03/18/25 22:00 03/21/25 08:55 50 MG Clonidine HCl 0.1 mg Q4HP PRN PO 03/19/25 00:45 03/21/25 15:38 0.1 MG Nifedipine 60 mg DAILY PO 03/22/25 10:00 objective Vitals and nursing notes reviewed. General Appearance: In no acute distress. HEENT: Atraumatic, PERRLA Cardiovascular: Regular rate, Normal S1, Normal S2 Pulmonary: Normal effort. Clear breath sounds Abdominal: Normal bowel sounds, Soft, No tenderness Extremities: No clubbing, No cyanosis, No edema, Normal pulses, No tenderness/swelling Skin: No rashes, No breakdown, No significant lesion Neuro: Other (Difficulty moving left arm, minimal ambulation at baseline) Psych/Mental Status: Other (Oriented x 2, ) laboratory and microbiology Laboratory Tests 03/21/25 11:29 Test 03/21/25 11:29 Range/Units Serum Glucose 123 H 74-106 mg/dL Problem List Multiple strokes NSTEMI, likely type II secondary to above Hypertension Dyslipidemia Diabetes mellitus type 2 NILE on CKD COPD Anemia Assessment/Plan Agree with current supportive medical care. Monitor renal function. Electrolyte replacement prn. IVFs with NS at 75 mL/hr. Intake/Output monitoring with Rivera. Optimization of BP with IV Hydralazine. Home medications resumed as ordered. Nutritional support. Pain management prn. Additional plan as per the hospital course. Dietary Evaluation Review Comments: 1. 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 Nepro 240ml oral supplementation TID is encouraged if pt continues refusing food. 2. If EN preferd, consider TF Nepro@ 25ml/hr (49g Protein, 1062kcal 436ml free water. Flush with allowed H2O q6r. [facility]. [facility] standard diet if HD initiated. 5. consider TPN per pharmacy meeting her daily protein and energy requirement if GI unaccessible. Expected Outcomes/Goals: prevent uremic syndrome, pervent wt loss, controlled DM Plan discussed with: Patient, Other (RN) RIAN LA DO Mar 21, 2025 20:06
--- NOTE | 2025-03-21 21:25 | DVHPN2 ---
Reviewed: Care Plan, H&P Changes from previous H/P or p: No Changes General: Per HPI Eyes: No Pain, No Vision change, No Conjunctivae inflammation, No Eyelid inflammation, No Other, No Redness ENT: No Ear pain, No Ear discharge, No Nose pain, No Nose discharge, No Nose congestion, No Mouth pain, No Mouth swelling, No Throat pain, No Throat swelling, No Other Cardiovascular: No Chest Pain, No Palpitations, No Orthopnea, No Paroxysmal Noc. Dyspnea, No Edema, No Lt Headedness, No Other Respiratory: No Cough, No Dry, No Shortness of breath, No SOB with excertion, No Wheezing, No Hemoptysis, No Pleuritic Pain, No Sputum, No Other Gastrointestinal: No Nausea, No Vomiting, No Abdominal Pain, No Diarrhea, No Constipation, No Melena, No Hematochezia, No Other Genitourinary: No Dysuria, No Frequency, No Incontinence, No Hematuria, No Retention, No Other Musculoskeletal: No other, No neck pain, No shoulder pain; arm pain (not moving left arm); No back pain, No hand pain, No leg pain, No foot pain Skin: No Rash, No Lesions, No Jaundice, No Bruising, No Other Objective Vitals Vital Signs Date Time Temp Pulse Resp B/P (MAP) Pulse Ox O2 Delivery O2 Flow Rate FiO2 03/21/25 21:25 86 154/66 03/21/25 20:00 18 97 2.0 28 03/21/25 17:00 98.1 98.1 03/21/25 10:30 Nasal Cannula* Intake/Output Intake and Output 03/21/25 06:59 Intake Total 700 ml Balance 700 ml Intake Oral 700 ml # Voids 3 # Bowel Movements 6 General Appearance: Alert, Cooperative Cardiovascular: Regular rate, Normal S1, Normal S2 Medications Current Medications Medications Dose Ordered Sig/Ashley Route Start Time Stop Time Status Last Admin Dose Admin Sodium Chloride 1,000 ml @ 75 mls/hr [id number] IV 03/16/25 12:45 03/20/25 10:30 75 MLS/HR Acetaminophen/ Hydrocodone Bitart 1 tab Q4HP PRN PO 03/16/25 12:45 03/21/25 05:51 1 TAB Ondansetron HCl 4 mg Q4HP PRN IV 03/16/25 12:45 Docusate Sodium 100 mg BIDPRN PRN PO 03/16/25 12:45 Acetaminophen 650 mg Q6HP PRN PO 03/16/25 12:45 03/21/25 01:59 650 MG Ceftriaxone Sodium 50 ml @ 100 mls/hr DAILY@09 IV 03/17/25 09:00 03/21/25 08:54 100 MLS/HR Ipratropium [place] 0.5 mg Q6HPRN PRN NEB 03/16/25 18:00 03/21/25 01:12 0.5 MG Albuterol 2.5 mg Q6HPRN PRN NEB 03/16/25 18:00 03/21/25 01:13 2.5 MG Lorazepam 1 mg ONCE PRN IV 03/16/25 22:00 Atorvastatin Calcium 40 mg HS PO 03/17/25 22:00 03/21/25 21:13 40 MG Clopidogrel Bisulfate 75 mg DAILY PO 03/18/25 10:00 03/21/25 08:54 75 MG Enteral Nutritional Formula 240 ml TIDWM PO 03/18/25 18:00 03/21/25 17:45 240 ML Metoprolol Tartrate 50 mg BID PO 03/18/25 22:00 03/21/25 21:25 50 MG Clonidine HCl 0.1 mg Q4HP PRN PO 03/19/25 00:45 03/21/25 15:38 0.1 MG Nifedipine 60 mg DAILY PO 03/22/25 10:00 Laboratory Results Laboratory Tests 03/21/25 11:29 Chemistry Test 03/21/25 11:29 Albumin 3.3 g/dL (3.2-4.8) Calcium Level 8.3 mg/dL (8.7-10.4) L Total Protein 6.2 g/dL (5.7-8.2) LFT Test 03/21/25 11:29 Alanine Aminotransferase (ALT) 21 U/L (7-40) Alkaline Phosphatase 71 U/L (46-116) Aspartate Amino Transferase (AST) 37 U/L (13-40) Total Bilirubin 0.3 mg/dL (0.2-1.0) Urinalysis Test 03/16/25 08:28 Urine Color Yellow (Yellow) Urine Clarity Turbid (Clear) H Urine pH 5.5 (5.0-9.0) Urine Specific [place] 1.021 (1.001-1.035) Urine Protein 1+ (Negative) H Urine Ketones Trace (Negative) Urine Blood Negative /uL (Negative) Urine Nitrite Negative (Negative) Urine Bilirubin Negative (Negative) Urine Urobilinogen Normal mg/dL (Negative) Urine Leukocyte Esterase Negative /uL (Negative) Urine RBC 2 /hpf (0 - 4) Urine Microscopic WBC 2 /HPF (0-5) Urine Squamous Epithelial Cells None seen /hpf (<5) Urine Bacteria None seen /hpf (None Seen) Urine Hyaline Casts Many /lpf (0 - 2) Urine Granular Casts Many /lpf (0) Urine Mucus Few (None Seen) Urine Glucose Normal mg/dL (Normal) Microbiology Microbiology Date/Time Source Procedure Growth Status 03/17/25 00:15 Blood Blood Culture - Preliminary NO GROWTH AFTER 72 HOURS OF INCUBATION. Resulted 03/16/25 16:25 Nose MRSA Screen - Final Complete Labs and/or images reviewed: Labs reviewed by me, Image(s) reviewed by me Assessment/Plan Assessment/Plan Multiple strokes rule out cardioembolic source VERONIKA result pending, cardiology consult by Dr. Downey appreciated NSTEMI, likely type II secondary to above Hypertension Dyslipidemia Diabetes mellitus type 2 NILE on CKD COPD Anemia Patient is hospice revoked Patient is full code Time spent 50 minutes Advanced care planning time 20 mts Per patient, she was never on hospice Plan discussed with: Patient My Orders Orders - JAKOB MEJIA DO Procedure Category Date Status Time Discharge DISCHARGE 03/21/25 Transmitted 14:51 Date of Service: Mar 20, 2025 Billing Provider: JAKOB MEJIA DO Common Visit Codes: [id number] INP/OBS CARE(HIGH) JAKOB MEJIA DO Mar 21, 2025 21:25
--- NOTE | 2025-03-21 21:27 | DVHDS2 ---
Discharge Summary Date of Admission Mar 16, 2025 at 12:36 Date of Discharge: Mar 21, 2025 Labs/Diagnostic Data: Laboratory Results Test 03/21/25 11:29 03/18/25 08:36 03/17/25 09:32 03/17/25 02:23 White Blood Count 7.1 10^3/uL (4.4-10.8) Red Blood Count 3.09 10^6/uL (4.0-5.20) Hemoglobin 9.7 g/dL (12.2-16.2) Hematocrit 28.4 % (36.0-46.0) Mean Corpuscular Volume 91.8 fL (80.0-100.0) Mean Corpuscular Hemoglobin 31.5 pg (28.0-32.0) Mean Corpuscular Hemoglobin Concent 34.3 g/dL (32.0-36.0) Red Cell Distribution Width 15.1 % (11.8-14.3) Platelet Count 395 10^3/uL (140-450) Mean Platelet Volume 8.1 fL (6.9-10.8) Neutrophils (%) (Auto) 57.9 % (37.0-80.0) Lymphocytes (%) (Auto) 29.4 % (10.0-50.0) Monocytes (%) (Auto) 11.7 % (0.0-12.0) Eosinophils (%) (Auto) 0.5 % (0.0-7.0) Basophils (%) (Auto) 0.5 % (0.0-2.0) Neutrophils # (Auto) 4.1 10 ^3/uL (1.6-8.6) Lymphocytes # (Auto) 2.1 10 ^3/uL (0.4-5.4) Monocytes # (Auto) 0.8 10 ^3/uL (0-1.3) Eosinophils # (Auto) 0 10 ^3/uL (0-0.8) Basophils # (Auto) 0 10 ^3/uL (0-0.2) Nucleated Red Blood Cells 0.6 % Sodium Level 141 mmol/L (136-145) Potassium Level 2.8 mmol/L (3.5-5.1) Chloride Level 106 mmol/L (98-107) Carbon Dioxide Level 24 mmol/L (20-31) Anion Gap 11 (5-15) Blood Urea Nitrogen 10 mg/dL (9-23) Creatinine 1.28 mg/dL (0.550-1.02) Glomerular Filtration Rate Calc 41 mL/min (>90) BUN/Creatinine Ratio 7.8 (10.0-20.0) Serum Glucose 123 mg/dL (74-106) Calcium Level 8.3 mg/dL (8.7-10.4) Total Bilirubin 0.3 mg/dL (0.2-1.0) Aspartate Amino Transferase (AST) 37 U/L (13-40) Alanine Aminotransferase (ALT) 21 U/L (7-40) Alkaline Phosphatase 71 U/L (46-116) Total Protein 6.2 g/dL (5.7-8.2) Albumin 3.3 g/dL (3.2-4.8) B-Type Natriuretic Peptide 201.44 pg/mL (0-100) Troponin I High Sensitivity 66 ng/L (</=34) Thyroid Stimulating Hormone (TSH) 0.61 uIU/mL (0.55-4.78) Hemoglobin A1c 6.4 % A1C (<5.7) Magnesium Level 1.9 mg/dL (1.6-2.6) Test 03/16/25 08:28 03/16/25 05:51 Urine Color Yellow (Yellow) Urine Clarity Turbid (Clear) Urine pH 5.5 (5.0-9.0) Urine Specific [place] 1.021 (1.001-1.035) Urine Protein 1+ (Negative) Urine Ketones Trace (Negative) Urine Blood Negative /uL (Negative) Urine Nitrite Negative (Negative) Urine Bilirubin Negative (Negative) Urine Urobilinogen Normal mg/dL (Negative) Urine Leukocyte Esterase Negative /uL (Negative) Urine RBC 2 /hpf (0 - 4) Urine Microscopic WBC 2 /HPF (0-5) Urine Squamous Epithelial Cells None seen /hpf (<5) Urine Bacteria None seen /hpf (None Seen) Urine Hyaline Casts Many /lpf (0 - 2) Urine Granular Casts Many /lpf (0) Urine Mucus Few (None Seen) Urine Glucose Normal mg/dL (Normal) Lactic Acid Level 1.0 mmol/L (0.4-2.0) Triglycerides Level 89 mg/dL (< 150) Cholesterol Level 115 mg/dL (< 200) LDL Cholesterol 56 mg/dL (< 100) HDL Cholesterol 35 mg/dL (40-59) Other Laboratory Tests 03/21/25 11:29 Brief Hx & Hospital Course: Multiple strokes rule out cardioembolic source NSTEMI, likely type II secondary to above Hypertension Dyslipidemia Diabetes mellitus type 2 NILE on CKD COPD Anemia Condition at Discharge: Fair Final Diagnosis/Problems List CVA Discharge Disposition: Home Discharge Instruct/Medications Diet: Cardiac 2g Na,low cholest Activity: No Restrictions, As Tolerated Scheduled Amlodipine Besylate (Amlodipine Besylate), 1 TAB PO DAILY, (Reported) Atorvastatin Calcium (Atorvastatin Calcium), 40 MG PO HS Cephalexin (Keflex Capsule), 250 MG PO QID Clindamycin Hcl (Clindamycin Hcl), 450 MG PO TID Clindamycin Hcl (Clindamycin Hcl), 1 CAP PO TID Clindamycin Hcl (Clindamycin Hcl), 150 MG PO TID Clonidine Hydrochloride (Clonidine Hcl), 1 TAB PO BID, (Reported) Clopidogrel Bisulfate (Clopidogrel), 1 TAB PO DAILY, (Reported) Gabapentin (Gabapentin), 1 CAP PO BID, (Reported) Hydrochlorothiazide (Hydrochlorothiazide), 1 TAB PO DAILY, (Reported) Lisinopril (Lisinopril), 1 TAB PO DAILY, (Reported) Metoprolol Tartrate (Metoprolol Tartrate), 50 MG PO BID, (Reported) Metoprolol Tartrate (Lopressor Tablet), 50 MG PO BID Nifedipine (Nifedipine Er), 60 MG PO DAILY Sevelamer Carbonate (Renvela), 3 TAB PO TID, (Reported) Sulfamethoxazole W/Trimethopri (Bactrim Ds Tablet), 1 TAB PO BID Scheduled PRN Acetaminophen (Acetaminophen), 500 MG PO Q4HP PRN Ondansetron Odt 4MG Tab (Zofran Po), 4 MG PO Q6HP PRN Miscellaneous Medications Omeprazole (Prilosec Susp (For Gt)), 20 MG GT, (Reported) Discharge Statement: "Patient was advised to return to the ER or call 911 if any headaches, dizziness, shortness of breath, chest pain, abdominal pain, bleeding, fevers, or worsening of medical condition. Patient was counseled about treatment plan, medications, possible side effects, patientverbalized understanding. All questions were answered to the best of my ability. This discharge took greater then 30 minutes in planning, reviewing documentation, counseling the patient, and discussing with other team members." ASSESSMENT ASSESSMENT Assessment CVA Date of Service: Mar 21, 2025 Billing Provider: JAKOB MEJIA DO Common Visit Codes: [id number] DISCH DAY >30min JAKOB MEJIA DO Mar 21, 2025 21:26
[2025-03-22] VITALS (11 sets, daily range): BP systolic 142–170; BP diastolic 51–77; PULSE 72–95; RESP 16–20; TEMP 98–98.6; O2SAT 97–100
[2025-03-22 06:53] LABS: Hematocrit 27.7 % (36.0-46.0); Hemoglobin 9.5 g/dL (12.2-16.2); Mean Corpuscular Hemoglobin 31.5 pg (28.0-32.0); Mean Corpuscular Volume 91.4 fL (80.0-100.0); Nucleated Red Blood Cells % 0.3 %
[2025-03-22 07:15] LABS: Alanine Aminotransferase 25 U/L (7-40); Alkaline Phosphatase 89 U/L (46-116); Anion Gap 11 (5-15); BUN/Creatinine Ratio 5.1 (10.0-20.0); Carbon Dioxide 24 mmol/L (20-31); Sodium 144 mmol/L (136-145); Total Protein 6.1 g/dL (5.7-8.2)
[2025-03-22 07:16] LABS: Albumin 3.2 g/dL (3.2-4.8); Bilirubin, Total 0.4 mg/dL (0.2-1.0); Blood Urea Nitrogen 5 mg/dL (9-23); Calcium 8.2 mg/dL (8.7-10.4); Chloride 109 mmol/L (98-107); Glucose 112 mg/dL (74-106); Magnesium 1.4 mg/dL (1.6-2.6); Potassium 3.2 mmol/L (3.5-5.1)
[2025-03-22] MEDS: MAGNESIUM OXIDE 400 MG TAB PO ONE (09:10)
[2025-03-22] MEDS: POTASSIUM CHL 20 Meq TABLET PO ONE (09:11)
--- NOTE | 2025-03-22 11:45 | DVH ---
EXAM: CT ANGIO HEAD/NECK DATE OF SERVICE: 03/22/2025 10:45 AM ORDERING PHYSICIAN: JAKOB MEJIA REASON FOR EXAM: Rule out carotid stenosis TECHNIQUE: CTA of the brain and neck was performed after the administration of contrast . Axial imag es of the head and neck are obtained. Coronal and sagittal images were then reformatted for review. M IP reformats were obtained and reviewed. COMPARISON: CT head from 03/16/2025, MRI brain 03/17/2025 FINDINGS: FINDINGS: The right common carotid artery demonstrates moderate to severe calcification of the right carotid bu lb. Right internal carotid artery demonstrates greater than 80% stenosis of the proximal right ICA with e xtensive calcification disease.m Right middle cerebral artery demonstrates no high-grade stenosis. There is a 3 mm saccular aneurysm a rising off the right MCA distal M1 segment. The right anterior cerebral artery demonstrates no high-grade stenosis. The left common carotid artery demonstrates moderate calcification of the left carotid bulb. Left internal carotid artery demonstrates approximately 50% stenosis of the proximal left ICA just be yond the carotid bulb. The left middle cerebral artery demonstrates no high-grade stenosis. The left anterior cerebral artery demonstrates no high-grade stenosis. The right vertebral artery demonstrates no high-grade stenosis. The left vertebral artery demonstrates no high-grade stenosis. Basilar artery demonstrates no high-grade stenosis. The bilateral posterior cerebral arteries demonstrate no high-grade stenosis. Pulmonary emphysematous changes. Bilateral pulmonary tree-in-bud nodularity. Right maxillary sinus disease. IMPRESSION: Moderate to severe calcification of the right carotid bulb with greater than 80% stenosis of the prox imal right ICA. Moderate stenosis of the left carotid bulb with approximately 50% stenosis of the proximal left ICA. 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 Bilateral pulmonary tree-in-bud nodularity which can be seen with atypical infection, bronchiolitis. Pulmonary emphysematous changes.
[2025-03-22] MEDS: IOHEXOL 350 MG/ML 100ML IJ ONE (12:00)
--- NOTE | 2025-03-22 14:06 | DVHPN2 ---
Consult Progress Note Date Seen: Mar 22, 2025 Subjective Review of Systems: CVS:Normal, RESPIRATORY:Normal, NEURO:Normal Objective vital signs Vital Sign Date Time Temp Pulse Resp B/P (MAP) Pulse Ox O2 Delivery O2 Flow Rate FiO2 03/22/25 12:00 79 143/75 (97) 98 03/22/25 10:00 Nasal Cannula* 2 28 03/22/25 09:11 98.2 18 98.2 Total Intake and Output 03/21/25 03/21/25 03/22/25 15:00 23:00 07:00 Intake Total 50 ml 550 ml 800 ml Balance 50 ml 550 ml 800 ml medications Current Medications Medications Dose Ordered Sig/Ashley Route Start Time Stop Time Status Last Admin Dose Admin Sodium Chloride 1,000 ml @ 75 mls/hr [id number] IV 03/16/25 12:45 03/22/25 03:34 75 MLS/HR Acetaminophen/ Hydrocodone Bitart 1 tab Q4HP PRN PO 03/16/25 12:45 03/21/25 05:51 1 TAB Ondansetron HCl 4 mg Q4HP PRN IV 03/16/25 12:45 Docusate Sodium 100 mg BIDPRN PRN PO 03/16/25 12:45 Acetaminophen 650 mg Q6HP PRN PO 03/16/25 12:45 03/21/25 01:59 650 MG Ceftriaxone Sodium 50 ml @ 100 mls/hr DAILY@09 IV 03/17/25 09:00 03/22/25 09:10 100 MLS/HR Ipratropium [place] 0.5 mg Q6HPRN PRN NEB 03/16/25 18:00 03/21/25 01:12 0.5 MG Albuterol 2.5 mg Q6HPRN PRN NEB 03/16/25 18:00 03/21/25 01:13 2.5 MG Lorazepam 1 mg ONCE PRN IV 03/16/25 22:00 Atorvastatin Calcium 40 mg HS PO 03/17/25 22:00 03/21/25 21:13 40 MG Clopidogrel Bisulfate 75 mg DAILY PO 03/18/25 10:00 03/22/25 09:12 75 MG Enteral Nutritional Formula 240 ml TIDWM PO 03/18/25 18:00 03/22/25 12:00 240 ML Metoprolol Tartrate 50 mg BID PO 03/18/25 22:00 03/22/25 09:11 50 MG Clonidine HCl 0.1 mg Q4HP PRN PO 03/19/25 00:45 03/21/25 15:38 0.1 MG Nifedipine 60 mg DAILY PO 03/22/25 10:00 03/22/25 09:11 60 MG Examination: LUNGS:Normal, CVS:Normal, NEURO:Normal laboratory and microbiology Laboratory Tests 03/22/25 05:37 Test 03/22/25 05:37 Range/Units Serum Glucose 112 H 74-106 mg/dL Problem List/Assessment/Plan Problem List/Assessment/Plan Multiple strokes with severe right ICA stenosis NSTEMI, likely type II secondary to above Hypertension Dyslipidemia Diabetes mellitus type 2 NILE on CKD COPD Anemia Plan/Recommendation (Dr. Downey) * Twelve lead electrocardiogram: Normal sinus rhythm with PAC * phototypesetting equipment monitor reviewed: Sinus tachycardia events with no tachyarrhythmias present * Bilateral carotid duplex: Greater than 50-70% stenosis of the left ICA and in between 50-69% stenosis of the right ICA * CT angio head/neck: [id number] calcification of the right carotid bulb with greater than 80% stenosis of the proximal right ICA. Moderate stenosis of the left carotid bulb with a proximally 50% stenosis of the proximal left ICA. * Transesophageal echocardiogram: LVEF at 65% with normal RV function. A bubble study performed showing no crossover into the left chambers. No evidence for atrial septal defect. No ventricular septal defect and/or other pathology. No evidence for endocarditis or vegetations. Plan: The patient underwent a head/neck CT angio revealing moderate to severe stenosis of the right ICA for which she was offered a carotid angiogram. Findings were discussed with the patient and son at bedside (Esteban Mark) whom will discuss among themselves before making an informed decision. In the meantime, continue single-antiplatelet therapy and lipid lowering agent. The patient can also benefit from an outpatient event monitor to rule out tachyarrhythmias. Further orders per clinical course. Thank you for allowing us to participate in this patient's care. Please call if you have any questions or concerns. This medical document was created using an electronic medical record system with voice recognition software and computerized dictation system. Although this document has been carefully reviewed, there might still be some phonetic and typographical errors. Occasional wrong-word or ``sound-alike substitutions may have occurred due to the inherent limitations of voice recognition software. These areas are purely typographical due to imperfections of the software programs and do not reflect any compromise in the patient's medical care. Please read the chart carefully and recognize, using context, where these substitutions have occurred. Plan discussed with: Patient, Son, Other Dietary Evaluation Review Comments: 1. 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 Nepro 240ml oral supplementation TID is encouraged if pt continues refusing food. 2. If EN preferd, consider TF Nepro@ 25ml/hr (49g Protein, 1062kcal 436ml free water. Flush with allowed H2O q6r. 4. Advance to CCHO-60 Renal standard diet if HD initiated. 5. consider TPN per pharmacy meeting her daily protein and energy requirement if GI unaccessible. Expected Outcomes/Goals: prevent uremic syndrome, pervent wt loss, controlled DM Date of Service: Mar 22, 2025 Billing Provider: JOBY MARISCAL Cardiology Common Codes: [id number] HOSP CARE(High JOBY MARISCAL Mar 22, 2025 14:06
--- NOTE | 2025-03-22 14:20 | MEDREC ---
[facility] ASP Intervention Section I [facility] ASP Intervention: IV to PO conversion (PLEASE CONSIDER IV TO PO CONVERSION (PT IS TOLERATING FOOD AND ORAL MEDICATIONS ). ) MAJOR BURTON PHARMACIST Mar 22, 2025 14:20
--- NOTE | 2025-03-22 20:27 | DVHPN2 ---
Progress Note - Dictate Date Seen: Mar 22, 2025 Has the PT tested + for MRSA If YES, has PT been informed?: No Medical Necessity Reason Pt with a Central, PICC or Fol: Yes The following are medically ne: Rivera Catheter Subjective Patient was seen and evaluated in follow up. No acute events overnight. Patient is awake and alert. No SOB, or pain. Family and sitter at bedside. AM labs are remarkable for Mg 1.4. K 3.2. 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 vital signs Vital Sign Date Time Temp Pulse Resp B/P (MAP) Pulse Ox O2 Delivery O2 Flow Rate FiO2 03/22/25 17:14 163/71 03/22/25 16:58 98.2 95 20 98 98.2 03/22/25 10:00 Nasal Cannula* 2 28 Total Intake and Output 03/21/25 03/21/25 03/22/25 15:00 23:00 07:00 Intake Total 50 ml 550 ml 800 ml Balance 50 ml 550 ml 800 ml medications Current Medications Medications Dose Ordered Sig/Ashley Route Start Time Stop Time Status Last Admin Dose Admin Sodium Chloride 1,000 ml @ 75 mls/hr [id number] IV 03/16/25 12:45 03/22/25 03:34 75 MLS/HR Acetaminophen/ Hydrocodone Bitart 1 tab Q4HP PRN PO 03/16/25 12:45 03/21/25 05:51 1 TAB Ondansetron HCl 4 mg Q4HP PRN IV 03/16/25 12:45 Docusate Sodium 100 mg BIDPRN PRN PO 03/16/25 12:45 Acetaminophen 650 mg Q6HP PRN PO 03/16/25 12:45 03/21/25 01:59 650 MG Ceftriaxone Sodium 50 ml @ 100 mls/hr DAILY@09 IV 03/17/25 09:00 03/22/25 09:10 100 MLS/HR Ipratropium [place] 0.5 mg Q6HPRN PRN NEB 03/16/25 18:00 03/21/25 01:12 0.5 MG Albuterol 2.5 mg Q6HPRN PRN NEB 03/16/25 18:00 03/21/25 01:13 2.5 MG Lorazepam 1 mg ONCE PRN IV 03/16/25 22:00 Atorvastatin Calcium 40 mg HS PO 03/17/25 22:00 03/21/25 21:13 40 MG Clopidogrel Bisulfate 75 mg DAILY PO 03/18/25 10:00 03/22/25 09:12 75 MG Enteral Nutritional Formula 240 ml TIDWM PO 03/18/25 18:00 03/22/25 17:37 240 ML Metoprolol Tartrate 50 mg BID PO 03/18/25 22:00 03/22/25 09:11 50 MG Clonidine HCl 0.1 mg Q4HP PRN PO 03/19/25 00:45 03/22/25 16:14 0.1 MG Nifedipine 60 mg DAILY PO 03/22/25 10:00 03/22/25 09:11 60 MG objective Vitals and nursing notes reviewed. General Appearance: In no acute distress. HEENT: Atraumatic, PERRLA Cardiovascular: Regular rate, Normal S1, Normal S2 Pulmonary: Normal effort. Clear breath sounds Abdominal: Normal bowel sounds, Soft, No tenderness Extremities: No clubbing, No cyanosis, No edema, Normal pulses, No tenderness/swelling Skin: No rashes, No breakdown, No significant lesion Neuro: Other (Difficulty moving left arm, minimal ambulation at baseline) Psych/Mental Status: A&O laboratory and microbiology Laboratory Tests 03/22/25 05:37 Test 03/22/25 05:37 Range/Units Serum Glucose 112 H 74-106 mg/dL Problem List Multiple strokes NSTEMI, likely type II secondary to above Hypertension Dyslipidemia Diabetes mellitus type 2 NILE on CKD COPD Anemia Assessment/Plan Agree with current supportive medical care. Cardiology following. SW consulted for [facility]. Monitor renal function. Magnesium and Potassium replacement. IVFs with NS at 75 mL/hr. Intake/Output monitoring with Rivera. Optimization of BP with IV Hydralazine. Home medications resumed as ordered. Nutritional support. Pain management prn. Additional plan as per the hospital course. Dietary Evaluation Review Comments: 1. 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 Nepro 240ml oral supplementation TID is encouraged if pt continues refusing food. 2. If EN preferd, consider TF Nepro@ 25ml/hr (49g Protein, 1062kcal 436ml free water. Flush with allowed H2O q6r. 4. Advance to [facility]-60 Renal standard diet if HD initiated. 5. consider TPN per pharmacy meeting her daily protein and energy requirement if GI unaccessible. Expected Outcomes/Goals: prevent uremic syndrome, pervent wt loss, controlled DM Plan discussed with: Patient, Other (RN) RIAN LA DO Mar 22, 2025 20:26
[2025-03-23] VITALS (8 sets, daily range): BP systolic 149–176; BP diastolic 69–93; PULSE 62–89; RESP 17–20; TEMP 97.9–98.2; O2SAT 95–100
--- NOTE | 2025-03-23 09:25 | DVHPN2 ---
Progress Note - Dictate Date Seen: Mar 23, 2025 Has the PT tested + for MRSA If YES, has PT been informed?: No Medical Necessity Reason Pt with a Central, PICC or Fol: Yes The following are medically ne: Rivera Catheter Subjective Ms. Mark is a 89 years old right-handed female with a history of hypertension, diabetes, chronic kidney failure, COPD, glaucoma, the patient was brought to the [facility] on 03/16/2025 with a chief complaint of general weakness, altered mental status. I have seen and examined the patient, I have talked to her nurse, and sitter. She is doing better, awake, oriented to person, place, reasonable social skills. No new complaints, wants to go home Blood culture, 03/16/25: No growth Blood culture, 03/17/2025: Urinalysis, 03/16/2025: WBC: 2, urine leukocyte esterase: Negative WBC/HB/PLT/MCV, 03/16/2025: 9.8/9.5/353/95.1 BUN/CR, 03/16/2025: 20/3.36 GFR, 03/16/2025: 13 HGB A1c, 03/17/2025: 6.4 TG/HDL/LDL/HDL, 03/16/2025: 89/115/56/35 TSH, 03/17/2025: 0.61 VERONIKA 03/17/2025: Technically good study. Sinus rhythm. Normal chamber sizes. Mild concentric LVH. Valves appear to be structurally normal. Mild thickening of the right coronary cusp. No stenosis present. The mitral and tricuspid are within normal limits. The pulmonic is normal. Left ventricular systolic function is preserved at 65% with normal RV function. There is mild TR. No significant aortic or mitral insufficiency. No pulmonic insufficiency. No pericardial effusion masses or vegetations discernible. A bubble study performed showing no crossover into the left chambers. No evidence for atrial septal defect. No ventricular septal defect and/or other pathology. No evidence for endocarditis or vegetations. Carotid Doppler, 03/17/2025: 1. Greater than 50%/70% stenosis of the left ICA. 2. Between 50-69% stenosis of the right ICA. Chest x-ray 03/16/25: Increased interstitial prominence. This may represent pulmonary vascular congestion and/or viral pneumonia CT head, 03/16/25: No acute intracranial abnormality (Multiple remote lacunar infarcts throughout both basal ganglia and both anguiano radiata.) CTA neck, head 03/22/2025: Moderate to severe calcification of the right carotid bulb with greater than 80% stenosis of the proximal right ICA. Moderate stenosis of the left carotid bulb with approximately 50% stenosis of the proximal left ICA. 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 Bilateral pulmonary tree-in-bud nodularity which can be seen with atypical infection, bronchiolitis. Pulmonary emphysematous changes. MRI head, 03/17/2025: No acute cerebrovascular ischemia. Mild chronic microvascular ischemic changes. Mild global cerebral volume loss. vital signs Vital Sign Date Time Temp Pulse Resp B/P (MAP) Pulse Ox O2 Delivery O2 Flow Rate FiO2 03/23/25 08:00 Nasal Cannula* 2 28 03/23/25 07:25 149/89 03/23/25 05:00 98.0 83 20 95 98.0 Total Intake and Output 03/22/25 03/22/25 03/23/25 15:00 23:00 07:00 Intake Total 50 ml 450 ml 400 ml Balance 50 ml 450 ml 400 ml medications Current Medications Medications Dose Ordered Sig/Ashley Route Start Time Stop Time Status Last Admin Dose Admin Sodium Chloride 1,000 ml @ 75 mls/hr [id number] IV 03/16/25 12:45 03/22/25 03:34 75 MLS/HR Acetaminophen/ Hydrocodone Bitart 1 tab Q4HP PRN PO 03/16/25 12:45 03/23/25 02:17 1 TAB Ondansetron HCl 4 mg Q4HP PRN IV 03/16/25 12:45 Docusate Sodium 100 mg BIDPRN PRN PO 03/16/25 12:45 Acetaminophen 650 mg Q6HP PRN PO 03/16/25 12:45 03/21/25 01:59 650 MG Ceftriaxone Sodium 50 ml @ 100 mls/hr DAILY@09 IV 03/17/25 09:00 03/22/25 09:10 100 MLS/HR Lorazepam 1 mg ONCE PRN IV 03/16/25 22:00 Atorvastatin Calcium 40 mg HS PO 03/17/25 22:00 03/22/25 22:17 40 MG Clopidogrel Bisulfate 75 mg DAILY PO 03/18/25 10:00 03/22/25 09:12 75 MG Enteral Nutritional Formula 240 ml TIDWM PO 03/18/25 18:00 03/22/25 17:37 240 ML Metoprolol Tartrate 50 mg BID PO 03/18/25 22:00 03/22/25 22:36 50 MG Clonidine HCl 0.1 mg Q4HP PRN PO 03/19/25 00:45 03/23/25 06:25 0.1 MG Nifedipine 60 mg DAILY PO 03/22/25 10:00 03/22/25 09:11 60 MG objective General: the patient is well developed and nourished. No acute distress. MENTAL STATUS: Subjective SPEECH, LANGUAGE, HIGHER CORTICAL FUNCTION: no aphasia or dysathria. CRANIAL NERVES: Pupils are equal, round and reactive. EOMs full and conjugate. Facial sensation intact in all three divisions bilaterally. Mandibular strength intact. Facial muscles symmetrical and strength intact. Tongue midline. No fasciculations or atrophy. SENSATION: Sensation to touch and pinprick is normal. MOTOR: Normal tone in the upper and lower extremity. Normal muscle bulk. No fasciculations. No abnormal movements or posturing. He moves the arms and legs REFLEXES: Deep tendon reflexes are symmetrical. No pathological reflexes. 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 Although this document has been carefully reviewed, there may still be some phonetic and typographical errors. These areas are purely typographical due to imperfections of the software programs, and do not reflect any compromise in the patient's medical care. Prognosis poor Dietary Evaluation Review Comments: 1. 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 Nepro 240ml oral supplementation TID is encouraged if pt continues refusing food. 2. If EN preferd, consider TF Nepro@ 25ml/hr (49g Protein, 1062kcal 436ml free water. Flush with allowed H2O q6r. 4. Advance to [facility]-60 Renal standard diet if HD initiated. 5. consider TPN per pharmacy meeting her daily protein and energy requirement if GI unaccessible. Expected Outcomes/Goals: prevent uremic syndrome, pervent wt loss, controlled DM Plan discussed with: Other Total Time (mins): 35 MARIA R MAE MD Mar 23, 2025 09:25
--- NOTE | 2025-03-23 09:39 | DVHPN2 ---
Consult Progress Note Date Seen: Mar 23, 2025 Subjective Review of Systems: CVS:Normal, RESPIRATORY:Normal, NEURO:Normal Objective vital signs Vital Sign Date Time Temp Pulse Resp B/P (MAP) Pulse Ox O2 Delivery O2 Flow Rate FiO2 03/23/25 08:00 Nasal Cannula* 2 03/23/25 07:25 149/89 03/23/25 05:00 98.0 83 20 95 98.0 Total Intake and Output 03/22/25 03/22/25 03/23/25 15:00 23:00 07:00 Intake Total 50 ml 450 ml 400 ml Balance 50 ml 450 ml 400 ml medications Current Medications Medications Dose Ordered Sig/Ashley Route Start Time Stop Time Status Last Admin Dose Admin Sodium Chloride 1,000 ml @ 75 mls/hr [id number] IV 03/16/25 12:45 03/22/25 03:34 75 MLS/HR Acetaminophen/ Hydrocodone Bitart 1 tab Q4HP PRN PO 03/16/25 12:45 03/23/25 02:17 1 TAB Ondansetron HCl 4 mg Q4HP PRN IV 03/16/25 12:45 Docusate Sodium 100 mg BIDPRN PRN PO 03/16/25 12:45 Acetaminophen 650 mg Q6HP PRN PO 03/16/25 12:45 03/21/25 01:59 650 MG Ceftriaxone Sodium 50 ml @ 100 mls/hr DAILY@09 IV 03/17/25 09:00 03/22/25 09:10 100 MLS/HR Lorazepam 1 mg ONCE PRN IV 03/16/25 22:00 Atorvastatin Calcium 40 mg HS PO 03/17/25 22:00 03/22/25 22:17 40 MG Clopidogrel Bisulfate 75 mg DAILY PO 03/18/25 10:00 03/22/25 09:12 75 MG Enteral Nutritional Formula 240 ml TIDWM PO 03/18/25 18:00 03/22/25 17:37 240 ML Metoprolol Tartrate 50 mg BID PO 03/18/25 22:00 03/22/25 22:36 50 MG Clonidine HCl 0.1 mg Q4HP PRN PO 03/19/25 00:45 03/23/25 06:25 0.1 MG Nifedipine 60 mg DAILY PO 03/22/25 10:00 03/22/25 09:11 60 MG Examination: GENERAL:Abnormal (Anxious), LUNGS:Normal, CVS:Normal, NEURO:Normal laboratory and microbiology Laboratory Tests 03/22/25 05:37 Test 03/22/25 05:37 Range/Units Serum Glucose 112 H 74-106 mg/dL Problem List/Assessment/Plan Problem List/Assessment/Plan Multiple strokes with severe right ICA stenosis NSTEMI, likely type II secondary to above Hypertension Dyslipidemia Diabetes mellitus type 2 NILE on CKD COPD Anemia Plan/Recommendation (Dr. Downey) * Twelve lead electrocardiogram: Normal sinus rhythm with PAC * radiation monitor reviewed: Sinus tachycardia events with no tachyarrhythmias present * Bilateral carotid duplex: Greater than 50-70% stenosis of the left ICA and in between 50-69% stenosis of the right ICA * CT angio head/neck: [id number] calcification of the right carotid bulb with greater than 80% stenosis of the proximal right ICA. Moderate stenosis of the left carotid bulb with a proximally 50% stenosis of the proximal left ICA. * Transesophageal echocardiogram: LVEF at 65% with normal RV function. A bubble study performed showing no crossover into the left chambers. No evidence for atrial septal defect. No ventricular septal defect and/or other pathology. No evidence for endocarditis or vegetations. Plan: Case discussed in full detail with Dr. Downey. The patient underwent a head/neck CT angio revealing moderate to severe stenosis of the right ICA for which she was offered a carotid angiogram. The patient and son at bedside (Esteban Mark) agreed to continue with invasive cardiac work-up and are aware of risks and benefits with all questions answered. In the meantime, continue single-antiplatelet therapy, lipid lowering agent, and blood pressure control. Replete electrolytes as necessary. The patient can benefit from an outpatient event monitor to rule out tachyarrhythmias. Further orders per clinical course. Thank you for allowing us to participate in this patient's care. Please call if you have any questions or concerns. This medical document was created using an electronic medical record system with voice recognition software and computerized dictation system. Although this document has been carefully reviewed, there might still be some phonetic and typographical errors. Occasional wrong-word or ``sound-alike substitutions may have occurred due to the inherent limitations of voice recognition software. These areas are purely typographical due to imperfections of the software programs and do not reflect any compromise in the patient's medical care. Please read the chart carefully and recognize, using context, where these substitutions have occurred. Plan discussed with: Patient, Son, Other Dietary Evaluation Review Comments: 1. Poor appetite d/t [facility] CKD4, [facility] with 50g protein restriction is recommended. Nepro 240ml oral supplementation TID is encouraged if pt continues refusing food. 2. If EN preferd, consider TF Nepro@ 25ml/hr (49g Protein, 1062kcal 436ml free water. Flush with allowed H2O q6r. [facility]. [facility] diet if HD initiated. 5. consider TPN per pharmacy meeting her daily protein and energy requirement if GI unaccessible. Expected Outcomes/Goals: prevent uremic syndrome, pervent wt loss, controlled DM Date of Service: Mar 23, 2025 Billing Provider: JOBY MARISCAL Cardiology Common Codes: 81382-[id number] HOSP CARE(High JOBY MARISCAL Mar 23, 2025 09:39
[2025-03-23] MEDS: MAGNESIUM SULFATE 1GM/100ML 100 ML IV SCH (11:36)
[2025-03-23 12:00] LABS: Carbon Dioxide 26 mmol/L (20-31)
[2025-03-23 12:01] LABS: Calcium 8.8 mg/dL (8.7-10.4); Potassium 3.9 mmol/L (3.5-5.1); Sodium 144 mmol/L (136-145)
[2025-03-23 12:02] LABS: Anion Gap 8 (5-15); Chloride 110 mmol/L (98-107)
[2025-03-23 12:06] LABS: BUN/Creatinine Ratio 6.4 (10.0-20.0); Glucose 84 mg/dL (74-106)
[2025-03-23 12:08] LABS: Blood Urea Nitrogen 8 mg/dL (9-23)
--- NOTE | 2025-03-23 19:26 | DVHPN2 ---
Progress Note - Dictate Date Seen: Mar 23, 2025 Has the PT tested + for MRSA If YES, has PT been informed?: No Medical Necessity Reason Pt with a Central, PICC or Fol: Yes The following are medically ne: Rivera Catheter Subjective Patient was seen and evaluated in follow up. No acute events overnight. Patient is awake and alert x2. Noted with periods of confusion. Sitter at bedside. Planned for carotid angiogram tomorrow. Renal function labs are stable. vital signs Vital Sign Date Time Temp Pulse Resp B/P (MAP) Pulse Ox O2 Delivery O2 Flow Rate FiO2 03/23/25 18:33 147/76 03/23/25 16:31 98.0 81 18 100 98.0 03/23/25 10:00 Nasal Cannula 2.0 03/23/25 10:00 28 Total Intake and Output 03/22/25 03/22/25 03/23/25 15:00 23:00 07:00 Intake Total 50 ml 450 ml 400 ml Balance 50 ml 450 ml 400 ml medications Current Medications Medications Dose Ordered Sig/Ashley Route Start Time Stop Time Status Last Admin Dose Admin Sodium Chloride 1,000 ml @ 75 mls/hr [id number] IV 03/16/25 12:45 03/22/25 03:34 75 MLS/HR Acetaminophen/ Hydrocodone Bitart 1 tab Q4HP PRN PO 03/16/25 12:45 03/23/25 02:17 1 TAB Ondansetron HCl 4 mg Q4HP PRN IV 03/16/25 12:45 Docusate Sodium 100 mg BIDPRN PRN PO 03/16/25 12:45 Acetaminophen 650 mg Q6HP PRN PO 03/16/25 12:45 03/21/25 01:59 650 MG Ceftriaxone Sodium 50 ml @ 100 mls/hr DAILY@09 IV 03/17/25 09:00 03/23/25 09:22 100 MLS/HR Lorazepam 1 mg ONCE PRN IV 03/16/25 22:00 Atorvastatin Calcium 40 mg HS PO 03/17/25 22:00 03/22/25 22:17 40 MG Clopidogrel Bisulfate 75 mg DAILY PO 03/18/25 10:00 03/23/25 09:22 75 MG Enteral Nutritional Formula 240 ml TIDWM PO 03/18/25 18:00 03/23/25 18:17 240 ML Metoprolol Tartrate 50 mg BID PO 03/18/25 22:00 03/23/25 09:23 50 MG Clonidine HCl 0.1 mg Q4HP PRN PO 03/19/25 00:45 03/23/25 17:24 0.1 MG Nifedipine 90 mg DAILY PO 03/24/25 10:00 objective Vitals and nursing notes reviewed. General Appearance: In no acute distress. HEENT: Atraumatic, PERRLA Cardiovascular: Regular rate, Normal S1, Normal S2 Pulmonary: Normal effort. Clear breath sounds Abdominal: Normal bowel sounds, Soft, No tenderness Extremities: No clubbing, No cyanosis, No edema, Normal pulses, No tenderness/swelling Skin: No rashes, No breakdown, No significant lesion Neuro: Other (Difficulty moving left arm, minimal ambulation at baseline) Psych/Mental Status: A&O laboratory and microbiology Laboratory Tests 03/23/25 11:07 03/22/25 05:37 Test 03/23/25 11:07 Range/Units Serum Glucose 84 74-106 mg/dL Problem List Multiple strokes NSTEMI, likely type II secondary to above Hypertension Dyslipidemia Diabetes mellitus type 2 NILE on CKD COPD Anemia Assessment/Plan Agree with current supportive medical care. Cardiology following. Planned for carotid angiogram tomorrow. NPO. Monitor renal function. Magnesium and Potassium replacement. IVFs with NS at 75 mL/hr. Intake/Output monitoring with Rivera. Optimization of BP with IV Hydralazine. Home medications resumed as ordered. Pain management prn. Additional plan as per the hospital course. Dietary Evaluation Review Comments: 1. 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 Nepro 240ml oral supplementation TID is encouraged if pt continues refusing food. 2. If EN preferd, consider TF Nepro@ 25ml/hr (49g Protein, 1062kcal 436ml free water. Flush with allowed H2O q6r. [facility]. [facility] diet if HD initiated. 5. consider TPN per pharmacy meeting her daily protein and energy requirement if GI unaccessible. Expected Outcomes/Goals: prevent uremic syndrome, pervent wt loss, controlled DM Plan discussed with: Patient, Other (RN) RIAN LA DO Mar 23, 2025 19:26
[2025-03-24] VITALS (13 sets, daily range): BP systolic 128–175; BP diastolic 57–92; PULSE 75–89; RESP 16–22; TEMP 97.4–98.3; O2SAT 94–98
[2025-03-24 07:03] LABS: Hematocrit 29.5 % (36.0-46.0); Hemoglobin 10.1 g/dL (12.2-16.2); Mean Corpuscular Hemoglobin 31.4 pg (28.0-32.0); Mean Corpuscular Volume 92.0 fL (80.0-100.0); Nucleated Red Blood Cells % 0.5 %
[2025-03-24 07:05] LABS: Anion Gap 11 (5-15); Carbon Dioxide 24 mmol/L (20-31); Potassium 3.8 mmol/L (3.5-5.1); Sodium 143 mmol/L (136-145)
[2025-03-24 07:07] LABS: Calcium 8.9 mg/dL (8.7-10.4)
[2025-03-24 07:12] LABS: BUN/Creatinine Ratio 6.6 (10.0-20.0); Blood Urea Nitrogen 9 mg/dL (9-23); Magnesium 2.2 mg/dL (1.6-2.6)
[2025-03-24 07:14] LABS: Chloride 108 mmol/L (98-107); Glucose 121 mg/dL (74-106)
[2025-03-24 07:27] LABS: INR 1.08 (0.9-1.15); Partial Thromboplastin Time 27.6 SEC (24.5-34.5); Prothrombin Time 11.4 sec (9.3-11.8)
[2025-03-24] MEDS: ANGIOMAX 250 MG VIAL IV ONE (10:48)
[2025-03-24] MEDS: LIDOCAINE 2%HCL (LOCAL ANESTH.) INJ 20ML MDV ONE ×2 (10:49→11:38)
[2025-03-24] MEDS: GLYCOPYRROLATE 0.2 MG/ML 1ML VIAL ONE (10:49)
[2025-03-24] MEDS: SODIUM CHL 0.9% 0 ML ONE (10:49)
[2025-03-24] MEDS: PHENYLEPHRINE HCL 10 MG/ML VL ONE (10:49)
--- NOTE | 2025-03-24 10:51 | MEDREC ---
[facility] ASP Intervention Section I [facility] ASP Intervention: Review courses of therapy (Patient received ceftriaxone for 8 days, afebrile x7 days, WBC WNL x 8 days, cultures finalized with no growth, may consider d/cing antibiotics if/when clinically appropriate.) MITCHELL VARGAS [facility] RESIDENT Mar 24, 2025 10:51
[2025-03-24] MEDS: IODIXANOL 320MG/ML 100ML BTL IV ONE (10:55)
--- NOTE | 2025-03-24 11:44 | DVHOP2 ---
Operative Report - 2 Report Details Date: 03/24/25 Preop Diagnosis: CVA Postop Diagnosis: CVA Surgeon: Esau Downey MD Anesthesiologist: Conscious sedation Anesthesia: Mac, Local Consent: The patient was informed of the risks and benefits of the procedure. These include but are not limited to complications of anesthesia, postoperative infection, incomplete relief of symptoms, recurrence of symptoms, damage to blood vessels, nerves and tendons, deep venous thrombosis, pulmonary embolism and possible need for repeat surgery in the future. Complications: No complications Findings: Right axillary femoral bypass graft. Severe stenosis of the left common femoral . Indications for Surgery: CVA Name of Procedure Performed Attempted cannulation of femoral artery to evaluate carotid stenosis. Procedure Details Procedure Details: Prior local anesthesia with 2% lidocaine to the right groin and full informed consent obtained a six Norwegian sheath was placed into the femoral artery however it was noted that the patient had a right axillary femoral bypass. We did not enter the actual graft beyond the origin. We then attempted a left femoral artery cannulation however there was a severe stenosis noted on ultrasound guidance. The procedure was aborted. The angiographic evaluation of the femorals and or carotids was not completed. Condition Fair Disposition Still a Patient Date of Service: Mar 24, 2025 Billing Provider: ESAU DOWNEY Sr., MD Cardiology Common Codes: [id number] INP/OBS CARE (High) Peripheral Procedures Codes: [id number] RAD SUP/INTERP (Angiography of right femoral artery and distal axillary femoral bypass graft.) ESAU DOWNEY Sr., MD Mar 24, 2025 11:44
--- NOTE | 2025-03-24 13:09 | DVHPN2 ---
Consult Progress Note Date Seen: Mar 24, 2025 Subjective Review of Systems: CVS:Normal, RESPIRATORY:Normal, NEURO:Normal Objective vital signs Vital Sign Date Time Temp Pulse Resp B/P (MAP) Pulse Ox O2 Delivery O2 Flow Rate FiO2 03/24/25 10:07 74 166/73 03/24/25 10:00 95 Room Air 0.0 03/24/25 10:00 21 03/24/25 09:00 98.0 16 98.0 Total Intake and Output 03/23/25 03/23/25 03/24/25 15:00 23:00 07:00 Intake Total 250 ml 600 ml 280 ml Balance 250 ml 600 ml 280 ml medications Current Medications Medications Dose Ordered Sig/Ashley Route Start Time Stop Time Status Last Admin Dose Admin Sodium Chloride 1,000 ml @ 75 mls/hr [id number] IV 03/16/25 12:45 03/24/25 10:13 75 MLS/HR Acetaminophen/ Hydrocodone Bitart 1 tab Q4HP PRN PO 03/16/25 12:45 03/23/25 23:50 1 TAB Ondansetron HCl 4 mg Q4HP PRN IV 03/16/25 12:45 Docusate Sodium 100 mg BIDPRN PRN PO 03/16/25 12:45 Acetaminophen 650 mg Q6HP PRN PO 03/16/25 12:45 03/21/25 01:59 650 MG Ceftriaxone Sodium 50 ml @ 100 mls/hr DAILY@09 IV 03/17/25 09:00 03/23/25 09:22 100 MLS/HR Lorazepam 1 mg ONCE PRN IV 03/16/25 22:00 Atorvastatin Calcium 40 mg HS PO 03/17/25 22:00 03/23/25 21:12 40 MG Clopidogrel Bisulfate 75 mg DAILY PO 03/18/25 10:00 03/24/25 08:50 75 MG Enteral Nutritional Formula 240 ml TIDWM PO 03/18/25 18:00 03/23/25 18:17 240 ML Metoprolol Tartrate 50 mg BID PO 03/18/25 22:00 03/24/25 08:50 50 MG Clonidine HCl 0.1 mg Q4HP PRN PO 03/19/25 00:45 03/24/25 06:08 0.1 MG Nifedipine 90 mg DAILY PO 03/24/25 10:00 03/24/25 08:50 90 MG Examination: GENERAL:Abnormal (Chronically ill), LUNGS:Normal, CVS:Normal, NEURO:Normal laboratory and microbiology Laboratory Tests 03/24/25 05:19 Test 03/24/25 05:19 Range/Units Serum Glucose 121 H 74-106 mg/dL Problem List/Assessment/Plan Problem List/Assessment/Plan Multiple strokes with severe right ICA stenosis NSTEMI, likely type II secondary to above Hypertension Dyslipidemia Diabetes mellitus type 2 NILE on CKD COPD Anemia Plan/Recommendation (Dr. Downey) * Twelve lead electrocardiogram: Normal sinus rhythm with PAC * monitor car operator reviewed: Sinus tachycardia events with no tachyarrhythmias present * Bilateral carotid duplex: Greater than 50-70% stenosis of the left ICA and in between 50-69% stenosis of the right ICA * CT angio head/neck: Thusofng-ax-hqowwz calcification of the right carotid bulb with greater than 80% stenosis of the proximal right ICA. Moderate stenosis of the left carotid bulb with a proximally 50% stenosis of the proximal left ICA. * Transesophageal echocardiogram: LVEF at 65% with normal RV function. A bubble study performed showing no crossover into the left chambers. No evidence for atrial septal defect. No ventricular septal defect and/or other pathology. No evidence for endocarditis or vegetations. * Attempted cannulation of the femoral artery to evaluate carotid stenosis: patient had a right axillary femoral bypass. We did not enter the actual graft beyond the origin. We then attempted a left femoral artery cannulation however there was a severe stenosis noted on ultrasound guidance. The procedure was aborted. The angiographic evaluation of the femorals and carotids was not completed. Plan: Case discussed in full detail with Dr. Downey. The patient underwent a head/neck CT angio revealing moderate to severe stenosis of the right ICA for which she was offered a carotid angiogram which was unsuccessful secondary to poor vascular access. We will defer evaluation to Vascular specialist for further care. In the meantime, continue single-antiplatelet therapy, lipid lowering agent, and blood pressure control. Replete electrolytes as necessary. The patient can benefit from an outpatient event monitor to rule out tachyarrhythmias. Signing off at this time. Kindly call with any questions or concerns. Thank you for allowing us to participate in this patient's care. This medical document was created using an electronic medical record system with voice recognition software and computerized dictation system. Although this document has been carefully reviewed, there might still be some phonetic and typographical errors. Occasional wrong-word or ``sound-alike substitutions may have occurred due to the inherent limitations of voice recognition software. These areas are purely typographical due to imperfections of the software programs and do not reflect any compromise in the patient's medical care. Please read the chart carefully and recognize, using context, where these substitutions have occurred. Plan discussed with: Patient, Son, Other Dietary Evaluation Review Comments: 1. 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 Nepro 240ml oral supplementation TID is encouraged if pt continues refusing food. 2. If EN preferd, consider TF Nepro@ 25ml/hr (49g Protein, 1062kcal 436ml free water. Flush with allowed H2O q6r. [facility]. [facility] if HD initiated. 5. consider TPN per pharmacy meeting her daily protein and energy requirement if GI unaccessible. Expected Outcomes/Goals: prevent uremic syndrome, pervent wt loss, controlled DM Date of Service: Mar 24, 2025 Billing Provider: JOBY MARISCAL Cardiology Common Codes: [id number] HOSP CARE(High JOBY MARISCAL Mar 24, 2025 13:09
--- NOTE | 2025-03-24 19:17 | DVHPN2 ---
Progress Note - Dictate Date Seen: Mar 24, 2025 Has the PT tested + for MRSA If YES, has PT been informed?: No Medical Necessity Reason Pt with a Central, PICC or Fol: Yes The following are medically ne: Rivera Catheter Subjective Patient was seen and evaluated in follow up. No acute events overnight. Patient is awake and alert x person. Sitter at bedside. Patient underwent a head/neck CT angio revealing moderate to severe stenosis of the right ICA for which she was offered a carotid angiogram which was unsuccessful secondary to poor vascular access. Creatinine 1.36 with BUN of 9. K wnl. vital signs Vital Sign Date Time Temp Pulse Resp B/P (MAP) Pulse Ox O2 Delivery O2 Flow Rate FiO2 03/24/25 17:00 98.3 86 17 160/92 (114) 98 98.3 03/24/25 10:00 Room Air 0.0 03/24/25 10:00 21 Total Intake and Output 03/23/25 03/23/25 03/24/25 15:00 23:00 07:00 Intake Total 250 ml 600 ml 280 ml Balance 250 ml 600 ml 280 ml medications Current Medications Medications Dose Ordered Sig/Ashley Route Start Time Stop Time Status Last Admin Dose Admin Sodium Chloride 1,000 ml @ 75 mls/hr [id number] IV 03/16/25 12:45 03/24/25 10:13 75 MLS/HR Acetaminophen/ Hydrocodone Bitart 1 tab Q4HP PRN PO 03/16/25 12:45 03/24/25 16:37 1 TAB Ondansetron HCl 4 mg Q4HP PRN IV 03/16/25 12:45 Docusate Sodium 100 mg BIDPRN PRN PO 03/16/25 12:45 Acetaminophen 650 mg Q6HP PRN PO 03/16/25 12:45 03/21/25 01:59 650 MG Ceftriaxone Sodium 50 ml @ 100 mls/hr DAILY@09 IV 03/17/25 09:00 03/24/25 14:35 100 MLS/HR Lorazepam 1 mg ONCE PRN IV 03/16/25 22:00 Atorvastatin Calcium 40 mg HS PO 03/17/25 22:00 03/23/25 21:12 40 MG Clopidogrel Bisulfate 75 mg DAILY PO 03/18/25 10:00 03/24/25 08:50 75 MG Enteral Nutritional Formula 240 ml TIDWM PO 03/18/25 18:00 03/24/25 18:11 240 ML Metoprolol Tartrate 50 mg BID PO 03/18/25 22:00 03/24/25 08:50 50 MG Clonidine HCl 0.1 mg Q4HP PRN PO 03/19/25 00:45 03/24/25 16:37 0.1 MG Nifedipine 90 mg DAILY PO 03/24/25 10:00 03/24/25 08:50 90 MG objective Vitals and nursing notes reviewed. General Appearance: In no acute distress. HEENT: Atraumatic, PERRLA Cardiovascular: Regular rate, Normal S1, Normal S2 Pulmonary: Normal effort. 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 Vascular Surgery consult. Monitor renal function. Magnesium and Potassium replacement per protocol. IVFs with NS at 75 mL/hr. Intake/Output monitoring with Rivera. Optimization of BP with IV Hydralazine. Home medications resumed as ordered. Pain management prn. Additional plan as per the hospital course. Dietary Evaluation Review Comments: 1. 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 Nepro 240ml oral supplementation TID is encouraged if pt continues refusing food. 2. If EN preferd, consider TF Nepro@ 25ml/hr (49g Protein, 1062kcal 436ml free water. Flush with allowed H2O q6r. [facility]. [facility] Renal standard diet if HD initiated. 5. consider TPN per pharmacy meeting her daily protein and energy requirement if GI unaccessible. Expected Outcomes/Goals: prevent uremic syndrome, pervent wt loss, controlled DM Plan discussed with: Patient, Other (RN) RIAN LA DO Mar 24, 2025 19:17
--- NOTE | 2025-03-24 23:33 | DVHPN2 ---
Progress Note - Dictate Date Seen: Mar 24, 2025 Has the PT tested + for MRSA If YES, has PT been informed?: No Medical Necessity Reason Pt with a Central, PICC or Fol: Yes The following are medically ne: Rivera Catheter Subjective Ms. Mark is a 89 years old right-handed female with a history of hypertension, diabetes, chronic kidney failure, COPD, glaucoma, the patient was brought to the [facility] on 03/16/2025 with a chief complaint of general weakness, altered mental status. I returned to the operative in the evening, after she had returned from the manager cardiac cath. Cardiology service attempted but failed to access carotid artery I have seen and examined the patient, I have talked to her nurse, and sitter. She is doing better, awake, oriented to person, place, good social skills. No new complaints, wants to go home Blood culture, 03/16/25: No growth Blood culture, 03/17/2025: Urinalysis, 03/16/2025: WBC: 2, urine leukocyte esterase: Negative WBC/HB/PLT/MCV, 03/16/2025: 9.8/9.5/353/95.1 BUN/CR, 03/16/2025: 20/3.36 GFR, 03/16/2025: 13 HGB A1c, 03/17/2025: 6.4 TG/HDL/LDL/HDL, 03/16/2025: 89/115/56/35 TSH, 03/17/2025: 0.61 VERONIKA 03/17/2025: Technically good study. Sinus rhythm. Normal chamber sizes. Mild concentric LVH. Valves appear to be structurally normal. Mild thickening of the right coronary cusp. No stenosis present. The mitral and tricuspid are within normal limits. The pulmonic is normal. Left ventricular systolic function is preserved at 65% with normal RV function. There is mild TR. No significant aortic or mitral insufficiency. No pulmonic insufficiency. No pericardial effusion masses or vegetations discernible. A bubble study performed showing no crossover into the left chambers. No evidence for atrial septal defect. No ventricular septal defect and/or other pathology. No evidence for endocarditis or vegetations. Carotid Doppler, 03/17/2025: 1. Greater than 50%/70% stenosis of the left ICA. 2. Between 50-69% stenosis of the right ICA. Chest x-ray 03/16/25: Increased interstitial prominence. This may represent pulmonary vascular congestion and/or viral pneumonia CT head, 03/16/25: No acute intracranial abnormality (Multiple remote lacunar infarcts throughout both basal ganglia and both anguiano radiata.) CTA neck, head 03/22/2025: Moderate to severe calcification of the right carotid bulb with greater than 80% stenosis of the proximal right ICA. Moderate stenosis of the left carotid bulb with approximately 50% stenosis of the proximal left ICA. 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 Bilateral pulmonary tree-in-bud nodularity which can be seen with atypical infection, bronchiolitis. Pulmonary emphysematous changes. MRI head, 03/17/2025: No acute cerebrovascular ischemia. Mild chronic microvascular ischemic changes. Mild global cerebral volume loss. vital signs Vital Sign Date Time Temp Pulse Resp B/P (MAP) Pulse Ox O2 Delivery O2 Flow Rate FiO2 03/24/25 21:50 88 159/73 03/24/25 21:00 98.1 19 95 98.1 03/24/25 20:00 Room Air* 0 21 Total Intake and Output 03/23/25 03/23/25 03/24/25 15:00 23:00 07:00 Intake Total 250 ml 600 ml 280 ml Balance 250 ml 600 ml 280 ml medications Current Medications Medications Dose Ordered Sig/Ashley Route Start Time Stop Time Status Last Admin Dose Admin Sodium Chloride 1,000 ml @ 75 mls/hr [id number] IV 03/16/25 12:45 03/24/25 10:13 75 MLS/HR Acetaminophen/ Hydrocodone Bitart 1 tab Q4HP PRN PO 03/16/25 12:45 03/24/25 16:37 1 TAB Ondansetron HCl 4 mg Q4HP PRN IV 03/16/25 12:45 Docusate Sodium 100 mg BIDPRN PRN PO 03/16/25 12:45 Acetaminophen 650 mg Q6HP PRN PO 03/16/25 12:45 03/21/25 01:59 650 MG Ceftriaxone Sodium 50 ml @ 100 mls/hr DAILY@09 IV 03/17/25 09:00 03/24/25 14:35 100 MLS/HR Lorazepam 1 mg ONCE PRN IV 03/16/25 22:00 Atorvastatin Calcium 40 mg HS PO 03/17/25 22:00 03/24/25 21:49 40 MG Clopidogrel Bisulfate 75 mg DAILY PO 03/18/25 10:00 03/24/25 08:50 75 MG Enteral Nutritional Formula 240 ml TIDWM PO 03/18/25 18:00 03/24/25 18:11 240 ML Metoprolol Tartrate 50 mg BID PO 03/18/25 22:00 03/24/25 21:50 50 MG Clonidine HCl 0.1 mg Q4HP PRN PO 03/19/25 00:45 03/24/25 16:37 0.1 MG Nifedipine 90 mg DAILY PO 03/24/25 10:00 03/24/25 08:50 90 MG objective General: the patient is well developed and nourished. No acute distress. MENTAL STATUS: Subjective SPEECH, LANGUAGE, HIGHER CORTICAL FUNCTION: no aphasia or dysathria. CRANIAL NERVES: Pupils are equal, round and reactive. EOMs full and conjugate. Facial sensation intact in all three divisions bilaterally. Mandibular strength intact. Facial muscles symmetrical and strength intact. Tongue midline. No fasciculations or atrophy. SENSATION: Sensation to touch and pinprick is normal. MOTOR: Normal tone in the upper and lower extremity. Normal muscle bulk. No fasciculations. No abnormal movements or posturing. He moves the arms and legs REFLEXES: Deep tendon reflexes are symmetrical. No pathological reflexes. 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 Although this document has been carefully reviewed, there may still be some phonetic and typographical errors. These areas are purely typographical due to imperfections of the software programs, and do not reflect any compromise in the patient's medical care. Prognosis poor Dietary Evaluation Review Comments: 1. 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 Nepro 240ml oral supplementation TID is encouraged if pt continues refusing food. 2. If EN preferd, consider TF Nepro@ 25ml/hr (49g Protein, 1062kcal 436ml free water. Flush with allowed H2O q6r. 4. Advance to [facility]-60 Renal standard diet if HD initiated. 5. consider TPN per pharmacy meeting her daily protein and energy requirement if GI unaccessible. Expected Outcomes/Goals: prevent uremic syndrome, pervent wt loss, controlled DM Plan discussed with: Other Total Time (mins): 35 MARIA R MAE MD Mar 24, 2025 23:33
[2025-03-25] VITALS (8 sets, daily range): BP systolic 42–158; BP diastolic 62–72; PULSE 44–102; RESP 16–22; TEMP 96.7–98.3; O2SAT 94–98
[2025-03-25 06:48] LABS: Albumin 3.9 g/dL (3.2-4.8); Anion Gap 13 (5-15); BUN/Creatinine Ratio 5.4 (10.0-20.0); Bilirubin, Total 0.5 mg/dL (0.2-1.0); Calcium 9.2 mg/dL (8.7-10.4); Carbon Dioxide 23 mmol/L (20-31); Chloride 106 mmol/L (98-107); Potassium 4.0 mmol/L (3.5-5.1); Sodium 142 mmol/L (136-145); Total Protein 7.4 g/dL (5.7-8.2)
[2025-03-25 06:50] LABS: Alanine Aminotransferase 49 U/L (7-40); Alkaline Phosphatase 167 U/L (46-116); Blood Urea Nitrogen 6 mg/dL (9-23); Glucose 108 mg/dL (74-106)
--- NOTE | 2025-03-25 08:26 | DVHINCON2 ---
Consultation - Surgical Date Seen: Mar 25, 2025 Referring Physician Referring Physician dl Reason for Consultation right ica stenosis History of Present Illness History of Present Illness Lyubov Mark is an 89-year-old female with past medical history of hyp ertension, who was brought to the hospital for generalized weakness. Patient lives with her son. He brought her in stating she has not been eating or drinking well and has been becoming weaker over the last few days. On assessment the patient answers to her name, but can not tell me her name, she is also not able to move her left arm and complains of pain. The son is concerned because she has not been eating well for the last few days. The nurse states he insist on feeding her even when she does not want it. The patient is pocketing the food. When the nurse turned her to clean her up food came our of her mouth. Patient was had and the have a right ICA stenosis greater than 80%. Past Medical/Surgical History Past Medical/Surgical History medical history of hypertension severe peripheral vascular disease. Family and Social History Family and Social History Chronic smoker Allergies and medications Allergies: Coded Allergies: NO KNOWN ALLERGIES (Unverified , 06/29/23) Home Meds Active Scripts Atorvastatin Calcium (ATORVASTATIN CALCIUM) 20 Mg Tab, 40 MG PO HS for 30 Days, #60 TAB 6 Refills Prov:MEJIAJAKOB Johnson DO 03/21/25 Metoprolol Tartrate (LOPRESSOR TABLET) 50 Mg Tb, 50 MG PO BID for 30 Days, #60 TAB 6 Refills Prov:MEJIAJAKOB Johnson Coleman DO 03/21/25 Nifedipine (Nifedipine Er) 30 Mg Tab, 60 MG PO DAILY for 30 Days, #60 TAB 6 Refills Prov:MEJIAJAKOB Johnson Coleman DO 03/21/25 Acetaminophen (Acetaminophen) 500 Mg Tab, 500 MG PO Q4HP PRN, #30 TAB Prov:MILAN YEE PAC 03/03/25 Ondansetron Odt 4MG Tab (ZOFRAN PO) 4 Mg Tb, 4 MG PO Q6HP PRN, #20 TAB ODT TAB-DISSOLVE IN MOUTH, THEN SWALLOW Prov:MILAN YEE PAC 03/03/25 Sulfamethoxazole W/Trimethopri (Bactrim Ds Tablet) 1 Tab Tb, 1 TAB PO BID for 7 Days, #14 TAB Prov:MILAN YEE PAC 03/03/25 Clindamycin Hcl (Clindamycin Hcl) 300 Mg Cap, 150 MG PO TID for 10 Days, #30 CAP Prov:MIGUEL ANGEL CÁRDENAS MD 03/21/24 Cephalexin (KEFLEX CAPSULE) 250 Mg Cp, 250 MG PO QID for 10 Days, #40 BOTTLE Prov:MIGUEL ANGEL CÁRDENAS MD 03/21/24 Clindamycin Hcl (Clindamycin Hcl) 300 Mg Cap, 1 CAP PO TID for 7 Days, #21 CAP Prov:HANSEL MADDOX 08/21/23 Clindamycin Hcl (Clindamycin Hcl) 300 Mg Cap, 450 MG PO TID for 7 Days, #32 CAP Prov:LINWOOD SCOTT PAC 06/30/23 Reported Medications Sevelamer Carbonate (Renvela) 800 Mg Tab, 3 TAB PO TID, #810 TAB 3 Refills 03/17/25 Gabapentin (Gabapentin) 300 Mg Cap, 1 CAP PO BID, #90 CAP 5 Refills 03/17/25 Lisinopril (Lisinopril) 20 Mg Tab, 1 TAB PO DAILY, #30 TAB 5 Refills 03/17/25 Clopidogrel Bisulfate (CLOPIDOGREL) 75 Mg Tab, 1 TAB PO DAILY, #90 TAB 1 Refill 03/17/25 Hydrochlorothiazide (Hydrochlorothiazide) 25 Mg Tab, 1 TAB PO DAILY, #30 TAB 5 R efills 03/17/25 Amlodipine Besylate (Amlodipine Besylate) 10 Mg Tab, 1 TAB PO DAILY, #30 TAB 5 Refills 03/17/25 Omeprazole (Prilosec Susp (For Gt)) 20 Mg Ss, 20 MG GT, ML 03/17/25 Clonidine Hydrochloride (Clonidine Hcl) 0.2 Mg Tab, 1 TAB PO BID, #180 TAB 3 Refills 03/17/25 Metoprolol Tartrate (Metoprolol Tartrate) 50 Mg Tab, 50 MG PO BID, TAB 03/17/25 Review of systems Review of Systems: HEENT:Normal, CVS:Normal, RESPIRATORY:Normal, GI:Normal, :Normal Examination Vital signs Vital Signs Date Time Temp Pulse Resp B/P (MAP) Pulse Ox O2 Delivery O2 Flow Rate FiO2 03/25/25 05:00 98.3 94 22 158/72 (100) 98 98.3 03/24/25 20:00 Room Air* 0 21 Medications Current Medications Medications (Trade) Dose Ordered Sig/Ashley Route PRN Reason Start Time Stop Time Status Last Admin Nifedipine (Procardia Xl (Time-Release)) 90 mg DAILY PO 03/24/25 10:00 03/24/25 08:50 Laboratory Labs Test 03/25/25 04:20 03/24/25 05:19 03/18/25 08:36 03/17/25 09:32 Range/Units Sodium Level 142 136-145 mmol/L Potassium Level 4.0 3.5-5.1 mmol/L Chloride Level 106 98-107 mmol/L Carbon Dioxide Level 23 20-31 mmol/L Anion Gap 13 5-15 Blood Urea Nitrogen 6 L 9-23 mg/dL Creatinine 1.12 H 0.550-1.02 mg/dL Glomerular Filtration Rate Calc 48 >90 mL/min BUN/Creatinine Ratio 5.4 L 10.0-20.0 Serum Glucose 108 H 74-106 mg/dL Calcium Level 9.2 8.7-10.4 mg/dL Total Bilirubin 0.5 0.2-1.0 mg/dL Aspartate Amino Transferase (AST) 68 H 13-40 U/L Alanine Aminotransferase (ALT) 49 H 7-40 U/L Alkaline Phosphatase 167 H 46-116 U/L Total Protein 7.4 5.7-8.2 g/dL Albumin 3.9 3.2-4.8 g/dL White Blood Count 5.4 4.4-10.8 10^3/uL Red Blood Count 3.21 L 4.0-5.20 10^6/uL Hemoglobin 10.1 L 12.2-16.2 g/dL Hematocrit 29.5 L 36.0-46.0 % Mean Corpuscular Volume 92.0 80.0-100.0 fL Mean Corpuscular Hemoglobin 31.4 28.0-32.0 pg Mean Corpuscular Hemoglobin Concent 34.2 32.0-36.0 g/dL Red Cell Distribution Width 15.4 H 11.8-14.3 % Platelet Count 470 H 140-450 10^3/uL Mean Platelet Volume 8.5 6.9-10.8 fL Neutrophils (%) (Auto) 47.4 37.0-80.0 % Lymphocytes (%) (Auto) 39.8 10.0-50.0 % Monocytes (%) (Auto) 10.9 0.0-12.0 % Eosinophils (%) (Auto) 1.3 0.0-7.0 % Basophils (%) (Auto) 0.6 0.0-2.0 % Neutrophils # (Auto) 2.6 1.6-8.6 10 ^3/uL Lymphocytes # (Auto) 2.1 0.4-5.4 10 ^3/uL Monocytes # (Auto) 0.6 0-1.3 10 ^3/uL Eosinophils # (Auto) 0.1 0-0.8 10 ^3/uL Basophils # (Auto) 0 0-0.2 10 ^3/uL Nucleated Red Blood Cells 0.5 % Prothrombin Time 11.4 9.3-11.8 sec Prothrombin Time INR 1.08 0.9-1.15 Activated Partial Thromboplast Time 27.6 24.5-34.5 SEC Magnesium Level 2.2 1.6-2.6 mg/dL B-Type Natriuretic Peptide 201.44 0-100 pg/mL Troponin I High Sensitivity 66 *H </=34 ng/L Thyroid Stimulating Hormone (TSH) 0.61 0.55-4.78 uIU/mL Test 03/17/25 02:23 03/16/25 08:28 03/16/25 05:51 Range/Units Hemoglobin A1c 6.4 H <5.7 % A1C Urine Color Yellow Yellow Urine Clarity Turbid H Clear Urine pH 5.5 5.0-9.0 Urine Specific [place] 1.021 1.001-1.035 Urine Protein 1+ H Negative Urine Ketones Trace Negative Urine Blood Negative Negative /uL Urine Nitrite Negative Negative Urine Bilirubin Negative Negative Urine Urobilinogen Normal Negative mg/dL Urine Leukocyte Esterase Negative Negative /uL Urine RBC 2 0 - 4 /hpf Urine Microscopic WBC 2 0-5 /HPF Urine Squamous Epithelial Cells None seen <5 /hpf Urine Bacteria None seen None Seen /hpf Urine Hyaline Casts Many 0 - 2 /lpf Urine Granular Casts Many 0 /lpf Urine Mucus Few None Seen Urine Glucose Normal Normal mg/dL Lactic Acid Level 1.0 0.4-2.0 mmol/L Triglycerides Level 89 < 150 mg/dL Cholesterol Level 115 < 200 mg/dL LDL Cholesterol 56 < 100 mg/dL HDL Cholesterol 35 L 40-59 mg/dL Microbiology Date/Time Source Procedure Growth Status 03/17/25 00:15 Blood Blood Culture - Final NO GROWTH AFTER 5 DAYS OF INCUBATION. Complete 03/16/25 16:25 Nose MRSA Screen - Final Complete EXAM: CT ANGIO HEAD/NECK DATE OF SERVICE: 03/22/2025 10:45 AM ORDERING PHYSICIAN: JAKOB MEJIA REASON FOR EXAM: Rule out carotid stenosis TECHNIQUE: CTA of the brain and neck was performed after the administration of contrast . Axial images of the head and neck are obtained. Coronal and sagittal images were then reformatted for review. MIP reformats were obtained and reviewed. COMPARISON: CT head from 03/16/2025, MRI brain 03/17/2025 FINDINGS: FINDINGS: The right common carotid artery demonstrates moderate to severe calcification of the right carotid bulb. Right internal carotid artery demonstrates greater than 80% stenosis of the proximal right ICA with extensive calcification disease.m Right middle cerebral artery demonstrates no high-grade stenosis. 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 The right anterior cerebral artery demonstrates no high-grade stenosis. The left common carotid artery demonstrates moderate calcification of the left carotid bulb. Left internal carotid artery demonstrates approximately 50% stenosis of the proximal left ICA just beyond the carotid bulb. The left middle cerebral artery demonstrates no high-grade stenosis. The left anterior cerebral artery demonstrates no high-grade stenosis. The right vertebral artery demonstrates no high-grade stenosis. The left vertebral artery demonstrates no high-grade stenosis. Basilar artery demonstrates no high-grade stenosis. The bilateral posterior cerebral arteries demonstrate no high-grade stenosis. Pulmonary emphysematous changes. Bilateral pulmonary tree-in-bud nodularity. Right maxillary sinus disease. IMPRESSION: Moderate to severe calcification of the right carotid bulb with greater than 80% stenosis of the proximal right ICA. Moderate stenosis of the left carotid bulb with approximately 50% stenosis of the proximal left ICA. 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 Bilateral pulmonary tree-in-bud nodularity which can be seen with atypical infection, bronchiolitis. Pulmonary emphysematous changes. Examination: GENERAL:Normal, HEENT:Normal, NECK:Normal, LUNGS:Normal, CVS:Normal, ABDOMEN:Normal, MSK:Normal (Bilateral pulse exam weakly palpable pedal pulses.), SKIN:Normal Problem List/Assessment/Plan Problems: (1) PAD (peripheral artery disease) Assessment and Plan Critical right ICA stenosis. Discussed with family and patient the risks benefits of medical management versus repairing the right carotid stenosis. Patient and son are going to discuss it with their family and make a decision on conservative care being antiplatelet therapy versus carotid endarterectomy. Plan discussed with Plan discussed with: Patient, Son Visit Coding Surgery Date of Service if different f: Mar 25, 2025 Billing Provider: JOSE ARMANDO DOSS Jr., MD Surgery Visit Codes: 28468 - INP CONSULT <80 MIN JOSE ARMANDO DOSS Jr., MD Mar 25, 2025 08:26
--- NOTE | 2025-03-25 15:42 | DVHPN2 ---
Progress Note Date Seen: Mar 22, 2025 Has the PT tested + for MRSA If YES, has PT been informed?: No Medical Necessity Reason Pt with a Central, PICC or Fol: Yes The following are medically ne: Rivera Catheter Objective vital signs Vital Sign Date Time Temp Pulse Resp B/P (MAP) Pulse Ox O2 Delivery O2 Flow Rate FiO2 03/25/25 13:24 70 157/66 03/25/25 13:00 98.0 17 98 98.0 03/25/25 08:00 Room Air* 0 21 Total Intake and Output 03/24/25 03/24/25 03/25/25 15:00 23:00 07:00 Intake Total 150 ml 550 ml 75 ml Balance 150 ml 550 ml 75 ml medications Current Medications Medications Dose Ordered Sig/Ashley Route Start Time Stop Time Status Last Admin Dose Admin Sodium Chloride 1,000 ml @ 75 mls/hr [id number] IV 03/16/25 12:45 03/25/25 10:58 75 MLS/HR Acetaminophen/ Hydrocodone Bitart 1 tab Q4HP PRN PO 03/16/25 12:45 03/25/25 13:24 1 TAB Ondansetron HCl 4 mg Q4HP PRN IV 03/16/25 12:45 Docusate Sodium 100 mg BIDPRN PRN PO 03/16/25 12:45 Acetaminophen 650 mg Q6HP PRN PO 03/16/25 12:45 03/21/25 01:59 650 MG Ceftriaxone Sodium 50 ml @ 100 mls/hr DAILY@09 IV 03/17/25 09:00 03/25/25 09:10 100 MLS/HR Lorazepam 1 mg ONCE PRN IV 03/16/25 22:00 Atorvastatin Calcium 40 mg HS PO 03/17/25 22:00 03/24/25 21:49 40 MG Clopidogrel Bisulfate 75 mg DAILY PO 03/18/25 10:00 03/25/25 09:37 75 MG Enteral Nutritional Formula 240 ml TIDWM PO 03/18/25 18:00 03/25/25 12:13 240 ML Metoprolol Tartrate 50 mg BID PO 03/18/25 22:00 03/25/25 09:36 50 MG Clonidine HCl 0.1 mg Q4HP PRN PO 03/19/25 00:45 03/24/25 16:37 0.1 MG Nifedipine 90 mg DAILY PO 03/24/25 10:00 03/25/25 09:37 90 MG Examination: GENERAL:Normal, HEENT:Normal laboratory and microbiology Laboratory Tests 03/25/25 04:20 03/24/25 05:19 Test 03/25/25 04:20 Range/Units Serum Glucose 108 H 74-106 mg/dL Microbiology Date/Time Source Procedure Growth Status 03/17/25 00:15 Blood Blood Culture - Final NO GROWTH AFTER 5 DAYS OF INCUBATION. 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 pending evaluation by caridology and vasc surg Plan discussed with: Patient Dietary Evaluation Review Comments: 1. 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 Nepro 240ml oral supplementation TID is encouraged if pt continues refusing food. 2. If EN preferd, consider TF Nepro@ 25ml/hr (49g Protein, 1062kcal 436ml free water. Flush with allowed H2O q6r. 4. Advance to [facility]-60 Renal standard diet if HD initiated. 5. consider TPN per pharmacy meeting her daily protein and energy requirement if GI unaccessible. Expected Outcomes/Goals: prevent uremic syndrome, pervent wt loss, controlled DM JAKOB MEJIA DO Mar 25, 2025 15:42
--- NOTE | 2025-03-25 15:43 | DVHPN2 ---
Progress Note Date Seen: Mar 23, 2025 Has the PT tested + for MRSA If YES, has PT been informed?: No Medical Necessity Reason Pt with a Central, PICC or Fol: Yes The following are medically ne: Rivera Catheter Objective vital signs Vital Sign Date Time Temp Pulse Resp B/P (MAP) Pulse Ox O2 Delivery O2 Flow Rate FiO2 03/25/25 13:24 70 157/66 03/25/25 13:00 98.0 17 98 98.0 03/25/25 08:00 Room Air* 0 21 Total Intake and Output 03/24/25 03/24/25 03/25/25 15:00 23:00 07:00 Intake Total 150 ml 550 ml 75 ml Balance 150 ml 550 ml 75 ml medications Current Medications Medications Dose Ordered Sig/Ashley Route Start Time Stop Time Status Last Admin Dose Admin Sodium Chloride 1,000 ml @ 75 mls/hr [id number] IV 03/16/25 12:45 03/25/25 10:58 75 MLS/HR Acetaminophen/ Hydrocodone Bitart 1 tab Q4HP PRN PO 03/16/25 12:45 03/25/25 13:24 1 TAB Ondansetron HCl 4 mg Q4HP PRN IV 03/16/25 12:45 Docusate Sodium 100 mg BIDPRN PRN PO 03/16/25 12:45 Acetaminophen 650 mg Q6HP PRN PO 03/16/25 12:45 03/21/25 01:59 650 MG Ceftriaxone Sodium 50 ml @ 100 mls/hr DAILY@09 IV 03/17/25 09:00 03/25/25 09:10 100 MLS/HR Lorazepam 1 mg ONCE PRN IV 03/16/25 22:00 Atorvastatin Calcium 40 mg HS PO 03/17/25 22:00 03/24/25 21:49 40 MG Clopidogrel Bisulfate 75 mg DAILY PO 03/18/25 10:00 03/25/25 09:37 75 MG Enteral Nutritional Formula 240 ml TIDWM PO 03/18/25 18:00 03/25/25 12:13 240 ML Metoprolol Tartrate 50 mg BID PO 03/18/25 22:00 03/25/25 09:36 50 MG Clonidine HCl 0.1 mg Q4HP PRN PO 03/19/25 00:45 03/24/25 16:37 0.1 MG Nifedipine 90 mg DAILY PO 03/24/25 10:00 03/25/25 09:37 90 MG laboratory and microbiology Laboratory Tests 03/25/25 04:20 03/24/25 05:19 Test 03/25/25 04:20 Range/Units Serum Glucose 108 H 74-106 mg/dL Microbiology Date/Time Source Procedure Growth Status 03/17/25 00:15 Blood Blood Culture - Final NO GROWTH AFTER 5 DAYS OF INCUBATION. 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 pending evaluation by cardiology and vasc surg son to make decision Plan discussed with: Patient, Son Dietary Evaluation Review Comments: 1. 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 Nepro 240ml oral supplementation TID is encouraged if pt continues refusing food. 2. If EN preferd, consider TF Nepro@ 25ml/hr (49g Protein, 1062kcal 436ml free water. Flush with allowed H2O q6r. 4. Advance to CCHO-60 Renal standard diet if HD initiated. 5. consider TPN per pharmacy meeting her daily protein and energy requirement if GI unaccessible. Expected Outcomes/Goals: prevent uremic syndrome, pervent wt loss, controlled DM JAKOB MEJIA DO Mar 25, 2025 15:43
--- NOTE | 2025-03-25 20:17 | DVHPN2 ---
Progress Note - Dictate Date Seen: Mar 25, 2025 Has the PT tested + for MRSA If YES, has PT been informed?: No Medical Necessity Reason Pt with a Central, PICC or Fol: Yes The following are medically ne: Rivera Catheter Subjective Patient was seen and evaluated in follow up. No acute events overnight. Patient is awake and alert x person. Sitter at bedside. Patient's son is concerned because patient has not been eating well the past few days. Patient is noted pocketing food. Creatinine 1.12 with BUN of 6. K is wnl. vital signs Vital Sign Date Time Temp Pulse Resp B/P (MAP) Pulse Ox O2 Delivery O2 Flow Rate FiO2 03/25/25 16:39 98.0 94 17 137/70 (92) 98 98.0 03/25/25 08:00 Room Air* 0 21 Total Intake and Output 03/24/25 03/24/25 03/25/25 15:00 23:00 07:00 Intake Total 150 ml 550 ml 75 ml Balance 150 ml 550 ml 75 ml medications Current Medications Medications Dose Ordered Sig/Ashley Route Start Time Stop Time Status Last Admin Dose Admin Sodium Chloride 1,000 ml @ 75 mls/hr [id number] IV 03/16/25 12:45 03/25/25 10:58 75 MLS/HR Ondansetron HCl 4 mg Q4HP PRN IV 03/16/25 12:45 Docusate Sodium 100 mg BIDPRN PRN PO 03/16/25 12:45 Acetaminophen 650 mg Q6HP PRN PO 03/16/25 12:45 03/21/25 01:59 650 MG Ceftriaxone Sodium 50 ml @ 100 mls/hr DAILY@09 IV 03/17/25 09:00 03/25/25 09:10 100 MLS/HR Lorazepam 1 mg ONCE PRN IV 03/16/25 22:00 Atorvastatin Calcium 40 mg HS PO 03/17/25 22:00 03/24/25 21:49 40 MG Clopidogrel Bisulfate 75 mg DAILY PO 03/18/25 10:00 03/25/25 09:37 75 MG Enteral Nutritional Formula 240 ml TIDWM PO 03/18/25 18:00 03/25/25 17:44 240 ML Metoprolol Tartrate 50 mg BID PO 03/18/25 22:00 03/25/25 09:36 50 MG Clonidine HCl 0.1 mg Q4HP PRN PO 03/19/25 00:45 03/24/25 16:37 0.1 MG Nifedipine 90 mg DAILY PO 03/24/25 10:00 03/25/25 09:37 90 MG objective Vitals and nursing notes reviewed. General Appearance: In no acute distress. HEENT: Atraumatic, PERRLA Cardiovascular: Regular rate, Normal S1, Normal S2 Pulmonary: Normal effort. Clear breath sounds Abdominal: Normal bowel sounds, Soft, No tenderness Extremities: No clubbing, No cyanosis, No edema, Normal pulses, No tenderness/swelling Skin: No rashes, No breakdown, No significant lesion Neuro: Other (Difficulty moving left arm, minimal ambulation at baseline) Psych/Mental Status: A&O laboratory and microbiology Laboratory Tests 03/25/25 04:20 03/24/25 05:19 Test 03/25/25 04:20 Range/Units Serum Glucose 108 H 74-106 mg/dL Problem List Multiple strokes NSTEMI, likely type II secondary to above Hypertension Dyslipidemia Diabetes mellitus type 2 NILE on CKD COPD Anemia Assessment/Plan Agree with current supportive medical care. Vascular Surgery consult. Awaiting family decision on conservative management vs carotid endarterectomy. Monitor renal function. Magnesium and Potassium replacement per protocol. IVFs with NS at 75 mL/hr. Intake/Output monitoring with Rivera. IV Ceftriaxone. Home medications resumed as ordered. Pain management prn. Additional plan as per the hospital course. Dietary Evaluation Review Comments: 1. 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 Nepro 240ml oral supplementation TID is encouraged if pt continues refusing food. 2. If EN preferd, consider TF Nepro@ 25ml/hr (49g Protein, 1062kcal 436ml free water. Flush with allowed H2O q6r. 4. Advance to CCHO-60 Renal standard diet if HD initiated. 5. consider TPN per pharmacy meeting her daily protein and energy requirement if GI unaccessible. Expected Outcomes/Goals: prevent uremic syndrome, pervent wt loss, controlled DM Plan discussed with: Patient, Other (RN) RINA LA DO Mar 25, 2025 20:17
[2025-03-25] MEDS ORDERED: HYDROcodone-ACET 5/325MG TAB PO PRN (22:00)
[2025-03-26] VITALS (9 sets, daily range): BP systolic 156–180; BP diastolic 69–83; PULSE 82–104; RESP 16–19; TEMP 97.7–98.3; O2SAT 94–99
[2025-03-26] MEDS: HYDROcodone-ACET 5/325MG TAB PO PRN (00:56)
--- NOTE | 2025-03-26 20:36 | DVHPN2 ---
Progress Note - Dictate Date Seen: Mar 26, 2025 Has the PT tested + for MRSA If YES, has PT been informed?: No Medical Necessity Reason Pt with a Central, PICC or Fol: Yes The following are medically ne: Rivera Catheter Subjective Patient was seen and evaluated in follow up. No acute events overnight. Patient is awake and alert x person. Sitter at bedside. No new complaints. Pending new labs. vital signs Vital Sign Date Time Temp Pulse Resp B/P (MAP) Pulse Ox O2 Delivery O2 Flow Rate FiO2 03/26/25 17:00 97.9 91 18 156/83 (107) 99 97.9 03/26/25 08:06 Room Air* 0 21 Total Intake and Output 03/25/25 03/25/25 03/26/25 15:00 23:00 07:00 Intake Total 600 ml 410 ml Output Total 0 ml Balance 600 ml 410 ml medications Current Medications Medications Dose Ordered Sig/Ashley Route Start Time Stop Time Status Last Admin Dose Admin Sodium Chloride 1,000 ml @ 75 mls/hr [id number] IV 03/16/25 12:45 03/26/25 15:17 75 MLS/HR Ondansetron HCl 4 mg Q4HP PRN IV 03/16/25 12:45 Docusate Sodium 100 mg BIDPRN PRN PO 03/16/25 12:45 Acetaminophen 650 mg Q6HP PRN PO 03/16/25 12:45 03/26/25 10:34 650 MG Ceftriaxone Sodium 50 ml @ 100 mls/hr DAILY@09 IV 03/17/25 09:00 03/26/25 08:51 100 MLS/HR Lorazepam 1 mg ONCE PRN IV 03/16/25 22:00 Atorvastatin Calcium 40 mg HS PO 03/17/25 22:00 03/25/25 20:51 40 MG Clopidogrel Bisulfate 75 mg DAILY PO 03/18/25 10:00 03/26/25 09:41 75 MG Enteral Nutritional Formula 240 ml TIDWM PO 03/18/25 18:00 03/26/25 17:50 240 ML Metoprolol Tartrate 50 mg BID PO 03/18/25 22:00 03/26/25 09:40 50 MG Clonidine HCl 0.1 mg Q4HP PRN PO 03/19/25 00:45 03/24/25 16:37 0.1 MG Nifedipine 90 mg DAILY PO 03/24/25 10:00 03/26/25 09:43 90 MG Acetaminophen/ Hydrocodone Bitart 1 tab Q6HPRN PRN PO 03/25/25 22:30 03/26/25 00:56 1 TAB objective Vitals and nursing notes reviewed. General Appearance: In no acute distress. HEENT: Atraumatic, PERRLA Cardiovascular: Regular rate, Normal S1, Normal S2 Pulmonary: Normal effort. Clear breath sounds Abdominal: Normal bowel sounds, Soft, No tenderness Extremities: No clubbing, No cyanosis, No edema, Normal pulses, No tenderness/swelling Skin: No rashes, No breakdown, No significant lesion Neuro: Other (Difficulty moving left arm, minimal ambulation at baseline) Psych/Mental Status: A&O laboratory and microbiology Laboratory Tests 03/25/25 04:20 03/24/25 05:19 Test 03/25/25 04:20 Range/Units Serum Glucose 108 H 74-106 mg/dL Problem List Multiple strokes NSTEMI, likely type II secondary to above Hypertension Dyslipidemia Diabetes mellitus type 2 NILE on CKD COPD Anemia Assessment/Plan Agree with current supportive medical care. Vascular Surgery consult. Awaiting family decision on conservative management vs carotid endarterectomy. Monitor renal function. Electrolyte replacement prn. IVFs with NS at 75 mL/hr. Intake/Output monitoring with Rivera. IV Ceftriaxone. Home medications resumed as ordered. Pain management prn. Additional plan as per the hospital course. Dietary Evaluation Review Comments: 1. 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 Nepro 240ml oral supplementation TID is encouraged if pt continues refusing food. 2. If EN preferd, consider TF Nepro@ 25ml/hr (49g Protein, 1062kcal 436ml free water. Flush with allowed H2O q6r. 4. Advance to CCHO-60 Renal standard diet if HD initiated. 5. consider TPN per pharmacy meeting her daily protein and energy requirement if GI unaccessible. Expected Outcomes/Goals: prevent uremic syndrome, pervent wt loss, controlled DM Plan discussed with: Patient, Other (RN) RIAN LA DO Mar 26, 2025 20:36
--- NOTE | 2025-03-26 20:50 | DVHPN2 ---
Progress Note - Dictate Date Seen: Mar 26, 2025 Has the PT tested + for MRSA If YES, has PT been informed?: No Medical Necessity Reason Pt with a Central, PICC or Fol: Yes The following are medically ne: Rivera Catheter Subjective Ms. Mark is a 89 years old right-handed female with a history of hypertension, diabetes, chronic kidney failure, COPD, glaucoma, the patient was brought to the [facility] on 03/16/2025 with a chief complaint of general weakness, altered mental status. I have seen and examined the patient, I have talked to her nurse, and sitter. She is doing fine, awake, oriented to person, place, she was very angry because the room was too cold Blood culture, 03/16/25: No growth Blood culture, 03/17/2025: Urinalysis, 03/16/2025: WBC: 2, urine leukocyte esterase: Negative WBC/HB/PLT/MCV, 03/16/2025: 9.8/9.5/353/95.1 BUN/CR, 03/16/2025: 20/3.36 GFR, 03/16/2025: 13 HGB A1c, 03/17/2025: 6.4 TBI/AST/ALT/AP, 03/25/25: 0.5/68/49/167 TG/HDL/LDL/HDL, 03/16/2025: 89/115/56/35 TSH, 03/17/2025: 0.61 VERONIKA 03/17/2025: Technically good study. Sinus rhythm. Normal chamber sizes. Mild concentric LVH. Valves appear to be structurally normal. Mild thickening of the right coronary cusp. No stenosis present. The mitral and tricuspid are within normal limits. The pulmonic is normal. Left ventricular systolic function is preserved at 65% with normal RV function. There is mild TR. No significant aortic or mitral insufficiency. No pulmonic insufficiency. No pericardial effusion masses or vegetations discernible. A bubble study performed showing no crossover into the left chambers. No evidence for atrial septal defect. No ventricular septal defect and/or other pathology. No evidence for endocarditis or vegetations. Carotid Doppler, 03/17/2025: 1. Greater than 50%/70% stenosis of the left ICA. 2. Between 50-69% stenosis of the right ICA. Chest x-ray 03/16/25: Increased interstitial prominence. This may represent pulmonary vascular congestion and/or viral pneumonia CT head, 03/16/25: No acute intracranial abnormality (Multiple remote lacunar infarcts throughout both basal ganglia and both anguiano radiata.) CTA neck, head 03/22/2025: Moderate to severe calcification of the right carotid bulb with greater than 80% stenosis of the proximal right ICA. Moderate stenosis of the left carotid bulb with approximately 50% stenosis of the proximal left ICA. 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 Bilateral pulmonary tree-in-bud nodularity which can be seen with atypical infection, bronchiolitis. Pulmonary emphysematous changes. MRI head, 03/17/2025: No acute cerebrovascular ischemia. Mild chronic microvascular ischemic changes. Mild global cerebral volume loss. vital signs Vital Sign Date Time Temp Pulse Resp B/P (MAP) Pulse Ox O2 Delivery O2 Flow Rate FiO2 03/26/25 17:00 97.9 91 18 156/83 (107) 99 97.9 03/26/25 08:06 Room Air* 0 21 Total Intake and Output 03/25/25 03/25/25 03/26/25 15:00 23:00 07:00 Intake Total 600 ml 410 ml Output Total 0 ml Balance 600 ml 410 ml medications Current Medications Medications Dose Ordered Sig/Ashley Route Start Time Stop Time Status Last Admin Dose Admin Sodium Chloride 1,000 ml @ 75 mls/hr [id number] IV 03/16/25 12:45 03/26/25 15:17 75 MLS/HR Ondansetron HCl 4 mg Q4HP PRN IV 03/16/25 12:45 Docusate Sodium 100 mg BIDPRN PRN PO 03/16/25 12:45 Acetaminophen 650 mg Q6HP PRN PO 03/16/25 12:45 03/26/25 10:34 650 MG Ceftriaxone Sodium 50 ml @ 100 mls/hr DAILY@09 IV 03/17/25 09:00 03/26/25 08:51 100 MLS/HR Lorazepam 1 mg ONCE PRN IV 03/16/25 22:00 Atorvastatin Calcium 40 mg HS PO 03/17/25 22:00 03/25/25 20:51 40 MG Clopidogrel Bisulfate 75 mg DAILY PO 03/18/25 10:00 03/26/25 09:41 75 MG Enteral Nutritional Formula 240 ml TIDWM PO 03/18/25 18:00 03/26/25 17:50 240 ML Metoprolol Tartrate 50 mg BID PO 03/18/25 22:00 03/26/25 09:40 50 MG Clonidine HCl 0.1 mg Q4HP PRN PO 03/19/25 00:45 03/24/25 16:37 0.1 MG Nifedipine 90 mg DAILY PO 03/24/25 10:00 03/26/25 09:43 90 MG Acetaminophen/ Hydrocodone Bitart 1 tab Q6HPRN PRN PO 03/25/25 22:30 03/26/25 00:56 1 TAB objective General: the patient is well developed and nourished. No acute distress. MENTAL STATUS: Subjective SPEECH, LANGUAGE, HIGHER CORTICAL FUNCTION: no aphasia or dysathria. CRANIAL NERVES: Pupils are equal, round and reactive. EOMs full and conjugate. Facial sensation intact in all three divisions bilaterally. Mandibular strength intact. Facial muscles symmetrical and strength intact. Tongue midline. No fasciculations or atrophy. SENSATION: Sensation to touch and pinprick is normal. MOTOR: Normal tone in the upper and lower extremity. Normal muscle bulk. No fasciculations. No abnormal movements or posturing. He moves the arms and legs REFLEXES: Deep tendon reflexes are symmetrical. No pathological reflexes. CEREBELLAR/COORDINATION: Deferred laboratory and microbiology Laboratory Tests 03/25/25 04:20 03/24/25 05:19 Test 03/25/25 04:20 Range/Units Serum Glucose 108 H 74-106 mg/dL Problem List Altered mental status Metabolic encephalopathy Hypoxic encephalopathy Acute respiratory failure Fever/left forearm cellulitis/sepsis Cognitive dysfunction Multiple strokes Small right MCA brain aneurysm Severe right ICA stenosis Assessment/Plan Monitoring Supportive treatment Vitamin B12, folic acid Telemetry IV antibiotics Oxygen Aspirin 81 mg daily Lipitor 20 mg daily Up to chair Physical therapy More recommendation per clinical course This medical document was created using an electronic medical record system with [employer] dictation system. Although this document has been carefully reviewed, there may still be some phonetic and typographical errors. These areas are purely typographical due to imperfections of the software programs, and do not reflect any compromise in the patient's medical care. Prognosis poor Dietary Evaluation Review Comments: 1. 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 Nepro 240ml oral supplementation TID is encouraged if pt continues refusing food. 2. If EN preferd, consider TF Nepro@ 25ml/hr (49g Protein, 1062kcal 436ml free water. Flush with allowed H2O q6r. 4. Advance to [facility] [place]-60 Renal standard diet if HD initiated. 5. consider TPN per pharmacy meeting her daily protein and energy requirement if GI unaccessible. Expected Outcomes/Goals: prevent uremic syndrome, pervent wt loss, controlled DM Plan discussed with: Other Total Time (mins): 35 MARIA R MAE MD Mar 26, 2025 20:50
[2025-03-27 01:00] VITALS: BP 176/63; PULSE 96; RESP 17; TEMP 98.2; O2SAT 98
[2025-03-27 05:00] VITALS: BP 164/89; PULSE 91; RESP 18; TEMP 97.6; O2SAT 100
[2025-03-27 08:00] VITALS: PULSE 97; O2SAT 94
[2025-03-27 09:00] VITALS: BP 164/79; PULSE 92; RESP 17; TEMP 97.7; O2SAT 98
--- NOTE | 2025-03-27 11:59 | DVHPN2 ---
Progress Note Date Seen: Mar 24, 2025 Has the PT tested + for MRSA If YES, has PT been informed?: No Medical Necessity Reason Pt with a Central, PICC or Fol: Yes The following are medically ne: Rivera Catheter Objective vital signs Vital Sign Date Time Temp Pulse Resp B/P (MAP) Pulse Ox O2 Delivery O2 Flow Rate FiO2 03/27/25 09:31 164/79 03/27/25 09:30 85 03/27/25 09:00 97.7 17 98 97.7 03/27/25 08:00 Room Air* 0 21 Total Intake and Output 03/26/25 03/26/25 03/27/25 15:00 23:00 07:00 Intake Total 410 ml 400 ml Balance 410 ml 400 ml medications Current Medications Medications Dose Ordered Sig/Ashley Route Start Time Stop Time Status Last Admin Dose Admin Sodium Chloride 1,000 ml @ 75 mls/hr [id number] IV 03/16/25 12:45 03/26/25 15:17 75 MLS/HR Ondansetron HCl 4 mg Q4HP PRN IV 03/16/25 12:45 Docusate Sodium 100 mg BIDPRN PRN PO 03/16/25 12:45 Acetaminophen 650 mg Q6HP PRN PO 03/16/25 12:45 03/26/25 10:34 650 MG Ceftriaxone Sodium 50 ml @ 100 mls/hr DAILY@09 IV 03/17/25 09:00 03/27/25 09:19 100 MLS/HR Lorazepam 1 mg ONCE PRN IV 03/16/25 22:00 Atorvastatin Calcium 40 mg HS PO 03/17/25 22:00 03/26/25 20:50 40 MG Clopidogrel Bisulfate 75 mg DAILY PO 03/18/25 10:00 03/27/25 09:30 75 MG Enteral Nutritional Formula 240 ml TIDWM PO 03/18/25 18:00 03/27/25 08:59 240 ML Metoprolol Tartrate 50 mg BID PO 03/18/25 22:00 03/27/25 09:30 50 MG Clonidine HCl 0.1 mg Q4HP PRN PO 03/19/25 00:45 03/27/25 02:04 0.1 MG Nifedipine 90 mg DAILY PO 03/24/25 10:00 03/27/25 09:31 90 MG Acetaminophen/ Hydrocodone Bitart 1 tab Q6HPRN PRN PO 03/25/25 22:30 03/27/25 05:59 1 TAB laboratory and microbiology Laboratory Tests 03/25/25 04:20 03/24/25 05:19 Test 03/25/25 04:20 Range/Units Serum Glucose 108 H 74-106 mg/dL Microbiology Date/Time Source Procedure Growth Status 03/17/25 00:15 Blood Blood Culture - Final NO GROWTH AFTER 5 DAYS OF INCUBATION. Complete 03/16/25 16:25 Nose MRSA Screen - Final Complete Problem List/Assessment/Plan Problem List/Assessment/Plan Multiple strokes rule out cardioembolic source NSTEMI, likely type II secondary to above Hypertension Dyslipidemia Diabetes mellitus type 2 NILE on CKD COPD Anemia Critical right ICA stenosis/severe right ICA pending evaluation by cardiology and vasc surg son to make decision for endarterectomy Plan discussed with: Patient My Orders My Orders Orders - JAKOB MEJIA DO Procedure Category Date Status Time Discharge DISCHARGE 03/27/25 Transmitted 11:56 Dietary Evaluation Review Comments: 1. 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 Nepro 240ml oral supplementation TID is encouraged if pt continues refusing food. 2. If EN preferd, consider TF Nepro@ 25ml/hr (49g Protein, 1062kcal 436ml free water. Flush with allowed H2O q6r. 4. Advance to CCHO-60 Renal standard diet if HD initiated. 5. consider TPN per pharmacy meeting her daily protein and energy requirement if GI unaccessible. Expected Outcomes/Goals: prevent uremic syndrome, pervent wt loss, controlled DM JAKOB MEJIA DO Mar 27, 2025 11:59
--- NOTE | 2025-03-27 12:00 | DVHDS2 ---
Discharge Summary Date of Admission Mar 16, 2025 at 12:36 Date of Discharge: Mar 27, 2025 Labs/Diagnostic Data: Laboratory Results Test 03/25/25 04:20 03/24/25 05:19 03/18/25 08:36 03/17/25 09:32 Sodium Level 142 mmol/L (136-145) Potassium Level 4.0 mmol/L (3.5-5.1) Chloride Level 106 mmol/L (98-107) Carbon Dioxide Level 23 mmol/L (20-31) Anion Gap 13 (5-15) Blood Urea Nitrogen 6 mg/dL (9-23) Creatinine 1.12 mg/dL (0.550-1.02) Glomerular Filtration Rate Calc 48 mL/min (>90) BUN/Creatinine Ratio 5.4 (10.0-20.0) Serum Glucose 108 mg/dL (74-106) Calcium Level 9.2 mg/dL (8.7-10.4) Total Bilirubin 0.5 mg/dL (0.2-1.0) Aspartate Amino Transferase (AST) 68 U/L (13-40) Alanine Aminotransferase (ALT) 49 U/L (7-40) Alkaline Phosphatase 167 U/L (46-116) Total Protein 7.4 g/dL (5.7-8.2) Albumin 3.9 g/dL (3.2-4.8) White Blood Count 5.4 10^3/uL (4.4-10.8) Red Blood Count 3.21 10^6/uL (4.0-5.20) Hemoglobin 10.1 g/dL (12.2-16.2) Hematocrit 29.5 % (36.0-46.0) Mean Corpuscular Volume 92.0 fL (80.0-100.0) Mean Corpuscular Hemoglobin 31.4 pg (28.0-32.0) Mean Corpuscular Hemoglobin Concent 34.2 g/dL (32.0-36.0) Red Cell Distribution Width 15.4 % (11.8-14.3) Platelet Count 470 10^3/uL (140-450) Mean Platelet Volume 8.5 fL (6.9-10.8) Neutrophils (%) (Auto) 47.4 % (37.0-80.0) Lymphocytes (%) (Auto) 39.8 % (10.0-50.0) Monocytes (%) (Auto) 10.9 % (0.0-12.0) Eosinophils (%) (Auto) 1.3 % (0.0-7.0) Basophils (%) (Auto) 0.6 % (0.0-2.0) Neutrophils # (Auto) 2.6 10 ^3/uL (1.6-8.6) Lymphocytes # (Auto) 2.1 10 ^3/uL (0.4-5.4) Monocytes # (Auto) 0.6 10 ^3/uL (0-1.3) Eosinophils # (Auto) 0.1 10 ^3/uL (0-0.8) Basophils # (Auto) 0 10 ^3/uL (0-0.2) Nucleated Red Blood Cells 0.5 % Prothrombin Time 11.4 sec (9.3-11.8) Prothrombin Time INR 1.08 (0.9-1.15) Activated Partial Thromboplast Time 27.6 SEC (24.5-34.5) Magnesium Level 2.2 mg/dL (1.6-2.6) B-Type Natriuretic Peptide 201.44 pg/mL (0-100) Troponin I High Sensitivity 66 ng/L (</=34) Thyroid Stimulating Hormone (TSH) 0.61 uIU/mL (0.55-4.78) Test 03/17/25 02:23 03/16/25 08:28 03/16/25 05:51 Hemoglobin A1c 6.4 % A1C (<5.7) Urine Color Yellow (Yellow) Urine Clarity Turbid (Clear) Urine pH 5.5 (5.0-9.0) Urine Specific [place] 1.021 (1.001-1.035) Urine Protein 1+ (Negative) Urine Ketones Trace (Negative) Urine Blood Negative /uL (Negative) Urine Nitrite Negative (Negative) Urine Bilirubin Negative (Negative) Urine Urobilinogen Normal mg/dL (Negative) Urine Leukocyte Esterase Negative /uL (Negative) Urine RBC 2 /hpf (0 - 4) Urine Microscopic WBC 2 /HPF (0-5) Urine Squamous Epithelial Cells None seen /hpf (<5) Urine Bacteria None seen /hpf (None Seen) Urine Hyaline Casts Many /lpf (0 - 2) Urine Granular Casts Many /lpf (0) Urine Mucus Few (None Seen) Urine Glucose Normal mg/dL (Normal) Lactic Acid Level 1.0 mmol/L (0.4-2.0) Triglycerides Level 89 mg/dL (< 150) Cholesterol Level 115 mg/dL (< 200) LDL Cholesterol 56 mg/dL (< 100) HDL Cholesterol 35 mg/dL (40-59) Other Laboratory Tests 03/25/25 04:20 03/24/25 05:19 Brief Hx & Hospital Course: Multiple strokes rule out cardioembolic source NSTEMI, likely type II secondary to above Hypertension Dyslipidemia Diabetes mellitus type 2 NILE on CKD COPD Anemia Critical right ICA stenosis/severe right ICA son and pt declined Condition at Discharge: Fair Final Diagnosis/Problems List CVA Discharge Disposition: Home Discharge Instruct/Medications Diet: Cardiac 2g Na,low cholest Activity: No Restrictions, As Tolerated Scheduled Amlodipine Besylate (Amlodipine Besylate), 1 TAB PO DAILY, (Reported) Atorvastatin Calcium (Atorvastatin Calcium), 40 MG PO HS Cephalexin (Keflex Capsule), 250 MG PO QID Clindamycin Hcl (Clindamycin Hcl), 450 MG PO TID Clindamycin Hcl (Clindamycin Hcl), 1 CAP PO TID Clindamycin Hcl (Clindamycin Hcl), 150 MG PO TID Clonidine Hydrochloride (Clonidine Hcl), 1 TAB PO BID, (Reported) Clopidogrel Bisulfate (Clopidogrel), 1 TAB PO DAILY, (Reported) Gabapentin (Gabapentin), 1 CAP PO BID, (Reported) Hydrochlorothiazide (Hydrochlorothiazide), 1 TAB PO DAILY, (Reported) Lisinopril (Lisinopril), 1 TAB PO DAILY, (Reported) Metoprolol Tartrate (Metoprolol Tartrate), 50 MG PO BID, (Reported) Metoprolol Tartrate (Lopressor Tablet), 50 MG PO BID Nifedipine (Nifedipine Er), 60 MG PO DAILY Sevelamer Carbonate (Renvela), 3 TAB PO TID, (Reported) Sulfamethoxazole W/Trimethopri (Bactrim Ds Tablet), 1 TAB PO BID Scheduled PRN Acetaminophen (Acetaminophen), 500 MG PO Q4HP PRN Ondansetron Odt 4MG Tab (Zofran Po), 4 MG PO Q6HP PRN Miscellaneous Medications Omeprazole (Prilosec Susp (For Gt)), 20 MG GT, (Reported) Discharge Statement: "Patient was advised to return to the ER or call 911 if any headaches, dizziness, shortness of breath, chest pain, abdominal pain, bleeding, fevers, or worsening of medical condition. Patient was counseled about treatment plan, medications, possible side effects, patientverbalized understanding. All questions were answered to the best of my ability. 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
--- NOTE | 2025-03-27 12:00 | DVHPN2 ---
Progress Note Date Seen: Mar 25, 2025 Has the PT tested + for MRSA If YES, has PT been informed?: No Medical Necessity Reason Pt with a Central, PICC or Fol: Yes The following are medically ne: Rivera Catheter Objective vital signs Vital Sign Date Time Temp Pulse Resp B/P (MAP) Pulse Ox O2 Delivery O2 Flow Rate FiO2 03/27/25 09:31 164/79 03/27/25 09:30 85 03/27/25 09:00 97.7 17 98 97.7 03/27/25 08:00 Room Air* 0 21 Total Intake and Output 03/26/25 03/26/25 03/27/25 15:00 23:00 07:00 Intake Total 410 ml 400 ml Balance 410 ml 400 ml medications Current Medications Medications Dose Ordered Sig/Ashley Route Start Time Stop Time Status Last Admin Dose Admin Sodium Chloride 1,000 ml @ 75 mls/hr [id number] IV 03/16/25 12:45 03/26/25 15:17 75 MLS/HR Ondansetron HCl 4 mg Q4HP PRN IV 03/16/25 12:45 Docusate Sodium 100 mg BIDPRN PRN PO 03/16/25 12:45 Acetaminophen 650 mg Q6HP PRN PO 03/16/25 12:45 03/26/25 10:34 650 MG Ceftriaxone Sodium 50 ml @ 100 mls/hr DAILY@09 IV 03/17/25 09:00 03/27/25 09:19 100 MLS/HR Lorazepam 1 mg ONCE PRN IV 03/16/25 22:00 Atorvastatin Calcium 40 mg HS PO 03/17/25 22:00 03/26/25 20:50 40 MG Clopidogrel Bisulfate 75 mg DAILY PO 03/18/25 10:00 03/27/25 09:30 75 MG Enteral Nutritional Formula 240 ml TIDWM PO 03/18/25 18:00 03/27/25 08:59 240 ML Metoprolol Tartrate 50 mg BID PO 03/18/25 22:00 03/27/25 09:30 50 MG Clonidine HCl 0.1 mg Q4HP PRN PO 03/19/25 00:45 03/27/25 02:04 0.1 MG Nifedipine 90 mg DAILY PO 03/24/25 10:00 03/27/25 09:31 90 MG Acetaminophen/ Hydrocodone Bitart 1 tab Q6HPRN PRN PO 03/25/25 22:30 03/27/25 05:59 1 TAB Examination: GENERAL:Normal, HEENT:Normal, NECK:Normal, LUNGS:Normal laboratory and microbiology Laboratory Tests 03/25/25 04:20 03/24/25 05:19 Test 03/25/25 04:20 Range/Units Serum Glucose 108 H 74-106 mg/dL Microbiology Date/Time Source Procedure Growth Status 03/17/25 00:15 Blood Blood Culture - Final NO GROWTH AFTER 5 DAYS OF INCUBATION. 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 Nepro 240ml oral supplementation TID is encouraged if pt continues refusing food. 2. If EN preferd, consider TF Nepro@ 25ml/hr (49g Protein, 1062kcal 436ml free water. Flush with allowed H2O q6r. 4. Advance to CCHO-60 Renal standard diet if HD initiated. 5. consider TPN per pharmacy meeting her daily protein and energy requirement if GI unaccessible. Expected Outcomes/Goals: prevent uremic syndrome, pervent wt loss, controlled DM JAKOB MEJIA DO Mar 27, 2025 12:00
--- NOTE | 2025-03-27 12:00 | DVHPN2 ---
Progress Note Date Seen: Mar 26, 2025 Has the PT tested + for MRSA If YES, has PT been informed?: No Medical Necessity Reason Pt with a Central, PICC or Fol: Yes The following are medically ne: Rivera Catheter Objective vital signs Vital Sign Date Time Temp Pulse Resp B/P (MAP) Pulse Ox O2 Delivery O2 Flow Rate FiO2 03/27/25 09:31 164/79 03/27/25 09:30 85 03/27/25 09:00 97.7 17 98 97.7 03/27/25 08:00 Room Air* 0 21 Total Intake and Output 03/26/25 03/26/25 03/27/25 15:00 23:00 07:00 Intake Total 410 ml 400 ml Balance 410 ml 400 ml medications Current Medications Medications Dose Ordered Sig/Ashley Route Start Time Stop Time Status Last Admin Dose Admin Sodium Chloride 1,000 ml @ 75 mls/hr [id number] IV 03/16/25 12:45 03/26/25 15:17 75 MLS/HR Ondansetron HCl 4 mg Q4HP PRN IV 03/16/25 12:45 Docusate Sodium 100 mg BIDPRN PRN PO 03/16/25 12:45 Acetaminophen 650 mg Q6HP PRN PO 03/16/25 12:45 03/26/25 10:34 650 MG Ceftriaxone Sodium 50 ml @ 100 mls/hr DAILY@09 IV 03/17/25 09:00 03/27/25 09:19 100 MLS/HR Lorazepam 1 mg ONCE PRN IV 03/16/25 22:00 Atorvastatin Calcium 40 mg HS PO 03/17/25 22:00 03/26/25 20:50 40 MG Clopidogrel Bisulfate 75 mg DAILY PO 03/18/25 10:00 03/27/25 09:30 75 MG Enteral Nutritional Formula 240 ml TIDWM PO 03/18/25 18:00 03/27/25 08:59 240 ML Metoprolol Tartrate 50 mg BID PO 03/18/25 22:00 03/27/25 09:30 50 MG Clonidine HCl 0.1 mg Q4HP PRN PO 03/19/25 00:45 03/27/25 02:04 0.1 MG Nifedipine 90 mg DAILY PO 03/24/25 10:00 03/27/25 09:31 90 MG Acetaminophen/ Hydrocodone Bitart 1 tab Q6HPRN PRN PO 03/25/25 22:30 03/27/25 05:59 1 TAB Examination: GENERAL:Normal, HEENT:Normal, NECK:Normal, LUNGS:Normal, CVS:Normal, ABDOMEN:Normal, MSK:Normal laboratory and microbiology Laboratory Tests 03/25/25 04:20 03/24/25 05:19 Test 03/25/25 04:20 Range/Units Serum Glucose 108 H 74-106 mg/dL Microbiology Date/Time Source Procedure Growth Status 03/17/25 00:15 Blood Blood Culture - Final NO GROWTH AFTER 5 DAYS OF INCUBATION. 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 pending evaluation by cardiology and vasc surg son to make decision Plan discussed with: Patient My Orders My Orders Orders - JAKOB MEJIA DO Procedure Category Date Status Time Discharge DISCHARGE 03/27/25 Transmitted 11:56 Dietary Evaluation Review Comments: 1. 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 Nepro 240ml oral supplementation TID is encouraged if pt continues refusing food. 2. If EN preferd, consider TF Nepro@ 25ml/hr (49g Protein, 1062kcal 436ml free water. Flush with allowed H2O q6r. [facility]. [facility] if [facility] initiated. 5. consider TPN per pharmacy meeting her daily protein and energy requirement if GI unaccessible. Expected Outcomes/Goals: prevent uremic syndrome, pervent wt loss, controlled DM JAKOB MEJIA DO Mar 27, 2025 12:00
[2025-03-27 13:00] VITALS: BP 153/62; PULSE 79; RESP 18; TEMP 98.2; O2SAT 97
[2025-03-27 17:00] VITALS: BP 147/78; PULSE 82; RESP 17; TEMP 98.2; O2SAT 98
--- NOTE | 2025-03-27 19:37 | DVHPN2 ---
Progress Note - Dictate Date Seen: Mar 27, 2025 Has the PT tested + for MRSA If YES, has PT been informed?: No Medical Necessity Reason Pt with a Central, PICC or Fol: Yes The following are medically ne: Rivera Catheter Subjective Patient was seen and evaluated in follow up. No acute events overnight. Patient is awake and alert. No new complaints. Planned for discharge home. vital signs Vital Sign Date Time Temp Pulse Resp B/P (MAP) Pulse Ox O2 Delivery O2 Flow Rate FiO2 03/27/25 17:00 98.2 82 17 147/78 (101) 98 98.2 03/27/25 08:00 Room Air* 0 21 Total Intake and Output 03/26/25 03/26/25 03/27/25 15:00 23:00 07:00 Intake Total 410 ml 400 ml Balance 410 ml 400 ml objective Vitals and nursing notes reviewed. General Appearance: In no acute distress. HEENT: Atraumatic, PERRLA Cardiovascular: Regular rate, Normal S1, Normal S2 Pulmonary: Normal effort. 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 Cleared for discharge from Nephrology standpoint. Dietary Evaluation Review Comments: 1. Poor appetite d/t [facility]ILE on CKD4, [facility] with 50g protein restriction is recommended. Nepro 240ml oral supplementation TID is encouraged if pt continues refusing food. 2. If EN preferd, consider TF Nepro@ 25ml/hr (49g Protein, 1062kcal 436ml free water. Flush with allowed H2O q6r. [facility]. [facility] diet if HD initiated. 5. consider TPN per pharmacy meeting her daily protein and energy requirement if GI unaccessible. Expected Outcomes/Goals: prevent uremic syndrome, pervent wt loss, controlled DM Plan discussed with: Patient, Other (RN) RIAN LA DO Mar 27, 2025 19:37
--- NOTE | 2025-04-05 08:51 | ECG ---
[facility] Test Date: 2025-03-16 Test Time: 05:18:54 Pat Name: GENI DIAZ Department[facility] Clinician: ASIM : 1935 Requested By: MIGUEL ANGEL CÁRDENAS Order Number: [id number] Reading MD: Brandon Downey Measurements Intervals [place] Rate: 72 P: 50 NV: 156 QRS: 40 QRSD: 74 T: 23 QT: 363 QTc: 398 Interpretive Statements Sinus rhythm Consider left atrial enlargement Abnormal R-wave progression, early transition Consider left ventricular hypertrophy Electronically Signed On 04-06-2025 17:26:24 PST by Brandon Downey Please click the below link to view image of tracing.
== END 2025-03-27 18:21 | disposition home health service (06) | DRG 64 ==
LOC: EDBD 04:33 → ER 04:41 → OVERFLOW 12:36 → WEST WING 15:01 → TELE-WESTW 03-17 07:58
PROVIDERS: ADMIT Internal Medicine; ATTEND Internal Medicine
PROC: B24BZZ4 Ultrasonography of Heart with Aorta, Transesophageal (ICD-10-PCS; principal; 2025-03-17)
PROC: 04JY3ZZ Inspection of Lower Artery, Percutaneous Approach (ICD-10-PCS; 2025-03-24)
DX: I63.9 Cerebral infarction, unspecified (principal); G93.41 Metabolic encephalopathy; I21.A1 Myocardial infarction type 2; G93.1 Anoxic brain damage, not elsewhere classified; N17.9 Acute kidney failure, unspecified; E11.22 Type 2 diabetes mellitus with diabetic chronic kidney disease; D64.9 Anemia, unspecified; E11.51 Type 2 diabetes mellitus with diabetic peripheral angiopathy without gangrene; E78.5 Hyperlipidemia, unspecified; N18.4 Chronic kidney disease, stage 4 (severe); I65.23 Occlusion and stenosis of bilateral carotid arteries; J44.9 Chronic obstructive pulmonary disease, unspecified; I12.9 Hypertensive chronic kidney disease with stage 1 through stage 4 chronic kidney disease, or unspecified chronic kidney disease; Z53.9 Procedure and treatment not carried out, unspecified reason; Z87.891 Personal history of nicotine dependence; Z91.81 History of falling; Z82.49 Family history of ischemic heart disease and other diseases of the circulatory system; Z83.3 Family history of diabetes mellitus; Z79.82 Long term (current) use of aspirin; Z79.899 Other long term (current) drug therapy; Z86.73 Personal history of transient ischemic attack (TIA), and cerebral infarction without residual deficits
CPT/HCPCS: 36223; 36415; 70450; 70496; 70498; 70551; 71045; 73120; 73620; 80048; 80053; 80061; 81001; 83036; 83605; 83735; 83880; 84443; 84484; 85025; 85610; 85730; 87040; 87081; 93005; 93312; 93886; 94640; 96361; 96365; 96368; 97110; 97116; 97163; 97530; 99152; A4565; G0378; J0153; J2250; J2405; Q9967